=== PATIENT | female | born 1940 | race Caucasian/White ===

== ENCOUNTER 2019-12-27 16:08 | Observation (INO) | payer OTHER ==
--- NOTE | 2019-12-27 17:39 | RAD REPORT ---
EXAM DESCRIPTION: RAD - Chest Single View - 12/27/2019 5:32 pm CLINICAL HISTORY: COUGH Chest pain. COMPARISON: Chest Single View dated 07/15/2016; CHEST SINGLE VIEW dated 04/04/2012 FINDINGS: Portable technique limits examination quality. The lungs are grossly clear. The heart is normal in size. No displaced fractures. IMPRESSION: No acute intrathoracic process suspected.
[2019-12-27 18:06] LABS: Basophils % 0.4 % (0-1.3); Hematocrit 42.2 % (36.0-45.0); Lymphocytes % 25.8 % (15.3-44.8); MPV 9.1 fL (7.6-11.3); RBC Red Blood Cell Count 4.57 M/uL (3.86-4.86)
[2019-12-27 18:18] LABS: ALT/SGPT 35 U/L (12-78); Alkaline Phosphatase 123 U/L (45-117); BUN Blood Urea Nitrogen 18 mg/dL (7-18); Bicarbonate 23 mmol/L (21-32); Bilirubin Direct 0.2 mg/dL (0-0.2); Bilirubin Total 0.9 mg/dL (0.2-1.0); NT PRO-BNP 122 pg/mL (<450); Protein, Total 8.1 g/dL (6.4-8.2); Sodium Level 134 mmol/L (136-145); Troponin (Emerg Dept Use Only) < 0.02 ng/mL (0.0-0.045)
[2019-12-27 18:20] LABS: AST/SGOT 32 U/L (15-37); Magnesium 1.9 mg/dL (1.8-2.4); Potassium 4.8 mmol/L (3.5-5.1)
[2019-12-27] MEDS ORDERED: NA CHLORIDE 0.9% 1,000 ML ONE (18:20)
[2019-12-27] MEDS ORDERED: ACETAMINOPHEN 325 MG TABLET ONE (18:20)
[2019-12-27] MEDS ORDERED: CEFTRIAXONE/SWI 1gm 1 GM/10 ML SYR ONE (18:21)
[2019-12-27 18:34] LABS: Glucose Level 428 mg/dL (74-106)
[2019-12-27 18:47] LABS: Urine Blood 1+ (NEG); Urine Glucose 2+ (NEG); Urine Protein NEGATIVE (NEG); Urine pH 5.5 (5.0-7.0)
--- NOTE | 2019-12-27 19:18 | RAD REPORT ---
EXAM DESCRIPTION: CTAbdomen Pelvis W Contrast - 12/27/2019 6:51 pm CLINICAL HISTORY: Abdominal pain. Hydronephrosis;Flank pain;Abd pain COMPARISON: CT ABD PELVIS W CONTRAST dated 04/04/2012 TECHNIQUE: Biphasic CT imaging of the abdomen and pelvis was performed with 100 ml non-ionic IV cont rast. All CT scans are performed using dose optimization technique as appropriate and may include automated exposure control or mA/KV adjustment according to patient size. FINDINGS: The lung bases are clear. Mild nodular liver contour is present compatible with cirrhosis. No intra or extrahepatic biliary fernando e dilatation. Cholecystectomy. The spleen, adrenal glands, pancreas and kidneys are within normal hawkins its. Benign cyst is noted lateral cortex right kidney. No bowel obstruction, free air, free fluid or abscess. Prominent retained stool in the colon. The falguni endix is normal. No evidence of significant lymphadenopathy. No suspicious bony findings. IMPRESSION: No acute intra-abdominal or pelvic finding. Mild liver cirrhosis. Prominent retained stool in the colon.
[2019-12-27] MEDS ORDERED: INSULIN -REGULAR HUMAN 50 UNIT/0.5 ML ML ONE (19:30)
[2019-12-27] MEDS ORDERED: INSULIN GLARGINE 100 UNITS/ML SQ ONE (19:32)
--- NOTE | 2019-12-27 19:35 | ER ---
Nurse's Notes [facility] Name: Shaye Tristan Age: 79 yrs Sex: Female : 1940 Arrival Date: 12/27/2019 Time: 16:16 Bed 20 Private MD: Diagnosis: Sepsis due to other Gram-negative organisms;Dysuria;Fever, unspecified;Unspecified cirrhosis of liver;Type 2 diabetes mellitus-poorly controlled Presentation: 12/26 17:02 Chief complaint: Patient states: Seen at ED in [place], dx w/ UTI, released ph yesterday, contacted today by hospital and told to come to ED for "infection in blood", COVID swab negative, pt febrile in triage, states that she has not started antibiotics, denies pain, N/V/D. Coronavirus screen: Patient denies shortness of breath or difficulty breathing. Patient reports a measured and/or subjective temperature greater than 100.4F. Patient denies travel on a cruise ship or to a country the [facility] currently lists as an affected area. Patient denies contact with known and/or suspected case of COVID-19. Prior COVID test [place] ED, test negative. Ebola Screen: No symptoms or risks identified at this time. Initial Sepsis Screen: Does the patient meet any 2 criteria? No. Patient's initial sepsis screen is negative. Does the patient have a suspected source of infection? Yes: Dysuria/Frequency/Urgency/UTI. Risk Assessment: Do you want to hurt yourself or someone else? Patient reports no desire to harm self or others. Onset of symptoms was December 27, 2019. 17:02 Method Of Arrival: Ambulatory ph 17:02 Acuity: SARAH 3 ph Historical: - Allergies: 17:07 metformin; ph - PMHx: 17:07 Diabetes - NIDDM; ph - PSHx: 17:07 Cholecystectomy; ph - Immunization history:: Adult Immunizations unknown. - Social history:: Smoking status: Patient denies any tobacco usage or history of. - Family history:: not pertinent. Screenin:15 Abuse screen: Denies threats or abuse. Nutritional screening: No deficits noted. vc Tuberculosis screening: No symptoms or risk factors identified. Fall Risk None identified. Assessment: 17:15 General: Appears in no apparent distress. comfortable, Behavior is calm, cooperative, vc appropriate for age. Pain: Denies pain. Neuro: Level of Consciousness is awake, alert, obeys commands, Oriented to person, place, time, situation, Appropriate for age. Cardiovascular: Capillary refill < 3 seconds Patient's skin is warm and dry. Respiratory: Airway is patent Respiratory effort is even, unlabored, Respiratory pattern is regular, symmetrical. GI: No signs and/or symptoms were reported involving the gastrointestinal system. : Reports urinary frequency. Derm: Skin is intact, is healthy with good turgor. 18:15 Reassessment: Patient appears in no apparent distress at this time. Patient and/or vc family updated on plan of care and expected duration. Pain level reassessed. Patient is alert, oriented x 3, equal unlabored respirations, skin warm/dry/pink. 19:00 Reassessment: Patient appears in no apparent distress at this time. Patient and/or vc family updated on plan of care and expected duration. Pain level reassessed. Patient is alert, oriented x 3, equal unlabored respirations, skin warm/dry/pink. 20:00 Reassessment: Patient appears in no apparent distress at this time. Patient and/or vc family updated on plan of care and expected duration. Pain level reassessed. Patient is alert, oriented x 3, equal unlabored respirations, skin warm/dry/pink. Patient states feeling better. Patient states symptoms have improved. 21:00 Reassessment: Patient appears in no apparent distress at this time. Patient and/or vc family updated on plan of care and expected duration. Pain level reassessed. Patient is alert, oriented x 3, equal unlabored respirations, skin warm/dry/pink. Patient states feeling better. Patient states symptoms have improved. 21:46 Reassessment: Patient appears in no apparent distress at this time. Patient and/or vc family updated on plan of care and expected duration. Pain level reassessed. Patient is alert, oriented x 3, equal unlabored respirations, skin warm/dry/pink. Patient states feeling better. Patient states symptoms have improved. Vital Signs: 17:02 BP 121 / 88; Pulse 88; Resp 18; Temp 100.4(TE); Pulse Ox 98% on R/A; Weight 70.31 kg; ph Height 5 ft. 3 in. (160.02 cm); Pain 0/10; 18:00 BP 126 / 71; Pulse 72; Resp 18; Pulse Ox 98% on R/A; vc 19:00 BP 111 / 60; Pulse 72; Resp 18; Pulse Ox 99% on R/A; vc 20:00 BP 108 / 69; Pulse 80; Resp 20; Pulse Ox 98% on R/A; vc 21:00 BP 106 / 64; Pulse 78; Resp 14; Temp 98.9; Pulse Ox 99% ; vc 21:46 BP 98 / 60; Pulse 72; Resp 15; Temp 98.9; Pulse Ox 96% on R/A; Weight 70.31 kg; Pain vc 0/10; 21:46 Body Mass Index 27.46 (70.31 kg, 160.02 cm) vc ED Course: 16:16 Patient arrived in ED. bp1 17:07 Triage completed. ph 17:08 Arm band placed on Patient placed in an exam room, on a stretcher. ph 17:09 Bryan Haywood MD is Attending Physician. sudhir 17:15 Patient has correct armband on for positive identification. Call light in reach. vc nurse monitoring on. Pulse ox on. NIBP on. 17:17 Sully Gutierrez, RN is Primary Nurse. vc 17:32 XRAY Chest (1 view) In Process Unspecified. EDMS 18:51 CT Abd/Pelvis - IV Contrast Only: iv only, attn pyelo In Process Unspecified. EDMS 19:33 Brendon Christianson MD is Hospitalizing Provider. sudhir 20:45 Warm blanket given. Pillow given. Verbal reassurance given. jp3 20:45 Head of bed lowered. jp3 22:20 No provider procedures requiring assistance completed. Patient admitted, IV remains in vc place. Administered Medications: 18:20 Drug: NS 0.9% 1000 ml Route: IV; Rate: 1 bolus; Site: right antecubital; vc 21:01 Follow up: IV Status: Completed infusion; IV Intake: 1000ml vc 18:20 Drug: Rocephin 1 grams Route: IV; Rate: per protocol; Site: right antecubital; vc 21:01 Follow up: Response: No adverse reaction; IV Status: Completed infusion; IV Intake: 10mlvc 18:20 Drug: Tylenol 650 mg Route: PO; vc 21:01 Follow up: Response: No adverse reaction vc 19:28 Drug: LanTUS 30 units Route: Sub-Q; Site: right upper arm; vc 21:00 Follow up: Response: No adverse reaction vc 19:29 Drug: Insulin Regular Human 10 units {Co-Signature: ll1 (Shahrzad Akhtar RN).} Route: IVP; vc Site: right antecubital; 21:00 Follow up: Response: No adverse reaction vc 20:28 Drug: Meropenem 1 grams Route: IV; Rate: per protocol; Site: right antecubital; vc 21:00 Follow up: IV Status: Completed infusion; IV Intake: 1000ml vc Intake: 21:00 IV: 1000ml; Total: 1000ml. vc 21:01 IV: 10ml; Total: 1010ml. vc 21:01 IV: 1000ml; Total: 2010ml. vc Outcome: 19:34 Decision to Hospitalize by Provider. sudhir 22:20 Patient left the ED. vc 22:20 Admitted to Med/surg accompanied by tech, room 207, Report called to VASYL Guillen 22:20 Condition: good 22:20 Instructed on discharge instructions, follow up and referral plans. vc Signatures: Dispatcher [employer] Bryan Hawk MD MD cha Hall, Patricia, RN RN River Cedillo jp3 Sully Gutierrez RN RN Che Hebert RN ll1
--- NOTE | 2019-12-27 19:35 | EDPHYS ---
Physician Documentation [facility] Name: Shaye Tristan Age: 79 yrs Sex: Female : 1940 Arrival Date: 12/27/2019 Time: 16:16 Bed 20 Private MD: ED Physician Bryan Haywood HPI: 12/26 17:49 This 79 yrs old Female presents to ER via Ambulatory with complaints of sudhir Advised by another facility to seek medical treatment because lab results. 17:49 The patient presents with urinary symptoms, dysuria, frequency, urgency. Onset: The sudhir symptoms/episode began/occurred 3 day(s) ago. Modifying factors: The symptoms are alleviated by nothing, the symptoms are aggravated by nothing. Associated signs and symptoms: Pertinent positives: dysuria, fever, nausea, urinary frequency. Severity of symptoms: At their worst the symptoms were moderate, in the emergency department the symptoms are unchanged. fever, dysuria, ams, weakness, told gram - rods pos blood cultures from er last night. The patient reports fever, that was measured at 101 degrees Fahrenheit. Historical: - Allergies: 17:07 metformin; ph - PMHx: 17:07 Diabetes - NIDDM; ph - PSHx: 17:07 Cholecystectomy; ph - Immunization history:: Adult Immunizations unknown. - Social history:: Smoking status: Patient denies any tobacco usage or history of. - Family history:: not pertinent. ROS: 17:49 Eyes: Negative for injury, pain, redness, and discharge, ENT: Negative for injury, sudhir pain, and discharge, Neck: Negative for injury, pain, and swelling, Cardiovascular: Negative for chest pain, palpitations, and edema, Respiratory: Negative for shortness of breath, cough, wheezing, and pleuritic chest pain, : Negative for injury, bleeding, discharge, and swelling, MS/Extremity: Negative for injury and deformity, Skin: Negative for injury, rash, and discoloration, Neuro: Negative for headache, weakness, numbness, tingling, and seizure, Psych: Negative for depression, anxiety, suicide ideation, homicidal ideation, and hallucinations, Allergy/Immunology: Negative for hives, rash, and allergies, Endocrine: Negative for neck swelling, polydipsia, polyuria, polyphagia, and marked weight changes, Hematologic/Lymphatic: Negative for swollen nodes, abnormal bleeding, and unusual bruising. 17:49 Constitutional: Positive for body aches, chills, fever. 17:49 Back: Negative for pain at rest. 17:49 : Positive for urinary symptoms, urinary frequency, small amounts, burning with urination, foul smelling urine. Exam: 17:49 Head/Face: Normocephalic, atraumatic. Eyes: Pupils equal round and reactive to light, sudhir extra-ocular motions intact. Lids and lashes normal. Conjunctiva and sclera are non-icteric and not injected. Cornea within normal limits. Periorbital areas with no swelling, redness, or edema. ENT: Nares patent. No nasal discharge, no septal abnormalities noted. Tympanic membranes are normal and external auditory canals are clear. Oropharynx with no redness, swelling, or masses, exudates, or evidence of obstruction, uvula midline. Mucous membranes moist. Neck: Trachea midline, no thyromegaly or masses palpated, and no cervical lymphadenopathy. Supple, full range of motion without nuchal rigidity, or vertebral point tenderness. No Meningismus. Chest/axilla: Normal chest wall appearance and motion. Nontender with no deformity. No lesions are appreciated. Cardiovascular: Regular rate and rhythm with a normal S1 and S2. No gallops, murmurs, or rubs. Normal PMI, no JVD. No pulse deficits. Respiratory: Lungs have equal breath sounds bilaterally, clear to auscultation and percussion. No rales, rhonchi or wheezes noted. No increased work of breathing, no retractions or nasal flaring. Abdomen/GI: Soft, non-tender, with normal bowel sounds. No distension or tympany. No guarding or rebound. No evidence of tenderness throughout. Skin: Warm, dry with normal turgor. Normal color with no rashes, no lesions, and no evidence of cellulitis. MS/ Extremity: Pulses equal, no cyanosis. Neurovascular intact. Full, normal range of motion. Neuro: Awake and alert, GCS 15, oriented to person, place, time, and situation. Cranial nerves II-XII grossly intact. Motor strength 5/5 in all extremities. Sensory grossly intact. Cerebellar exam normal. Normal gait. Psych: Awake, alert, with orientation to person, place and time. Behavior, mood, and affect are within normal limits. 17:49 Constitutional: The patient appears febrile. Vital Signs: 17:02 BP 121 / 88; Pulse 88; Resp 18; Temp 100.4(TE); Pulse Ox 98% on R/A; Weight 70.31 kg; ph Height 5 ft. 3 in. (160.02 cm); Pain 0/10; 18:00 BP 126 / 71; Pulse 72; Resp 18; Pulse Ox 98% on R/A; vc 19:00 BP 111 / 60; Pulse 72; Resp 18; Pulse Ox 99% on R/A; vc 20:00 BP 108 / 69; Pulse 80; Resp 20; Pulse Ox 98% on R/A; vc 21:00 BP 106 / 64; Pulse 78; Resp 14; Temp 98.9; Pulse Ox 99% ; vc 21:46 BP 98 / 60; Pulse 72; Resp 15; Temp 98.9; Pulse Ox 96% on R/A; Weight 70.31 kg; Pain vc 0/10; 21:46 Body Mass Index 27.46 (70.31 kg, 160.02 cm) vc MDM: 17:09 Patient medically screened. sudhir 18:01 Differential diagnosis: viral Infection, bacterial infection, URI, pneumonia urinary sudhir tract infection. Differential Diagnosis sepsis. Data reviewed: vital signs, nurses notes, lab test result(s), EKG, radiologic studies, plain films. Data interpreted: property assessment monitor: rate is 88 beats/min, rhythm is regular. Test interpretation: by ED physician or midlevel provider: ECG, plain radiologic studies. Counseling: I had a detailed discussion with the patient and/or guardian regarding: the historical points, exam findings, and any diagnostic results supporting the discharge/admit diagnosis, lab results, radiology results, the need for further work-up and treatment in the hospital. 12/26 17:14 Order name: Basic Metabolic Panel; Complete Time: 19: [facility] 12/26 17:14 Order name: CBC with Diff; Complete Time: 18:[address] [facility] 12/26 17:14 Order name: LFT's; Complete Time: 19:08 sudhir 12/26 17:14 Order name: Magnesium; Complete Time: 19: [facility] 12/26 17:14 Order name: NT PRO-BNP; Complete Time: 19:[address] [facility] 12/26 17:14 Order name: Troponin (emerg Dept Use Only); Complete Time: 19:[address] [facility] 12/26 17:14 Order name: Lactate; Complete Time: 18:[address] [facility] 12/26 17:14 Order name: Blood Culture Adult (2) [facility] 12/26 17:14 Order name: Urine Culture [facility] 12/26 18:06 Order name: Urine Dipstick--Ancillary (enter results); Complete Time: 19:08 nm 12/26 19:46 Order name: Urine Microscopic Only mw2 12/26 20:46 Order name: Comprehensive Metabolic Panel [facility] 12/26 20:46 Order name: Comprehensive Metabolic Panel [facility] 12/26 20:46 Order name: Protime (+INR) [facility] 12/26 17:14 Order name: XRAY Chest (1 view); Complete Time: 18:[address] [facility] 12/26 17:14 Order name: EKG; Complete Time: 17:[address] [facility] 12/26 18:15 Order name: CT Abd/Pelvis - IV Contrast Only: iv only, attn pyelo; Complete Time: 19:[address] [facility] 12/26 20:46 Order name: Protime (+INR) [facility] 12/26 20:46 Order name: PTT, Activated Partial Thromb [facility] 12/26 20:46 Order name: PTT, Activated Partial Thromb [facility] 12/26 20:47 Order name: CONS Pharmacy Consult [facility] 12/26 20:47 Order name: Regular [facility] 12/26 20:47 Order name: CBC with Automated Diff [facility] 12/26 20:47 Order name: CBC with Automated Diff [facility] 12/26 17:14 Order name: Cardiac monitoring; Complete Time: 18:[address] [facility] 12/26 17:14 Order name: EKG - Nurse/Tech; Complete Time: 18:[address] [facility] 12/26 17:14 Order name: IV Saline Lock; Complete Time: 17:[address] [facility] 12/26 17:14 Order name: Labs collected and sent; Complete Time: 17:[address] [facility] 12/26 17:14 Order name: O2 Per Protocol; Complete Time: 17:[address] [facility] 12/26 17:14 Order name: O2 Sat Monitoring; Complete Time: 17:[address] [facility] 12/26 17:14 Order name: Urine Dipstick-Ancillary (obtain specimen); Complete Time: 18:[address] [facility] Administered Medications: 18:20 Drug: NS 0.9% 1000 ml Route: IV; Rate: 1 bolus; Site: right antecubital; vc 21:01 Follow up: IV Status: Completed infusion; IV Intake: 1000ml vc 18:20 Drug: Rocephin 1 grams Route: IV; Rate: per protocol; Site: right antecubital; vc 21:01 Follow up: Response: No adverse reaction; IV Status: Completed infusion; IV Intake: 10mlvc 18:20 Drug: Tylenol 650 mg Route: PO; vc 21:01 Follow up: Response: No adverse reaction vc 19:28 Drug: LanTUS 30 units Route: Sub-Q; Site: right upper arm; vc 21:00 Follow up: Response: No adverse reaction vc 19:29 Drug: Insulin Regular Human 10 units {Co-Signature: ll1 (Sharhzad Akhtar RN).} Route: IVP; vc Site: right antecubital; 21:00 Follow up: Response: No adverse reaction vc 20: Drug: Meropenem 1 grams Route: IV; Rate: per protocol; Site: right antecubital; vc 21:00 Follow up: IV Status: Completed infusion; IV Intake: 1000ml vc Disposition: 12/27/19 19:34 Hospitalization ordered by Brendon Christianson for Inpatient Admission. Preliminary diagnosis are Sepsis due to other Gram-negative organisms, Dysuria, Fever, unspecified, Unspecified cirrhosis of liver, Type 2 diabetes mellitus - poorly controlled. - Bed requested for Telemetry/MedSurg (Inpatient). - Status is Inpatient Admission. vc - Condition is Fair. - Problem is new. - Symptoms have improved. Signatures: Dispatcher [employer] EDMS Melinda Childs RN RN mw Anderson, Corey, MD MD cha Hall, Patricia, RN RN Sully Gutierrez RN RN Shahrzad Akhtar RN ll1 Corrections: (The following items were deleted from the chart) 19:38 19:34 Hospitalization Ordered by Brendon Christianson MD for Inpatient Admission. Preliminary [facility] diagnosis is Sepsis due to other Gram-negative organisms; Dysuria; Fever, unspecified. Bed requested for Telemetry/MedSurg (Inpatient). Status is Inpatient Admission. Condition is Fair. Problem is new. Symptoms have improved. [facility] 20:08 19:38 12/27/2019 19:34 Hospitalization Ordered by Brendon Christianson MD for Inpatient [facility] Admission. Preliminary diagnosis is Sepsis due to other Gram-negative organisms; Dysuria; Fever, unspecified; Unspecified cirrhosis of liver. Bed requested for Telemetry/MedSurg (Inpatient). Status is Inpatient Admission. Condition is Fair. Problem is new. Symptoms have improved. [facility] 21:16 20:08 12/27/2019 19:34 Hospitalization Ordered by Brendon Christianson MD for Inpatient mw Admission. Preliminary diagnosis is Sepsis due to other Gram-negative organisms; Dysuria; Fever, unspecified; Unspecified cirrhosis of liver; Type 2 diabetes mellitus - poorly controlled. Bed requested for Telemetry/MedSurg (Inpatient). Status is Inpatient Admission. Condition is Fair. Problem is new. Symptoms have improved. [facility] 22:20 21:16 12/27/2019 19:34 Hospitalization Ordered by Brendon Christianson MD for Inpatient vc Admission. Preliminary diagnosis is Sepsis due to other Gram-negative organisms; Dysuria; Fever, unspecified; Unspecified cirrhosis of liver; Type 2 diabetes mellitus - poorly controlled. Bed requested for Telemetry/MedSurg (Inpatient). Status is Inpatient Admission. Condition is Fair. Problem is new. Symptoms have improved. mw
[2019-12-27 20:11] LABS: Urine Bacteria 20-50 /HPF (<20); Urine Culture Reflex Order NOT NEEDED; Urine RBC <5 /HPF (NONE SEEN)
[2019-12-27] MEDS ORDERED: MORPHINE 2 MG/ML SYR IV PRN (20:44)
[2019-12-27] MEDS ORDERED: ONDANSETRON 4 MG/2 ML VIAL IV PRN (20:44)
[2019-12-27] MEDS: Levofloxacin500mg IV 500 MG/100 ML BAG IV SCH ×2 (21:00→23:40)
[2019-12-27] MEDS: NA CHLORIDE 0.9% 1,000 ML IV SCH ×2 (21:00→23:40)
[2019-12-27 22:32] VITALS: O2SAT 96
[2019-12-27 23:06] VITALS: BMI 28.6
[2019-12-28] MEDS: NA CHLORIDE 0.9% 1,000 ML IV SCH ×2 (04:24→10:05)
[2019-12-28 04:43] LABS: Absolute Lymphocytes (CBC) 3.1 K/uL (0.7-4.9); Basophils % 0.4 % (0-1.3); Lymphocytes % 29.5 % (15.3-44.8); MPV 9.2 fL (7.6-11.3); RBC Red Blood Cell Count 3.96 M/uL (3.86-4.86)
[2019-12-28 04:46] LABS: Protime INR 1.29
[2019-12-28 04:54] LABS: Albumin 2.4 g/dL (3.4-5.0); Bilirubin Total 0.6 mg/dL (0.2-1.0); Potassium 3.8 mmol/L (3.5-5.1); Protein, Total 6.4 g/dL (6.4-8.2)
[2019-12-28] MEDS ORDERED: CEFTRIAXONE/SWI 1gm 1 GM/10 ML SYR IV SCH (05:00)
[2019-12-28] MEDS ORDERED: CEFTRIAXONE 1 GM/NS 50 ML 1 GM/50 ML BAG IV SCH (06:00)
--- NOTE | 2019-12-28 08:17 | P.HP ---
Certification for Inpatient Patient admitted to: Inpatient With expected LOS: >2 Midnights Patient will require the following post-hospital care: None Practitioner: I am a practitioner with admitting privileges, knowledge of patient current condition, hospital course, and medical plan of care. Services: Services provided to patient in accordance with Admission requirements found in Title 42 Section 412.3 of the Code of Federal Regulations Patient History Date of Service: 12/27/19 Reason for admission: Sepsis/UTI History of Present Illness: Patient is a 79-year-old female came to the hospital febrile. Patient been feeling really we and short of breath. Patient was found have a urinary tract infection. Patient was really lethargic and not feeling well. Patient was admitted to the emergency room for further evaluation. Patient was started on IV fluids and IV antibiotics. Patient will be admitted for further evaluation. Allergies morphine Allergy (Intermediate, Verified 04/04/12 21:27) ITCHING/NAUSEA/HEADACHE metformin Allergy (Verified 12/27/19 23:04) Nausea/Vomiting Home Medications: Unobtainable 12/27/19 - Past Medical/Surgical History Has patient received pneumonia vaccine in the past: No Diabetic: Yes -: DM Past Surgical History: Patient denies surgical history - Family History Father Family History: Reviewed- Non-Contributory - Social History Smoking Status: Never smoker Alcohol use: No CD- Drugs: No Caffeine use: Yes Place of Residence: Home Review of Systems 10-point ROS is otherwise unremarkable Physical Examination - Vital Signs Temperature: 97.9 F Blood Pressure: 106/56 Pulse: 65 Respirations: 18 Pulse Ox (%): 94 - Physical Exam General: Alert, In no apparent distress, Oriented x3 HEENT: Atraumatic, PERRLA, Mucous membr. moist/pink, EOMI, Sclerae nonicteric Neck: Supple, 2+ carotid pulse no bruit, No LAD, Without JVD or thyroid abnormality Respiratory: Clear to auscultation bilaterally, Normal air movement Cardiovascular: Regular rate/rhythm, Normal S1 S2, No murmurs Gastrointestinal: Normal bowel sounds, Soft and benign, Non-distended, No tenderness Musculoskeletal: No clubbing, No swelling, No tenderness Integumentary: No rashes Neurological: Normal gait, Normal speech, Normal strength at 5/5 x4 extr, Normal tone, Sensation intact, Cranial nerves 3-12 intact, Normal affect Lymphatics: No axilla or inguinal lymphadenopathy - Studies Laboratory Data (last 24 hrs) 12/27/19 17:20: WBC 11.8 H, Hgb 13.9, Hct 42.2, Plt Count 144 L 12/27/19 17:20: Sodium 134 L, Potassium 4.8, BUN 18, Creatinine 1.03, Glucose 428 H*, Magnesium 1.9, Total Bilirubin 0.9, AST 32, ALT 35, Alkaline Phosphatase 123 H Assessment & Plan - Problems (Diagnosis) (1) UTI (urinary tract infection) Current Visit: Yes Status: Acute (2) Fever Current Visit: Yes Status: Acute (3) DM2 (diabetes mellitus, type 2) Current Visit: Yes Status: Acute - Plan Plan: 1. IV fluids 2. IV antibiotics 3. Out of bed and ambulate 4. Diet as tolerated 5. Strict blood sugar control 6. Anticipate discharge if patient does well over the next 24-48 hr 7. GI and DVT prophylaxis Discharge Plan: Home Plan to discharge in: 24 Hours - Advance Directives Does patient have a Living Will: No Does patient have a Durable POA for Healthcare: No - Code Status/Comfort Care Code Status Assessed: Yes Code Status: Full Code Critical Care: No Time Spent Managing PTS Care (In Minutes): 45
--- NOTE | 2019-12-28 08:22 | P.PN ---
Subjective Date of Service: 12/28/19 Patient is doing well with no new complaints. Patient denies any complaints and is feeling like she is wanting to go home. We will see how patient does over the next 24-48 hr. Review of Systems 10-point ROS is otherwise unremarkable Physical Examination - Vital Signs Temperature: 97.9 F Blood Pressure: 106/56 Pulse: 65 Respirations: 18 Pulse Ox (%): 94 - Physical Exam General: Alert, In no apparent distress Respiratory: Clear to auscultation bilaterally, Normal air movement Cardiovascular: Regular rate/rhythm, Normal S1 S2, No murmurs Gastrointestinal: Normal bowel sounds, Soft and benign, Non-distended, No tenderness Musculoskeletal: No clubbing, No swelling, No tenderness Integumentary: No rashes - Studies Laboratory Data (last 24 hrs) 12/27/19 17:20: WBC 11.8 H, Hgb 13.9, Hct 42.2, Plt Count 144 L 12/27/19 17:20: Sodium 134 L, Potassium 4.8, BUN 18, Creatinine 1.03, Glucose 428 H*, Magnesium 1.9, Total Bilirubin 0.9, AST 32, ALT 35, Alkaline Phosphatase 123 H Medications List Reviewed: Yes Assessment & Plan - Problems (Diagnosis) (1) UTI (urinary tract infection) Current Visit: Yes Status: Acute (2) Fever Current Visit: Yes Status: Acute (3) DM2 (diabetes mellitus, type 2) Current Visit: Yes Status: Acute - Plan Plan: Continue with plan of care as mentioned below 1. Continue with IV fluids 2. Continue IV antibiotics 3. Out of bed and ambulate 4. Diet as tolerated 5. Strict blood sugar control 6. Anticipate discharge today if patient does well 7. GI and DVT prophylaxis Discharge Plan: Home Plan to discharge in: 24 Hours - Advance Directives Does patient have a Living Will: No Does patient have a Durable POA for Healthcare: No - Code Status/Comfort Care Code Status: Full Code Critical Care: No Time Spent Managing PTS Care (In Minutes): 25
[2019-12-28 11:03] LABS: Absolute Lymphocytes (CBC) 2.9 K/uL (0.7-4.9); Basophils % 0.4 % (0-1.3); Lymphocytes % 32.2 % (15.3-44.8); MPV 8.9 fL (7.6-11.3); RBC Red Blood Cell Count 3.96 M/uL (3.86-4.86)
[2019-12-28 11:18] LABS: Magnesium 1.7 mg/dL (1.8-2.4); Phosphorus 2.4 mg/dL (2.5-4.9); Potassium 3.7 mmol/L (3.5-5.1)
[2019-12-28 13:06] VITALS: BP 109/64; TEMP 97.5
--- NOTE | 2020-01-02 00:51 | P.DS ---
Discharge Date: 12/28/19 Disposition: ROUTINE DISCHARGE Discharge Condition: GOOD Reason for Admission: Sepsis/UTI - Problems (1) UTI (urinary tract infection) Status: Acute (2) Fever Status: Acute (3) DM2 (diabetes mellitus, type 2) Status: Acute Brief History of Present Illness: Patient is a 79-year-old female came to the hospital febrile. Patient been feeling really we and short of breath. Patient was found have a urinary tract infection. Patient was really lethargic and not feeling well. Patient was admitted to the emergency room for further evaluation. Patient was started on IV fluids and IV antibiotics. Patient will be admitted for further evaluation. Hospital Course: Patient has done really well during her hospital stay. She is feeling much better. She is wanting to go home. At this time, patient is to be discharged with outpatient follow up. Patient is to return to the Emergency room if her symptoms worsen. Patient will follow with PCP. Return to the emergency room if symptoms worsen. Vital Signs/Physical Exam: Temp Pulse Resp BP Pulse Ox 97.5 F 62 20 109/64 96 12/28/19 12:00 12/28/19 12:00 12/28/19 12:00 12/28/19 12:00 12/28/19 12:00 General: Alert, In no apparent distress, Oriented x3 Laboratory Data at Discharge: WBC 9.1 K/uL (4.3-10.9) 12/28/19 10:52 Hgb 12.6 g/dL (12.0-15.0) 12/28/19 10:52 Hct 36.0 % (36.0-45.0) 12/28/19 10:52 Plt Count 121 K/uL (152-406) L 12/28/19 10:52 PT 15.1 SECONDS (9.5-12.5) H 12/28/19 03:57 INR 1.29 12/28/19 03:57 APTT 27.3 SECONDS (24.3-36.9) 12/28/19 03:57 Sodium 137 mmol/L (136-145) 12/28/19 10:52 Potassium 3.7 mmol/L (3.5-5.1) 12/28/19 10:52 BUN 14 mg/dL (7-18) 12/28/19 10:52 Creatinine 0.77 mg/dL (0.55-1.3) 12/28/19 10:52 Glucose 318 mg/dL (74-106) H 12/28/19 10:52 Phosphorus 2.4 mg/dL (2.5-4.9) L 12/28/19 10:52 Magnesium 1.7 mg/dL (1.8-2.4) L 12/28/19 10:52 Total Bilirubin 0.6 mg/dL (0.2-1.0) 12/28/19 03:57 AST 19 U/L (15-37) 12/28/19 03:57 ALT 28 U/L (12-78) 12/28/19 03:57 Alkaline Phosphatase 94 U/L (45-117) 12/28/19 03:57 Home Medications: Levofloxacin [Levaquin] 500 mg PO DAILY #7 tablet 12/28/19 New Medications: Levofloxacin [Levaquin] 500 mg PO DAILY #7 tablet Patient Discharge Instructions: OK TO DC IV AND DC HOME. FOLLOW-UP WITH PRIMARY CARE PROVIDER IN 1-2 WEEKS. RETURN TO THE ER IF symptoms worsen. CALL or TEXT DR. CLAY AT [phone] IF ANY QUESTIONS REGARDING HOSPITAL STAY. PLEASE CALL THE FLOOR AT [phone] IF ANY MEDICATION OR NURSING QUESTIONS. Diet: Regular Activity: Fall precautions Time spent managing pt's care (in minutes): 20
== END 2019-12-28 15:50 | disposition home or self-care (01) ==
LOC: ER 16:08 → INTOOBSV 20:44 → ERHOLD 20:44 → 2ND 22:04
PROVIDERS: ADMIT Hospitalist; ATTEND Hospitalist
DX: N39.0 Urinary tract infection, site not specified (principal); R50.9 Fever, unspecified; R06.02 Shortness of breath; Z20.828 Contact with and (suspected) exposure to other viral communicable diseases; E11.9 Type 2 diabetes mellitus without complications; K74.60 Unspecified cirrhosis of liver
CPT/HCPCS: 96365; 93005; 87040 ×2; 87088; 85025 ×3; 87086; 80048 ×2; 36415; 83735 ×2; 84100; 85610; 82947; 80076; 83605 ×2; 85730; 83036; 84484; 80053; 84145; 83880; 74177; 71045; 96375; 96372; 99285; 96366; U0002; Q9967; J1815; J0696 ×2; J7030 ×3; G0378 ×3; 81003; 81015

== ENCOUNTER 2020-06-08 16:46 | Emergency (ER) | payer OTHER ==
--- NOTE | 2020-06-08 20:56 | RAD REPORT ---
EXAM DESCRIPTION: RAD - Chest Single View - 06/08/2020 8:48 pm CLINICAL HISTORY: COUGH Chest pain. COMPARISON: Chest Single View dated 12/27/2019; Chest Single View dated 07/15/2016; CHEST SINGLE VIEW d ated 04/04/2012 FINDINGS: Portable technique limits examination quality. The lungs are grossly clear. The heart is normal in size. No displaced fractures. IMPRESSION: No acute intrathoracic process suspected.
[2020-06-08] MEDS ORDERED: NA CHLORIDE 0.9% 1,000 ML ONE (21:42)
[2020-06-08 22:08] LABS: Absolute Lymphocytes (CBC) 4.5 K/uL (0.7-4.9); Basophils % 0.4 % (0-1.3); Hematocrit 40.8 % (36.0-45.0); Lymphocytes % 45.5 % (15.3-44.8); MPV 8.9 fL (7.6-11.3); RBC Red Blood Cell Count 4.51 M/uL (3.86-4.86)
[2020-06-08 22:21] LABS: Protime INR 1.05
[2020-06-08 22:36] LABS: Albumin 3.1 g/dL (3.4-5.0); Bilirubin Direct 0.1 mg/dL (0-0.2); Bilirubin Total 0.4 mg/dL (0.2-1.0); Potassium 3.9 mmol/L (3.5-5.1); Protein, Total 7.7 g/dL (6.4-8.2)
[2020-06-08 23:32] LABS: Urine Blood 1+ (NEG); Urine Glucose 2+ (NEG); Urine Protein NEGATIVE (NEG); Urine Specific Gravity 1.025 (1.005-1.030)
--- NOTE | 2020-06-08 23:52 | ER ---
Nurse's Notes [facility] Name: Shaye Tristan Age: 80 yrs Sex: Female : 1940 Arrival Date: 06/08/2020 Time: 16:49 Bed 18 Private MD: Diagnosis: Diarrhea, unspecified;Diverticulosis Presentation: 06/08 17:17 Chief complaint: Patient states: "I have no energy, sometimes fever, and black aa5 diarrhea". Pt reports symptoms began June 02. Pt reports slight cough, denies vomiting. Coronavirus screen: cough unrelated to allergies, diarrhea, Client presents with at least one sign or symptom that may indicate coronavirus-19. Standard/surgical mask placed on the client. Provider contacted for isolation considerations. Ebola Screen: Patient negative for fever greater than or equal to 101.5 degrees Fahrenheit, and additional compatible Ebola Virus Disease symptoms. Initial Sepsis Screen: Does the patient meet any 2 criteria? No. Patient's initial sepsis screen is negative. Does the patient have a suspected source of infection? No. Patient's initial sepsis screen is negative. Risk Assessment: Do you want to hurt yourself or someone else? Patient reports no desire to harm self or others. Onset of symptoms was May 2020. 17:17 Acuity: SARAH 3 aa5 17:17 Method Of Arrival: Ambulatory aa5 Historical: - Allergies: 17:19 metformin (Upset stomach); aa5 - PMHx: 17:19 Diabetes - NIDDM; aa5 - PSHx: 17:19 Cholecystectomy; aa5 - Immunization history:: Adult Immunizations unknown. - Social history:: Smoking status: Patient denies any tobacco usage or history of. Screenin:55 Abuse screen: Denies threats or abuse. Nutritional screening: No deficits noted. vg1 Tuberculosis screening: No symptoms or risk factors identified. Fall Risk No fall in past 12 months (0 pts). No secondary diagnosis (0 pts). IV access (20 points). Ambulatory Aid- None/Bed Rest/Nurse Assist (0 pts). Gait- Normal/Bed Rest/Wheelchair (0 pts) Mental Status- Oriented to own ability (0 pts). Total Osullivan Fall Scale indicates No Risk (0-24 pts). Assessment: 19:55 General: Appears in no apparent distress. comfortable, Behavior is calm, cooperative. vg1 Pain: Denies pain. Neuro: Level of Consciousness is awake, alert, obeys commands, Oriented to person, place, time, situation. Cardiovascular: Patient's skin is warm and dry. Respiratory: Airway is patent Respiratory effort is even, unlabored, Respiratory pattern is regular, symmetrical. GI: Reports she thinks she has stomach cancer because shes been having black diarrhea since 06/06/20. States no current ABD pain at this time. ABD pain comes and goes. Patient currently denies diarrhea, nausea, vomiting. : No signs and/or symptoms were reported regarding the genitourinary system. EENT: No signs and/or symptoms were reported regarding the EENT system. Derm: Skin is pink, warm \\T\\ dry. Musculoskeletal: Range of motion: intact in all extremities. 19:55 GI: Bowel sounds present X 4 quads. vg1 21:00 Reassessment: Patient appears in no apparent distress at this time. No changes from vg1 previously documented assessment. Patient denies pain at this time. 22:00 Reassessment: Patient appears in no apparent distress at this time. No changes from vg1 previously documented assessment. Patient denies pain at this time. 23:03 Reassessment: Patient appears in no apparent distress at this time. No changes from vg1 previously documented assessment. Patient denies pain at this time. Patient states feeling better. 23:46 Reassessment: Received VO from DR Lopze to order Covid 19 test. vg1 06/09 00:09 Reassessment: Awaiting Covid swabs from lab, patient awaiting d/c instructions. vg1 Vital Signs: 06/08 17:17 BP 128 / 77; Pulse 70; Resp 16 S; Temp 97.7(O); Pulse Ox 100% on R/A; Weight 68.04 kg aa5 (R); Height 5 ft. 3 in. (160.02 cm) (R); 20:00 BP 123 / 69; Pulse 68; Resp 18; Pulse Ox 100% on R/A; vg1 21:00 BP 132 / 72; Pulse 65; Resp 16; Pulse Ox 100% on R/A; vg1 22:00 BP 132 / 80; Pulse 68; Resp 18; Pulse Ox 98% on R/A; vg1 17:17 Body Mass Index 26.57 (68.04 kg, 160.02 cm) aa5 ED Course: 16:49 Patient arrived in ED. ag5 17:14 Arm band placed on. 5 17:19 Triage completed. [facility] 19:45 Vance Lopez MD is Attending Physician. [facility] 19:55 Patient has correct armband on for positive identification. Placed in gown. Bed in low vg1 position. Call light in reach. Side rails up X2. Door closed. Warm blanket given. 19:56 Savita Pires, RN is Primary Nurse. vg1 20:48 Chest Single View XRAY In Process Unspecified. EDMS 21:54 Inserted saline lock: 20 gauge in left antecubital area, using aseptic technique. Blood dh4 collected. 23:08 CT Abd/Pelvis - IV Contrast Only In Process Unspecified. EDMS 23:15 Urine Dipstick--Ancillary (enter results) Sent. dh4 23:51 Tino Olmstead MD is Referral Physician. [facility] 06/09 00:20 No provider procedures requiring assistance completed. IV discontinued, intact, vg1 bleeding controlled, No redness/swelling at site. Pressure dressing applied. Administered Medications: 06/08 21:59 Drug: NS 0.9% 1000 ml Route: IV; Rate: 1000 ml; Site: left antecubital; vg1 06/09 01:32 Follow up: IV Status: Completed infusion vg1 Outcome: 06/08 23:52 Discharge ordered by . [facility] 06/09 00:20 Discharged to home via ambulance. vg1 Condition: stable Discharge instructions given to patient, Instructed on discharge instructions, follow up and referral plans. medication usage, Demonstrated understanding of instructions, follow-up care, medications, Prescriptions given X 3. 00:26 Patient left the ED. sg Addendum: 06/13/2020 09:14 Addendum: COVID-19 Result: Negative result given to RN to notify pt. Left voice mail. d m5 13:22 Addendum: COVID-19 Result: Negative result given to RN to notify pt. Other: pt called b d back, was given negative result by nurse SIXTO Roberts. Signatures: Dispatcher [employer] EDMN Charlene Francisco Deana, RN RN dm5 Raleigh Alvarado RN RN sg Calderon, Audri, RN RN aa5 Jesus Cunha ag5 Lul Phelps 4 Savita Pires RN RN vg1 Vance Lopez MD MD mh7 Corrections: (The following items were deleted from the chart) 06/08 17:20 17:17 Temp 97.7F Oral; aa5 aa5
--- NOTE | 2020-06-08 23:52 | EDPHYS ---
Physician Documentation [facility] Name: Shaye Tristan Age: 80 yrs Sex: Female : 1940 Arrival Date: 06/08/2020 Time: 16:49 Bed 18 Private MD: ED Physician Vance Lopez HPI: 06/08 21:20 This 80 yrs old Female presents to ER via Ambulatory with complaints of mh7 Fever, Diarrhea, Body Aches. 21:20 The patient presents to the emergency department with diarrhea, that is intermittent. mh7 Onset: The symptoms/episode began/occurred 6 day(s) ago. Possible causes: unknown. The symptoms are aggravated by nothing. The symptoms are alleviated by nothing. Associated signs and symptoms: Pertinent positives: fever. 21:21 Associated signs and symptoms: Pertinent negatives: abdominal pain, anorexia, belching, mh7 constipation, dysuria, flatulence, GI bleeding, hematuria, nausea, vaginal discharge, vomiting. Severity of symptoms: At their worst the symptoms were moderate 3 day(s) ago, in the emergency department the symptoms have improved moderately. Patient started to notice some black stool after taking Pepto Bismol but has not had any bloody stool.. Historical: - Allergies: 17:19 metformin (Upset stomach); aa5 - PMHx: 17:19 Diabetes - NIDDM; aa5 - PSHx: 17:19 Cholecystectomy; aa5 - Immunization history:: Adult Immunizations unknown. - Social history:: Smoking status: Patient denies any tobacco usage or history of. ROS: 21:21 Eyes: Negative for injury, pain, redness, and discharge, ENT: Negative for injury, mh7 pain, and discharge, Neck: Negative for injury, pain, and swelling, Cardiovascular: Negative for chest pain, palpitations, and edema, Back: Negative for injury and pain, : Negative for injury, bleeding, discharge, and swelling, MS/Extremity: Negative for injury and deformity, Skin: Negative for injury, rash, and discoloration, Neuro: Negative for headache, weakness, numbness, tingling, and seizure, Psych: Negative for depression, anxiety, suicide ideation, homicidal ideation, and hallucinations, Allergy/Immunology: Negative for hives, rash, and allergies, Endocrine: Negative for neck swelling, polydipsia, polyuria, polyphagia, and marked weight changes, Hematologic/Lymphatic: Negative for swollen nodes, abnormal bleeding, and unusual bruising. Exam: 21:21 Constitutional: This is a well developed, well nourished patient who is awake, alert, mh7 and in no acute distress. Head/Face: Normocephalic, atraumatic. Eyes: Pupils equal round and reactive to light, extra-ocular motions intact. Lids and lashes normal. Conjunctiva and sclera are non-icteric and not injected. Cornea within normal limits. Periorbital areas with no swelling, redness, or edema. Neck: Trachea midline, no thyromegaly or masses palpated, and no cervical lymphadenopathy. Supple, full range of motion without nuchal rigidity, or vertebral point tenderness. No Meningismus. Chest/axilla: Normal chest wall appearance and motion. Nontender with no deformity. No lesions are appreciated. Cardiovascular: Regular rate and rhythm with a normal S1 and S2. No gallops, murmurs, or rubs. Normal PMI, no JVD. No pulse deficits. Respiratory: Lungs have equal breath sounds bilaterally, clear to auscultation and percussion. No rales, rhonchi or wheezes noted. No increased work of breathing, no retractions or nasal flaring. 21:21 Back: No spinal tenderness. No costovertebral tenderness. Full range of motion. Skin: Warm, dry with normal turgor. Normal color with no rashes, no lesions, and no evidence of cellulitis. MS/ Extremity: Pulses equal, no cyanosis. Neurovascular intact. Full, normal range of motion. Neuro: Awake and alert, GCS 15, oriented to person, place, time, and situation. Cranial nerves II-XII grossly intact. Motor strength 5/5 in all extremities. Sensory grossly intact. Cerebellar exam normal. Normal gait. Psych: Awake, alert, with orientation to person, place and time. Behavior, mood, and affect are within normal limits. 21:21 Abdomen/GI: Inspection: abdomen appears normal, Bowel sounds: normal, in all quadrants, Palpation: abdomen is soft and non-tender, in all quadrants, Rectal exam: rectal tone normal, Stool: green, hemorrhoid(s), are not appreciated, mass, is not appreciated, swelling, is not appreciated, tenderness, is not appreciated, fecal impaction, is not appreciated, Indicators: McBurney's point is not tender, Gamble's sign is negative, Rovsing's sign is negative, Obturator sign is negative, Psoas sign is negative, Liver: no appreciated palpable abnormalities, Hernia: not appreciated. 23:21 Abdomen/GI: Rectal exam: Stool: guaiac negative. [facility] Vital Signs: 17:17 BP 128 / 77; Pulse 70; Resp 16 S; Temp 97.7(O); Pulse Ox 100% on R/A; Weight 68.04 kg aa5 (R); Height 5 ft. 3 in. (160.02 cm) (R); 20:00 BP 123 / 69; Pulse 68; Resp 18; Pulse Ox 100% on R/A; vg1 21:00 BP 132 / 72; Pulse 65; Resp 16; Pulse Ox 100% on R/A; vg1 22:00 BP 132 / 80; Pulse 68; Resp 18; Pulse Ox 98% on R/A; vg1 17:17 Body Mass Index 26.57 (68.04 kg, 160.02 cm) aa5 MDM: 23:49 Differential diagnosis: Nonspecific abd pain, gastritis, pancreatitis, diverticulitis, mh7 viral gastroenteritis, gastroenteritis. Data reviewed: vital signs, nurses notes, lab test result(s), CBC, electrolytes, urinalysis, radiologic studies, CT scan. Data interpreted: Pulse oximetry: on room air is 98 %. Interpretation: normal. Counseling: I had a detailed discussion with the patient and/or guardian regarding: the historical points, exam findings, and any diagnostic results supporting the discharge/admit diagnosis, lab results, radiology results, the need for outpatient follow up, to return to the emergency department if symptoms worsen or persist or if there are any questions or concerns that arise at home. Response to treatment: the patient's symptoms have resolved after treatment, the patient's blood pressure is in an acceptable range, mental status has returned to baseline, the patient no longer shows bradycardia, the patient is not short of breath, the patient is not tachycardic, the patient's pain is gone, the patient's temperature has normalized. 23:[address] [facility] 06/08 20:26 Order name: Basic Metabolic Panel; Complete Time: 23:21 [facility] 06/08 20:26 Order name: CBC with Diff; Complete Time: 22:26 [facility] 06/08 20:26 Order name: Hepatic Function; Complete Time: 23:21 7 06/08 20:26 Order name: Lipase; Complete Time: 23:21 7 06/08 20:26 Order name: Protime (+inr); Complete Time: 22:26 [facility] 06/08 20:26 Order name: Ptt, Activated; Complete Time: 22:26 [facility] 06/08 20:26 Order name: IV Saline Lock; Complete Time: 21:59 7 06/08 20:26 Order name: Labs collected and sent; Complete Time: 21:59 [facility] 06/08 20:28 Order name: CT Abd/Pelvis - IV Contrast Only [facility] 06/08 20:28 Order name: Chest Single View XRAY; Complete Time: 22:26 [facility] 06/08 23:14 Order name: Urine Dipstick--Ancillary (enter results); Complete Time: 23:36 tt3 06/08 23:46 Order name: COVID-19 vg1 Administered Medications: 21:59 Drug: NS 0.9% 1000 ml Route: IV; Rate: 1000 ml; Site: left antecubital; vg1 06/09 01:32 Follow up: IV Status: Completed infusion vg1 Disposition: 06/08/20 23:52 Discharged to Home. Impression: Diarrhea, unspecified, Diverticulosis. - Condition is Stable. - Discharge Instructions: Diverticulosis, Diarrhea, Adult, [id number]. - Prescriptions for Bentyl 20 mg Oral Tablet - take 1 tablet by ORAL route every 6 hours As needed; 20 tablet. Flagyl 500 mg Oral Tablet - take 1 tablet by ORAL route every 8 hours for 7 days; 21 tablet. Cipro 500 mg Oral Tablet - take 1 tablet by ORAL route every 12 hours for 5 days; 10 tablet. - Medication Reconciliation Form, Thank You Letter, Antibiotic Education, Prescription Opioid Use form. - Follow up: Private Physician; When: 1 - 2 days; Reason: Worsening of condition, Recheck today's complaints, Continuance of care, Re-evaluation by your physician. Follow up: Tino Olmstead MD; When: 1 - 2 days; Reason: Worsening of condition, Recheck today's complaints. - Problem is new. - Symptoms have improved. Signatures: Dispatcher [employer] EDRaleigh Humphreys RN RN sg Kassi Larkin, RN RN aa5 Savita Pires RN RN vg1 Vance Lopez MD MD mh7 Corrections: (The following items were deleted from the chart) 00:26 06/08 23:52 06/08/2020 23:52 Discharged to Home. Impression: Diarrhea, unspecified; sg Diverticulosis. Condition is Stable. Forms are Medication Reconciliation Form, Thank You Letter, Antibiotic Education, Prescription Opioid Use. Follow up: Private Physician; When: 1 - 2 days; Reason: Worsening of condition, Recheck today's complaints, Continuance of care, Re-evaluation by your physician. Follow up: Tino Olmstead; When: 1 - 2 days; Reason: Worsening of condition, Recheck today's complaints. Problem is new. Symptoms have improved. mh7
[2020-06-09 00:44] VITALS: TEMP 97.7
[2020-06-09 00:47] VITALS: BP 132/80; O2SAT 98
--- NOTE | 2020-06-09 17:57 | RAD REPORT ---
EXAM DESCRIPTION: CT Abdomen and Pelvis With Intravenous Contrast CLINICAL HISTORY: The patient is 80 years old and is Female; diarrhea;Abd pain TECHNIQUE: Axial computed tomography images of the abdomen and pelvis with intravenous contrast. S agittal and coronal reformatted images were created and reviewed. This CT exam was performed using one or more of the following dose reduction techniques: automated exposure control, adjustment of t he mA and/or kV according to patient size, and/or use of iterative reconstruction technique. COMPARISON: No relevant prior studies available. FINDINGS: LUNG BASES: Unremarkable. No mass. No consolidation. ABDOMEN: LIVER: The liver is enlarged with a nodular contour. A discrete mass is not seen. GALLBLADDER AND BILE DUCTS: The gallbladder is not seen and is likely surgically absent. PANCREAS: No ductal dilation. No mass. SPLEEN: Unremarkable. ADRENALS: Unremarkable. No mass. KIDNEYS AND URETERS: Unremarkable. The kidneys enhance symmetrically. No obstructing renal or ure teral calculus is seen. No hydronephrosis or hydroureter. No perinephric fluid or stranding. STOMACH AND BOWEL: The stomach is decompressed. The small bowel is normal in caliber. A moderate amount of stool is present throughout the colon. No evidence of bowel obstruction. No significant bow el wall thickening. Colonic diverticulosis is noted, without associated inflammatory changes to sugge st diverticulitis. PELVIS: APPENDIX: The appendix is normal in caliber without surrounding inflammation. BLADDER: Unremarkable. No mass. REPRODUCTIVE: Unremarkable as visualized. ABDOMEN and PELVIS: INTRAPERITONEAL SPACE: Unremarkable. No free air. No significant fluid collection. BONES/JOINTS: Mild multilevel degenerative change of the spine is present. SOFT TISSUES: The soft tissues are normal. VASCULATURE: Atherosclerosis of the vasculature is present. The vessels are normal in caliber and patent. No abdominal aortic aneurysm. LYMPH NODES: Unremarkable. No enlarged lymph nodes. IMPRESSION: 1. Colonic diverticulosis without evidence of diverticulitis. 2. Cirrhotic liver. Electronically signed by: Urmila Carranza MD 06/08/2020 11:18 PM SAMPLE EXAMINER Due to temporary technical issues with the PACS/Fluency reporting system, reports are being signed by the in house radiologists without review as a courtesy to insure prompt reporting. The interpreting radiologist is fully responsible for the content of the report
== END 2020-06-09 00:26 | disposition home or self-care (01) ==
LOC: ER 16:46
DX: K57.30 Diverticulosis of large intestine without perforation or abscess without bleeding (principal); Z20.828 Contact with and (suspected) exposure to other viral communicable diseases; E11.9 Type 2 diabetes mellitus without complications; Z88.8 Allergy status to other drugs, medicaments and biological substances
CPT/HCPCS: 96361; 85025; 80048; 36415; 85610; 80076; 85730; 81003; 83690; 74177; 71045; 96360; 99284; U0002; Q9967; J7030

== ENCOUNTER 2021-04-24 03:27 | Emergency (ER) | payer OTHER ==
--- OUTSIDE RECORDS SUMMARY | 2021-04-24 03:29 | XMS REPORT | Continuity of Care Document ---
:1940 Author Organization [facility] t Address Formerly [facility] Mateo [address] [place] [address] Care Team Providers Name Role Phone Matt Mercado DO Attending Clinician Matt MERCADO Attending Clinician Unavailable Payers Payer Name Policy Type Policy Number Effective Date Expiration Date S ource Problems Condition Condition Condition Status Onset Resolution Last Treating Co mments Source Name Details Category Date Date Treatment Clinician Date No known No known Disease Unive rs active active ity of problems problems [facility] Allergies, Adverse Reactions, Alerts Allergy Allergy Status Severity Reaction(s) Onset Inactive Treating Comm ents Source Name Type Date Date Clinician Onabotul Propensi Active Swelling Univ ers inumtoxi ty to 01-16 ity of na adverse 00:00: [place] reaction 00 [facility] [place] ONABOTUL DRUG Active Swelling Univer s INUMTOXI INGREDI 01-16 ity of NA 00:00: [place] 00 [facility] Social History Social Habit Start Date Stop Date Quantity Comments Source Exposure to Not sure [facility] SARS-CoV-2 (event) Medica l [place] Sex Assigned [birth year] [facility] 00:00:00 00:00:00 [facility] Smoking Status Start Date Stop Date Source Unknown if ever smoked [facility] Medications Ordered Filled Start Stop Current Ordering Indication Dosage Frequency Signature Comments Components Source Medication Medication Date Date Medication? Clinician (SIG) Name Name iopamidol 2020- No [id number] 100mL 100 mL, Univers (ISOVUE 01-16 Intravenou ity o f 370-500 mL) 19:00: 17:54 s, ONCE, 1 [place] injection 00 :00 dose, Mon Medic al 100 mL 01/16/21 at Branch 1400, Routine NaCl 0.9% 2021-0 2021- No 500mL at 999 Univ ers (NS) bolus 01-16 mL/hr, 500 it y of infusion 18:00: 19:00 mL, IV [place] 500 mL 00 :00 Piggyback, Medical ONCE, 1 Branch dose, 01/16/21 at 1300, STAT ondansetron Yes [id number] 4mg Take 1 Univers (ZOFRAN 01-16 tablet by ity of ODT) 4 mg 00:00: mouth [place] disintegrat 00 every 8 Medic al ing tablet (eight) Branch hours as needed for Nausea and Vomiting (N/V). Vital Signs Vital Name Observation Time Observation Value Comments Source Systolic blood 2021-01-16 19:00:00 120 [facility] Diastolic blood 2021-01-16 19:00:00 68 mm[Hg] [facility] Heart rate 2021-01-16 19:00:00 69 /min [facility] Respiratory rate 2021-01-16 19:00:00 18 /min General acute hospital Oxygen saturation in 2021-01-16 19:00:00 98 /min [facility] Arterial blood by [facility] Pulse oximetry [place] Body temperature 2021-01-16 16:42:00 36.56 [facility] acute hospital Body height 2021-01-16 16:42:00 160 cm [facility] Body weight 2021-01-16 16:42:00 72.576 kg [facility] BMI 2021-01-16 16:42:00 28.34 kg/m2 [facility] Procedures Procedure Date / Time Performed Performing Clinician [facility] e ASSIGNMENT OF BENEFITS 2021-01-16 19:13:44 Doctor Unassigned, No [facility] Name [facility] URINALYSIS 2021-01-16 19:05:00 Lynda Mercado [facility] CT ABDOMEN PELVIS W 2021-01-16 17:57:09 Lynda Mercado [facility] CONTRAST [facility] LIPASE 2021-01-16 16:55:00 Lynda Mercado [facility] TROPONIN I 2021-01-16 16:55:00 Lynda Mercado [facility] HEPATIC FUNCTION PANEL 2021-01-16 16:55:00 [id number] Branch (ALB,T.PRO,BILI T,BU/BC,ALT,AST,ALK PHOS) BASIC METABOLIC PANEL 2021-01-16 16:55:00 Lynda Mercado [facility] (NA, K, CL, CO2, Medical Branch GLUCOSE, BUN, CREATININE, CA) CBC WITH DIFF 2021-01-16 16:55:00 Lynda Mercado [facility] NOTICE OF PRIVACY 2021-01-16 16:06:11 Doctor Unassigned, No [facility] PRACTICES Name [facility] CONSENT/REFUSAL FOR 2021-01-16 16:02:57 Doctor Unassigned, No [facility] DIAGNOSIS AND Name [facility] TREATMENT Encounters Start End Encounter Admission Attending Care Care Encounter Source Date/Time Date/Time Type Type Clinicians Facility Department ID 2021-01-16 2021-01-16 Emergency Jess [facility] [id number] Univers 12:05:00 14:45:00 Lynda Calderon [id number] [facility] [id number] [facility] [id number] [facility] 084 Branch 2021-01-16 2021-01-16 Emergency X JESS [facility] ERT [id number] Univers 11:02:00 11:02:00 LYNDA graham [facility] Results Test Description Test Time Test Comments Results Result Comments Source URINALYSIS 2021-01-16 19:39:58 Test Item Value Reference Range Interpretation Comme nts APPEARANCE (test code = Clear Clear 9183886224) COLOR (test code = 2965088804) Yellow Yellow PH (test code = 6046480827) 4.8-8.0 SP GRAVITY (test code = 1.003-1.030 H 0116150092) GLU U QUAL (test code = 500 mg/dL Normal A 7085718789) BLOOD (test code = 0333685562) 1+ Negative A KETONES (test code = 3918834532) Negative Negative PROTEIN (test code = 2887-8) Negative Negative UROBILIN (test code = Normal Normal 6405604068) BILIRUBIN (test code = Negative Negative 8579282484) NITRITE (test code = 4858480114) Negative Negative LEUK ANNALISE (test code = Negative Negative 4410020256) RBC/HPF (test code = 7703868324) See_Comment [Automated message] The system which ge nerated this result transmit rodriguez reference range: 0 - 3 HP F. The reference range was not used to interpret th is result as normal/abnormal . WBC/HPF (test code = 4465581236) <1 See_Comment [Automated message] The system which ge nerated this result transmit rodriguez reference range: 0 - 5 HP F. The reference range was not used to interpret th is result as normal/abnormal . BACTERIA (test code = Negative Negative 0896878880) SQ EPITH (test code = HPF 7557364867) Lab Interpretation (test code = Abnormal 68676-7) [facility] [id number] 18:37:59 1. ?No acute abnormality identified in the abdomen or pelvis. 2. 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 3. ?Suspected dilated sidebranch of the pancreatic duct withinthepancreatic head. Recommend correlation with any prior imaging if availableto establish stability. Further evaluation with nonemergent MRI MRCP forthis possible sidebranch IPMN. Also incidental note of pancreas divisum. 4. ?Questionable nonuniform thickening of the endometrium. May becorrelated for symptoms of vaginal bleeding. Nonemergent pelvic ultrasoundmay be considered for further evaluation.EXAM: CT ABDOMEN PELVIS W CONTRAST HISTORY: 80 year -old woman with abdominal pain, acute, nonlocalized TECHNIQUE: Contrast - IV contrast was given, no oral contrast was given Portal venous phase - abdomen and pelvisReconstructions - coronal and sagittal planes COMPARISON: None FINDINGS:Statements: None. Thoracic: Scattered areas of subpleural interstitial opacities,nonspecific. Hepatobiliary: Cirrhotic hepatic pathology with nodular contour. No focal hepatic lesiondetected on this single phase CT examination. Gallbladder is absent. No biliary dilation. Pancreas: Moderate atrophic changes throughout the pancreas. Findings ofpancreas divisum. Well-circumscribed described serpiginous hypoattenuatingstructure in the posterior aspect of the pancreatic head (2:47) mayrepresent dilated side branch(es)of the pancreatic duct. Spleen: Spleen measures up to 12 cm. Adrenals: No abnormality identified ineither adrenal gland. Genitourinary: 2 small well-circumscribed hypoattenuating lesions at therightkidney are too small to characterize but likely represent smallcysts. Symmetric enhancement. No hydronephrosis. The bladder isunremarkable. Questionable nonuniform thickening of the endometrium. Uterusand adnexa otherwise unremarkable. Gastrointestinal: No evidence of bowel obstruction or perientericinflammation. The appendix is normal. Vascular/Lymphatics: Mildly enlarged alma hepatis lymph nodes are likelyreactive in the setting of chronic liver disease. Abdominal aorta is normalin caliber. Moderate mixed calcified and noncalcified aortoiliacatherosclerotic disease. Esophageal varices present. MS K/Body Wall: No concerning bony lesion identified. Heterogeneousosteopenia. Degenerative changes in the lumbar spine. Peritoneum/Other: No extraluminal air. No extraluminal fluid. [facility], Radiant ResultsInft User - 01/16/2021 1:39 PM CDT EXAM: CT ABDOMEN PELVIS W CONTRASTHISTORY: 80 year -old woman with abdominal pain, acute, nonlocalized TECHNIQUE: Contrast - IV contrast was given, no oral contrast was given Portal venous phase - abdomen and pelvisReconstructions - coronal and sagittal planesCOMPARISON: NoneFINDINGS:Statements: None.Thoracic: Scattered areas of subpleural interstitial opacities,nonspecific.Hepatobiliary: Cirrhotic hepatic pathology with nodular contour. No focal hepatic lesiondetected on this single phase CT examination.Gallbladder is absent. No biliary dilation.Pancreas: Moderate atrophic changes throughout the pancreas. Findings ofpancreas divisum. Well-circumscribed described serpiginous hypoattenuatingstructure inthe posterior aspect of the pancreatic head (2:47) mayrepresent dilated side branch(es) of the pancreatic duct.Spleen: Spleen measures up to 12 cm. Adrenals: No abnormality identified in either adrenalgland. Genitourinary: 2 small well- circumscribed hypoattenuating lesions at theright kidney are too small to characterize but likely represent smallcysts. Symmetric enhancement. No hydronephrosis. The bladder isunremarkable. Questionable nonuniform thickening of the endometrium. Uterusand adnexa otherwise unremarkable.Gastrointestinal: No evidence of bowel obstruction or perientericinflammation. The appendix is normal.Vascular/Lymphatics: Mildly enlarged alma hepatis lymph nodes are likelyreactive in the setting of chronic liver disease. Abdominal aorta is normalin caliber. Moderate mixed calcified and noncalcified aortoiliacatherosclerotic disease. Esophageal varices present.MSK/Body Wall: No concerning bony lesion identified. Heterogeneousosteopenia. Degenerative changes in the lumbar spine.Peritoneum/Other: No extraluminal air. No extraluminal fluid.IMPRESSION1. No acute abnormality identified in the abdomen or pelvis.2. Cirrhosis with evidence of portal hypertension with esophageal varices.3. Suspected dilated sidebranch of the pancreatic duct within thepancreatic head. Recommend correlation with any prior imaging if availableto establish stability. Further evaluation with nonemergentMRI MRCP forthis possible sidebranch IPMN. Also incidental note of pancreas divisum.4. Questionablenonuniform thickening of the endometrium. May becorrelated for symptoms of vaginal bleeding. Nonemerg ent pelvic ultrasoundmay be considered for further evaluation.[facility] [id number] 17:33:48 Test Item Value Reference Interpretation Comments Range TROPONIN I (test 0.001 ng/mL See_Comment [Automated code = 1577396504) message] The system which generated this result transmitted reference range : <=0.034. The reference range was not used to interpret this result as normal/abnormal . DANIELA (test code = Reference (Normal) DANIELA) Range (defined by the 99th percentile reference limit): <= 0.034 ng/mL Note: Cardiac troponin begins to rise 3-4 hours after the onset of ischemia. Repeat in 4-6 hours if the sample was drawn within 3-4 hours of the onset of the symptom and found normal. Diagnosis of myocardial injury is made with acute changes in cTn concentrations with at least one serial sample above the 99th percentile upper reference limit (URL), taken together with the patient's clinical presentation. Biotin has been reported to cause a negative bias, interpret results relative to patient's use of biotin. Lab Interpretation Normal (test code = 99992-6) [facility] (ALB,T.PRO,BILI T,BU/BC,ALT,AST,ALK PHOS)2021-01-16 17:23:23 Test Item Value Reference Range Interpretation Comments TOTAL BILI (test code = 1174272128) 0.8 mg/dL 0.1-1.1 BILI UNCON (test code = 5826725073) 0.5 mg/dL 0.1-1.1 BILI CONJ (test code = 3528297208) 0.0 mg/dL 0.0-0.3 T PROTEIN (test code = 8704244917) 8.4 g/dL 6.3-8.2 H ALBUMIN (test code = 4862365805) 4.0 g/dL 3.5-5.0 ALK PHOS (test code = 7319229957) 242 U/L 34-122 H ALTv (test code = 1742-6) 58 U/L 5-35 H AST(SGOT) (test code = 6335417131) 63 U/L 13-40 H Lab Interpretation (test code = Abnormal 19869-0) [facility] METABOLIC PANEL (NA, K, CL, CO2, GLUCOSE, BUN, CREATININE, CA)2021-01-16 17:23:08 Test Item Value Reference Range Interpretation Comments NA (test code = 135 mmol/L 135-145 1355782853) K (test code = 3.9 mmol/L 3.5-5.0 3431346228) CL (test code = 106 mmol/L 98-108 1209940102) CO2 TOTAL (test code = 21 mmol/L 23-31 L 3430444170) AGAP (test code = 2-16 0530512492) BUN (test code = 17 mg/dL 7-23 9835246885) GLUCOSE (test code = 327 mg/dL 70-110 H 4361837426) CREATININE (test code = 0.65 mg/dL 0.50-1.04 8025852415) CALCIUM (test code = 9.9 mg/dL 8.6-10.6 4004760973) eGFR (test code = mL/min/1.73m2 5000252986) DANIELA (test code = DANIELA) Association of Glomerular Filtration Rate (GFR) and Staging of Kidney Disease* + --+ --+ ------+| GFR (mL/min/1.73 m2) ?| With Kidney Damage ?| ?Without Kidney Damage+ --------+ --------+ +| ?>90 ?| ?Stage one ?| ? Normal ?+ ---+ ---+ -------+| ?60-89 ?| ?Stage two ?| ? Decreased GFR ? + --+ --+ ------+| ?30-59 ?| ?Stage three ?| ? Stage three ? + --+ --+ ------+| ?15-29 ?| ?Stage four ? | ? Stage four ?+ ---+ ---+ -------+| ?<15 (or dialysis) ? ?| ?Stage five ? | ? Stage five ?+ ---+ ---+ -------+ *Each stage assumes the associated GFR level has been in effect for at least three months. ?Stages 1 to 5, with or without kidney disease, indicate chronic kidney disease. Notes: Determination of stages one and two (with eGFR >59mL/min/1.73 m2) requires estimation of kidney damage for at least three months as defined by structural or functional abnormalities of the kidney, manifested by either:Pathological abnormalities or Markers of kidney damage (including abnormalities in the composition of the blood or urine or abnormalities in imaging tests). Lab Interpretation Abnormal (test code = 20371-7) [facility] 17:23:07 Test Item Value Reference Range Interpretation Comments LIPASE (test code = 0709794975) 75 U/L 0-220 Lab Interpretation (test code = Normal 36148-3) [facility] WITH [id number] 17:06:02 Test Item Value Reference Range Interpretation Comments WBC (test code = See_Comment [Automated 9369-2) message] The sy stem which generated this result transmitted reference range : 4.30 - 11.10 10*3/?L. The reference range was not used to interpret this result as normal/abnormal . RBC (test code = See_Comment [Automated 554-8) message] The sy stem which generated this result transmitted reference range : 3.93 - 5.25 10*6/?L. The reference range was not used to interpret this result as normal/abnormal . HGB (test code = 14.8 g/dL 11.6-15.0 718-7) HCT (test code = 43.0 % 35.7-45.2 4544-3) MCV (test code = 90.7 fL 80.6-95.5 787-2) MCH (test code = 31.2 pg 25.9-32.8 785-6) MCHC (test code = 34.4 g/dL 31.6-35.1 786-4) RDW-SD (test code = 40.4 fL 39.0-49.9 02343-2) RDW-CV (test code = 12.2 % 12.0-15.5 788-0) PLT (test code = See_Comment L [Automated 777-3) message] The sy stem which generated this result transmitted reference range : 166 - 358 10*3/ ?L. The reference r amaya was not used to interpret this result as normal/abnormal . MPV (test code = 10.7 fL 9.5-12.9 83116-3) NRBC/100 WBC (test See_Comment [Automat ed code = 5896804138) message] The system which generated this result transmitted reference range : 0.0 - 10.0 /100 WBCs. The refer ence range was not u sed to interpret th is result as normal/abnormal . NRBC x10^3 (test code <0.01 See_Comment [Auto mated = 4023943242) message] The s ystem which generated this result transmitted reference range : 10*3/?L. The reference range was not used to interpret this result as normal/abnormal . GRAN MAT (NEUT) % 55.2 % (test code = 770-8) IMM GRAN % (test code 0.30 % = 1846533816) LYMPH % (test code = 35.3 % 736-9) MONO % (test code = 7.0 % 5905-5) EOS % (test code = 1.7 % 713-8) BASO % (test code = 0.5 % 706-2) GRAN MAT x10^3(ANC) 5.60 10*3/uL 1.88-7.09 (test code = 1733286600) IMM GRAN x10^3 (test 0.03 10*3/uL 0.00-0.06 code = 1209705088) LYMPH x10^3 (test code 3.58 10*3/uL 1.32-3.29 H = 731-0) MONO x10^3 (test code 0.71 10*3/uL 0.33-0.92 = 742-7) EOS x10^3 (test code = 0.17 10*3/uL 0.03-0.39 711-2) BASO x10^3 (test code 0.05 10*3/uL 0.01-0.07 = 704-7) Lab Interpretation Abnormal (test code = 80700-6) [facility]"
[2021-04-24 05:29] LABS: Absolute Lymphocytes (CBC) 3.4 K/uL (0.7-4.9); Basophils % 0.4 % (0-1.3); Hematocrit 45.1 % (36.0-45.0); Lymphocytes % 36.4 % (15.3-44.8); MPV 8.5 fL (7.6-11.3); RBC Red Blood Cell Count 4.87 M/uL (3.86-4.86)
[2021-04-24 05:31] LABS: Protime INR 1.16
[2021-04-24 05:40] LABS: Albumin 2.7 g/dL (3.4-5.0); Bilirubin Direct 0.2 mg/dL (0-0.2); Bilirubin Total 0.6 mg/dL (0.2-1.0); Potassium 3.7 mmol/L (3.5-5.1); Protein, Total 7.9 g/dL (6.4-8.2)
--- NOTE | 2021-04-24 06:01 | EDPHYS ---
Physician Documentation [facility] Name: Shaye Tristan Age: 81 yrs Sex: Female : 1940 Arrival Date: 04/24/2021 Time: 03:30 Bed 7 Private MD: ED Physician Brendon Hutson HPI: 04/24 04:26 This 81 yrs old Female presents to ER via Unassigned with complaints of ma2 increase sleepness and dizziness . 04:26 The patient presents with decreased mental status. Onset: The symptoms/episode ma2 began/occurred gradually, 1 week(s) ago. Associated signs and symptoms: Pertinent negatives: ataxia, combativeness, diaphoresis, dizziness, headache. The patient has not experienced similar symptoms in the past. Historical: - Allergies: 05:50 metformin (Upset stomach); mr2 - Home Meds: 05:50 Metformin Oral [Active]; mr2 - PMHx: 05:50 Diabetes - NIDDM; mr2 - Immunization history:: Adult Immunizations up to date. - Social history:: Patient/guardian denies using alcohol, street drugs, The patient lives with family, Smoking status: Patient denies any tobacco usage or history of. ROS: 04:26 Constitutional: Negative for fever, chills, and weight loss. ma2 04:26 All other systems are negative. Exam: 04:26 Constitutional: This is a well developed, well nourished patient who is awake, alert, ma2 and in no acute distress. Head/Face: Normocephalic, atraumatic. Eyes: Pupils equal round and reactive to light, extra-ocular motions intact. Lids and lashes normal. Conjunctiva and sclera are non-icteric and not injected. Cornea within normal limits. Periorbital areas with no swelling, redness, or edema. ENT: Nares patent. No nasal discharge, no septal abnormalities noted. Tympanic membranes are normal and external auditory canals are clear. Oropharynx with no redness, swelling, or masses, exudates, or evidence of obstruction, uvula midline. Mucous membranes moist. Neck: Trachea midline, no thyromegaly or masses palpated, and no cervical lymphadenopathy. Supple, full range of motion without nuchal rigidity, or vertebral point tenderness. No Meningismus. Chest/axilla: Normal chest wall appearance and motion. Nontender with no deformity. No lesions are appreciated. Cardiovascular: Regular rate and rhythm with a normal S1 and S2. No gallops, murmurs, or rubs. Normal PMI, no JVD. No pulse deficits. Respiratory: Lungs have equal breath sounds bilaterally, clear to auscultation and percussion. No rales, rhonchi or wheezes noted. No increased work of breathing, no retractions or nasal flaring. Abdomen/GI: Soft, non-tender, with normal bowel sounds. No distension or tympany. No guarding or rebound. No evidence of tenderness throughout. Back: No spinal tenderness. No costovertebral tenderness. Full range of motion. Skin: Warm, dry with normal turgor. Normal color with no rashes, no lesions, and no evidence of cellulitis. MS/ Extremity: Pulses equal, no cyanosis. Neurovascular intact. Full, normal range of motion. Neuro: Awake and alert, GCS 15, oriented to person, place, time, and situation. Cranial nerves II-XII grossly intact. Motor strength 5/5 in all extremities. Sensory grossly intact. Cerebellar exam normal. Normal gait. Vital Signs: 03:15 BP 125 / 78; Pulse 80; Resp 17; Temp 98.5; Pulse Ox 100% on R/A; Weight 68.04 kg; mr2 Height 5 ft. 3 in. (160.02 cm); Pain 4/10; 06:03 BP 122 / 81; Pulse 77; Resp 18; Temp 98.3; Pulse Ox 100% on R/A; mr2 03:15 Body Mass Index 26.57 (68.04 kg, 160.02 cm) 2 MDM: 03:30 Patient medically screened. [facility] 04:26 Differential Diagnosis: hypoglycemia, meningitis, pneumonia, UTI, volume depletion. [facility] 05:59 Data reviewed: vital signs, nurses notes. Counseling: I had a detailed discussion with [facility] the patient and/or guardian regarding: the historical points, exam findings, and any diagnostic results supporting the discharge/admit diagnosis, the presence of at least one elevated blood pressure reading (>120/80) during this emergency department visit, the need for outpatient follow up. Response to treatment: the patient's symptoms have markedly improved after treatment. 04/24 04:04 Order name: Basic Metabolic Panel; Complete Time: 05:44 [facility] 04/24 04:04 Order name: CBC with Diff; Complete Time: 05:38 [facility] 04/24 04:04 Order name: Hepatic Function; Complete Time: 05:44 [facility] 04/24 04:04 Order name: Lipase; Complete Time: 05:44 [facility] 04/24 04:04 Order name: AMMONIA; Complete Time: 05:44 [facility] 04/24 04:04 Order name: PT-INR; Complete Time: 05:38 [facility] 04/24 04:04 Order name: IV Saline Lock; Complete Time: 05:16 [facility] 04/24 04:04 Order name: Labs collected and sent; Complete Time: 05:17 [facility] 04/24 04:04 Order name: Urine Dipstick-Ancillary (obtain specimen) [facility] 04/24 04:04 Order name: CT Head Brain wo Cont ma2 Administered Medications: 06:15 Drug: NS 0.9% 1000 ml Route: IV; Rate: 1 bolus; Site: left antecubital; mr2 Disposition Summary: 04/24/21 06:00 Discharge Ordered Location: Home ma2 Condition: Stable ma2 Diagnosis - Dizziness and giddiness ma2 Followup: ma2 - With: Private Physician - When: Tomorrow - Reason: Recheck today's complaints, Continuance of care Discharge Instructions: - Discharge Summary Sheet ma2 - Dizziness ma2 Forms: - Medication Reconciliation Form ma2 - Thank You Letter ma2 - Antibiotic Education ma2 - Prescription Opioid Use ma2 Signatures: Dispatcher [employer] EDMS Brendon Hutson MD MD ma2 Joseph Judd RN RN mr2
--- NOTE | 2021-04-24 06:01 | ER ---
Nurse's Notes [facility] Name: Shaye Tristan Age: 81 yrs Sex: Female : 1940 Arrival Date: 04/24/2021 Time: 03:30 Bed 7 Private MD: Diagnosis: Dizziness and giddiness Presentation: 04/24 03:15 Chief complaint: Patient states: she believes that she has been having sob w/o any mr2 cause. denies cough, nvd, fever, cp. Coronavirus screen: Vaccine status: Patient reports receiving the 2nd dose of the covid vaccine. Ebola Screen: Patient negative for fever greater than or equal to 101.5 degrees Fahrenheit, and additional compatible Ebola Virus Disease symptoms Patient denies exposure to infectious person. Patient denies travel to an Ebola-affected area in the 21 days before illness onset. Initial Sepsis Screen: Does the patient meet any 2 criteria? No. Patient's initial sepsis screen is negative. Does the patient have a suspected source of infection? No. Patient's initial sepsis screen is negative. Risk Assessment: Do you want to hurt yourself or someone else? Patient reports no desire to harm self or others. Onset of symptoms was April 18, 2021. 03:15 Method Of Arrival: EMS: [facility] mr2 03:15 Acuity: SARAH 3 mr2 Triage Assessment: 03:15 General: Appears in no apparent distress. Behavior is calm, cooperative. Pain: Denies mr2 pain. Historical: - Allergies: 05:50 metformin (Upset stomach); mr2 - Home Meds: 05:50 Metformin Oral [Active]; mr2 - PMHx: 05:50 Diabetes - NIDDM; mr2 - Immunization history:: Adult Immunizations up to date. - Social history:: Patient/guardian denies using alcohol, street drugs, The patient lives with family, Smoking status: Patient denies any tobacco usage or history of. Screenin:30 Abuse screen: Denies threats or abuse. Denies injuries from another. Nutritional mr2 screening: No deficits noted. Tuberculosis screening: No symptoms or risk factors identified. Fall Risk None identified. Assessment: 05:51 Respiratory: No deficits noted. Reports shortness of breath at rest since 04/18/2021. mr2 Vital Signs: 03:15 BP 125 / 78; Pulse 80; Resp 17; Temp 98.5; Pulse Ox 100% on R/A; Weight 68.04 kg; mr2 Height 5 ft. 3 in. (160.02 cm); Pain 4/10; 06:03 BP 122 / 81; Pulse 77; Resp 18; Temp 98.3; Pulse Ox 100% on R/A; mr2 03:15 Body Mass Index 26.57 (68.04 kg, 160.02 cm) mr2 ED Course: 03:15 Inserted saline lock: 18 gauge in left antecubital area, using aseptic technique. mr2 03:15 Arm band placed on. mr2 03:30 Patient arrived in ED. mw2 03:30 Brendon Hutson MD is Attending Physician. ma2 03:30 No provider procedures requiring assistance completed. mr2 03:30 Patient has correct armband on for positive identification. Bed in low position. Side mr2 rails up X2. 03:47 Joseph Judd, RN is Primary Nurse. mr2 04:30 CT Head Brain wo Cont In Process Unspecified. EDMS 05:16 AMMONIA Sent. mr2 05:16 PT-INR Sent. mr2 05:16 COVID-19 SARS RT PCR (Document "Date of Onset" if Symptomatic) Sent. mr2 05:17 Basic Metabolic Panel Sent. mr2 05:17 CBC with Diff Sent. mr2 05:17 Hepatic Function Sent. mr2 05:17 Lipase Sent. mr2 05:50 Triage completed. mr2 05:53 IV discontinued. mr2 Administered Medications: 06:15 Drug: NS 0.9% 1000 ml Route: IV; Rate: 1 bolus; Site: left antecubital; mr2 Outcome: 06:00 Discharge ordered by . ma2 06:10 Discharged to home ambulatory. mr2 06:10 Condition: stable 06:10 Discharge instructions given to patient, Instructed on discharge instructions, follow up and referral plans. 07:27 Patient left the ED. mr2 Signatures: Dispatcher [employer] EDMS Brendon Hutson MD MD de2 Mar Wetzel 2 Joseph Judd, RN RN mr2
[2021-04-24] MEDS ORDERED: NA CHLORIDE 0.9% 1,000 ML ONE (06:08)
[2021-04-24 07:45] VITALS: BP 122/81; TEMP 98.3; O2SAT 100
--- NOTE | 2021-04-24 11:38 | RAD REPORT ---
EXAM DESCRIPTION: CT - Head Brain Wo Cont - 04/24/2021 6:31 am CLINICAL HISTORY: The patient is 81 years old and is Female; CONFUSED TECHNIQUE: Axial computed tomography images of the head/brain without intravenous contrast. Sagitt al and coronal reformatted images were created and reviewed. This CT exam was performed using one o r more of the following dose reduction techniques: automated exposure control, adjustment of the mA and/or kV according to patient size, and/or use of iterative reconstruction technique. COMPARISON: No relevant prior studies available. FINDINGS: Brain: Mild age related periventricular white matter microangiopathic changes. No hemorrhage. Ventricles: Unremarkable. No ventriculomegaly. Bones/joints: Unremarkable. No acute skull fracture. Soft tissues: Unremarkable. Sinuses: Unremarkable as visualized. No acute sinusitis. Mastoid air cells: No significant mastoid fluid. IMPRESSION: No acute intracranial findings. No hemorrhage. Electronically signed by: Sophia Thakur MD 04/24/2021 5:08 AM TRANSACTIONAL [place] Due to temporary technical issues with the PACS/Fluency reporting system, reports are being signed by the in house radiologists without review as a courtesy to insure prompt reporting. The interpreting radiologist is fully responsible for the content of the report.
== END 2021-04-24 07:27 | disposition home or self-care (01) ==
LOC: ER 03:27
DX: R42 Dizziness and giddiness (principal); E11.9 Type 2 diabetes mellitus without complications
CPT/HCPCS: 85025; 80048; 36415; 82140; 85610; 80076; 83690; 70450; 99284; J7030

== ENCOUNTER 2021-10-31 20:04 | Emergency (ER) | payer OTHER ==
--- OUTSIDE RECORDS SUMMARY | 2021-10-31 20:07 | XMS REPORT | Continuity of Care Document ---
:1940 Author Organization [facility] t Address [address] [place], [place] [address]yosvany [address]ines [address] [place] [address] Care Team Providers Name Role Phone Matt Mercado DO Attending Clinician Matt MERCADO Attending Clinician Unavailable Payers Payer Name Policy Type Policy Number Effective Date Expiration Date S ource Problems Condition Condition Condition Status Onset Resolution Last Treating Co mments Source Name Details Category Date Date Treatment Clinician Date No known No known Disease Unive rs active active ity of problems problems [facility] Allergies, Adverse Reactions, Alerts Allergy Allergy Status Severity Reaction(s) Onset Inactive Treating Comm ents Source Name Type Date Date Clinician Onabotul Propensi Active Swelling Univ ers inumtoxi ty to 01-16 ity of na adverse 00:00: [place] reaction 00 [facility] Bessie ONABOTUL DRUG Active Swelling Univer s INUMTOXI INGREDI 01-16 ity of NA 00:00: [place] 00 [facility] Social History Social Habit Start Date Stop Date Quantity Comments Source Exposure to Not sure [facility] SARS-CoV-2 (event) Medica l Bessie Sex Assigned At [birth year] [facility] 00:00:00 00:00:00 [facility] Smoking Status Start Date Stop Date Source Unknown if ever smoked [facility] Medications Ordered Filled Start Stop Current Ordering Indication Dosage Frequency Signature Comments Components Source Medication Medication Date Date Medication? Clinician (SIG) Name Name iopamidol 2020- No [id number] 100mL 100 mL, Univers (ISOVUE 01-16 Intravenou [...] dose, 01/16/21 at 1300, STAT ondansetron Yes [id number] 4mg Take 1 Univers (ZOFRAN 01-16 tablet by ity of ODT) 4 mg 00:00: mouth [place] disintegrat 00 every 8 Medic al ing tablet (eight) Branch hours as needed for Nausea and Vomiting (N/V). Vital Signs Vital Name Observation Time Observation Value Comments Source Systolic blood 2021-01-16 19:00:00 120 [facility] Diastolic blood 2021-01-16 19:00:00 68 mm[Hg] [facility] Heart rate 2021-01-16 19:00:00 69 /min [facility] Respiratory rate 2021-01-16 19:00:00 18 /min [facility] Oxygen saturation in 2021-01-16 19:00:00 98 /min [facility] Arterial blood by [facility] Pulse oximetry Bessie Body temperature 2021-01-16 16:42:00 36.56 [facility] Body height 2021-01-16 16:42:00 160 cm [facility] Body weight 2021-01-16 16:42:00 72.576 kg [facility] BMI 2021-01-16 16:42:00 28.34 kg/m2 [facility] Procedures Procedure Date / Time Performed Performing Clinician [facility] e ASSIGNMENT OF BENEFITS 2021-01-16 19:13:44 Doctor Unassigned, No [facility] Name [facility] URINALYSIS 2021-01-16 19:05:00 Lynda Mercado [facility] CT ABDOMEN PELVIS W 2021-01-16 17:57:09 Lynda Mercado [facility] CONTRAST [facility] LIPASE 2021-01-16 16:55:00 Lynda Mercado [facility] TROPONIN I 2021-01-16 16:55:00 Lynda Mercado [facility] HEPATIC FUNCTION PANEL 2021-01-16 16:55:00 [id number] (ALB,T.PRO,BILI T,BU/BC,ALT,AST,ALK PHOS) BASIC METABOLIC PANEL 2021-01-16 16:55:00 Lynda Mercado [facility] (NA, K, CL, CO2, Medical Branch GLUCOSE, BUN, CREATININE, CA) CBC WITH DIFF 2021-01-16 16:55:00 Lynda Mercado [facility] NOTICE OF PRIVACY 2021-01-16 16:06:11 Doctor Unassigned, No [facility] PRACTICES Name [facility] CONSENT/REFUSAL FOR 2021-01-16 16:02:57 Doctor Unassigned, No [facility] DIAGNOSIS AND Name [facility] TREATMENT Encounters Start End Encounter Admission Attending Care Care Encounter Source Date/Time Date/Time Type Type Clinicians Facility Department ID 2021-01-16 2021-01-16 Emergency Jess [facility] [id number] Univers 12:05:00 14:45:00 Lynda Calderon [id number] [facility] [id number] [facility] [id number] [facility] 084 Branch 2021-01-16 2021-01-16 Emergency X JESS [facility] ERT [id number] Univers 11:02:00 11:02:00 LYNDA graham [facility] Results Test Description Test Time Test Comments Results Result Comments Source URINALYSIS 2021-01-16 19:39:58 Test Item Value Reference Range Interpretation Comme nts APPEARANCE (test code = Clear Clear 6447290348) COLOR (test code = 9146020020) Yellow Yellow PH (test code = 0881022749) 4.8-8.0 SP GRAVITY (test code = 1.003-1.030 H 3518898111) GLU U QUAL (test code = 500 mg/dL Normal A 7150608459) BLOOD (test code = 8312219669) 1+ Negative A KETONES (test code = 7884575201) Negative Negative PROTEIN (test code = 2887-8) Negative Negative UROBILIN (test code = Normal Normal 9629641612) BILIRUBIN (test code = Negative Negative 8641049953) NITRITE (test code = 4659045247) Negative Negative LEUK ANNALISE (test code = Negative Negative 8137653636) RBC/HPF (test code = 1303616773) See_Comment [Automated message] The system which ge nerated this result transmit rodriguez reference range: 0 - 3 HP F. The reference range was not used to interpret th is result as normal/abnormal . WBC/HPF (test code = 4593309011) <1 See_Comment [Automated message] The system which ge nerated this result transmit rodriguez reference range: 0 - 5 HP F. The reference range was not used to interpret th is result as normal/abnormal . BACTERIA (test code = Negative Negative 9680010461) SQ EPITH (test code = HPF 5864454734) Lab Interpretation (test code = Abnormal 98144-6) [facility] [id number] 18:37:59 1. ?No acute abnormality identified in [...] Peritoneum/Other: No extraluminal air. No extraluminal fluid. [facility], Radiant ResultsInft User - 01/16/2021 [...] ent pelvic ultrasoundmay be considered for further evaluation.[facility] [id number] 17:33:48 Test Item Value Reference Interpretation Comments Range TROPONIN I (test 0.001 ng/mL See_Comment [Automated code = 5988994336) message] The system which generated this result [...] biotin. Lab Interpretation Normal (test code = 12436-0) [id number] (ALB,T.PRO,BILI T,BU/BC,ALT,AST,ALK PHOS)2021-01-16 17:23:23 Test Item Value Reference Range Interpretation Comments TOTAL BILI (test code = 2422189894) 0.8 mg/dL 0.1-1.1 BILI UNCON (test code = 2252450855) 0.5 mg/dL 0.1-1.1 BILI CONJ (test code = 9201170952) 0.0 mg/dL 0.0-0.3 T PROTEIN (test code = 2195515229) 8.4 g/dL 6.3-8.2 H ALBUMIN (test code = 5917244637) 4.0 g/dL 3.5-5.0 ALK PHOS (test code = 4047533948) 242 U/L 34-122 H ALTv (test code = 1742-6) 58 U/L 5-35 H AST(SGOT) (test code = 7075281478) 63 U/L 13-40 H Lab Interpretation (test code = Abnormal 62571-5) [facility] METABOLIC PANEL (NA, K, CL, CO2, GLUCOSE, BUN, CREATININE, CA)2021-01-16 17:23:08 Test Item Value Reference Range Interpretation Comments NA (test code = 135 mmol/L 135-145 9445799836) K (test code = 3.9 mmol/L 3.5-5.0 7306076324) CL (test code = 106 mmol/L 98-108 2160441419) CO2 TOTAL (test code = 21 mmol/L 23-31 L 7427201374) AGAP (test code = 2-16 9502443071) BUN (test code = 17 mg/dL 7-23 6576625666) GLUCOSE (test code = 327 mg/dL 70-110 H 8293395385) CREATININE (test code = 0.65 mg/dL 0.50-1.04 7823967769) CALCIUM (test code = 9.9 mg/dL 8.6-10.6 9548509248) eGFR (test code = mL/min/1.73m2 0111243050) DANIELA (test code = DANIELA) Association of [...] tests). Lab Interpretation Abnormal (test code = 94956-2) [facility] 17:23:07 Test Item Value Reference Range Interpretation Comments LIPASE (test code = 0690134422) 75 U/L 0-220 Lab Interpretation (test code = Normal 90650-8) [facility] WITH [id number] 17:06:02 Test Item Value Reference Range Interpretation Comments WBC (test code = See_Comment [Automated 9556-2) message] The sy stem which generated this result transmitted reference range : 4.30 - 11.10 10*3/?L. The reference range was not used to interpret this result as normal/abnormal . RBC (test code = See_Comment [Automated 748-1) message] The sy stem which generated this [...] RDW-SD (test code = 40.4 fL 39.0-49.9 98386-4) RDW-CV (test code = 12.2 % 12.0-15.5 788-0) PLT (test code = See_Comment L [Automated 777-3) message] The sy stem which generated this result transmitted reference range : 166 - 358 10*3/ ?L. The reference r amaya was not used to interpret this result as normal/abnormal . MPV (test code = 10.7 fL 9.5-12.9 77676-4) NRBC/100 WBC (test See_Comment [Automat ed code = 6589806453) message] The system which generated this result transmitted reference range : 0.0 - 10.0 /100 WBCs. The refer ence range was not u sed to interpret th is result as normal/abnormal . NRBC x10^3 (test code <0.01 See_Comment [Auto mated = 0380563715) message] The s ystem which generated this result transmitted reference range : 10*3/?L. The reference range was not used to interpret this result as normal/abnormal . GRAN MAT (NEUT) % 55.2 % (test code = 770-8) IMM GRAN % (test code 0.30 % = 1889514304) LYMPH % (test code = 35.3 % 736-9) MONO % (test code = 7.0 % 5905-5) EOS % (test code = 1.7 % 713-8) BASO % (test code = 0.5 % 706-2) GRAN MAT x10^3(ANC) 5.60 10*3/uL 1.88-7.09 (test code = 7744748817) IMM GRAN x10^3 (test 0.03 10*3/uL 0.00-0.06 code = 0233936496) LYMPH x10^3 (test code 3.58 10*3/uL 1.32-3.29 H = 731-0) MONO x10^3 (test code 0.71 10*3/uL 0.33-0.92 = 742-7) EOS x10^3 (test code = 0.17 10*3/uL 0.03-0.39 711-2) BASO x10^3 (test code 0.05 10*3/uL 0.01-0.07 = 704-7) Lab Interpretation Abnormal (test code = 28732-3) [facility]"
--- NOTE | 2021-10-31 20:53 | ER ---
Nurse's Notes [facility] Name: Shaye Tristan Age: 81 yrs Sex: Female : 1940 Arrival Date: 10/31/2021 Time: 20:06 Bed Waiting Private MD: Diagnosis: ED Course: 10/31 20:06 Patient arrived in ED. bp1 Administered Medications: No medications were administered Outcome: 20:53 Patient left the ED. as6 Signatures: Che Hebert bp1 Tom Bishop, RN RN as6
== END 2021-10-31 20:53 | disposition left against medical advice (07) ==
LOC: ER 20:04
DX: Z02.9 Encounter for administrative examinations, unspecified (principal)

== ENCOUNTER 2021-11-14 18:41 | Emergency (ER) | payer OTHER ==
--- OUTSIDE RECORDS SUMMARY | 2021-11-14 18:44 | XMS REPORT | Continuity of Care Document ---
:1940 Author Organization [facility] Address [address] [place] [address] [address] [place] [address] Care Team Providers Name Role Phone Matt Mercado DO Attending Clinician Matt MERCADO Attending Clinician Unavailable Payers Payer Name Policy Type Policy Number Effective Date Expiration Date S ource Problems Condition Condition Condition Status Onset Resolution Last Treating Co mments Source Name Details Category Date Date Treatment Clinician Date No known No known Disease Unive rs active active ity of problems problems [place] [facility] Allergies, Adverse Reactions, Alerts Allergy Allergy Status Severity Reaction(s) Onset Inactive Treating Comm ents Source Name Type Date Date Clinician Onabotul Propensi Active Swelling Univ ers inumtoxi ty to 01-16 ity of na adverse 00:00: [place] reaction 00 [facility] Branch ONABOTUL DRUG Active Swelling Univer s INUMTOXI INGREDI 01-16 ity of NA 00:00: [place] 00 [facility] Social History Social Habit Start Date Stop Date Quantity Comments Source Exposure to Not sure [facility] SARS-CoV-2 (event) Medica l [place] Sex Assigned At [birth year] [facility] 00:00:00 00:00:00 [facility] Smoking Status Start Date Stop Date Source Unknown if ever smoked [facility] Medications Ordered Filled Start Stop Current Ordering Indication Dosage Frequency Signature Comments Components Source Medication Medication Date Date Medication? Clinician (SIG) Name Name iopamidol 2020- No [id number] 100mL 100 mL, Univers (ISOVUE 01-16 Intravenou ity o f 370-500 mL) 19:00: 17:54 s, ONCE, 1 [place] injection 00 :00 dose, Mon Medic al 100 mL 01/16/21 at Branch 1400, Routine NaCl 0.9% 2020- No 500mL at 999 Univ ers (NS) bolus 01-16 mL/hr, 500 it y of infusion 18:00: 19:00 mL, IV [place] 500 mL 00 :00 Piggyback, Medical ONCE, 1 Branch dose, 01/16/21 at 1300, STAT ondansetron Yes [id number] 4mg Take 1 Univers (ZOFRAN 01-16 tablet by ity of ODT) 4 mg 00:00: mouth [place] disintegrat 00 every 8 Medic al ing tablet (eight) Branch hours as needed for Nausea and Vomiting (N/V). Vital Signs Vital Name Observation Time Observation Value Comments Source Systolic blood 2021-01-16 19:00:00 120 mm[Hg] [facility] Diastolic blood 2021-01-16 19:00:00 68 mm[Hg] [facility] Heart rate 2021-01-16 19:00:00 69 /min [facility] Respiratory rate 2021-01-16 19:00:00 18 /min [facility] Oxygen saturation in 2021-01-16 19:00:00 98 /min [facility] Arterial blood by [facility] Pulse oximetry [place] Body temperature 2021-01-16 16:42:00 36.56 [facility] Body height 2021-01-16 16:42:00 160 cm [facility] Body weight 2021-01-16 16:42:00 72.576 kg [facility] BMI 2021-01-16 16:42:00 28.34 kg/m2 [facility] Procedures Procedure Date / Time Performed Performing Clinician [facility] e ASSIGNMENT OF BENEFITS 2021-01-16 19:13:44 Doctor Unassigned, No [facility] Name [facility] URINALYSIS 2021-01-16 19:05:00 Lynda Mercado [facility] CT ABDOMEN PELVIS W 2021-01-16 17:57:09 Lynda Mercado [facility] CONTRAST [facility] LIPASE 2021-01-16 16:55:00 Lynda Mercado [facility] TROPONIN I 2021-01-16 16:55:00 Lynda Mercado [facility] HEPATIC FUNCTION PANEL 2021-01-16 16:55:00 Lynda Mercado Un [facility] ([id number]) Medical Branch (ALB,T.PRO,BILI T,BU/BC,ALT,AST,ALK PHOS) BASIC METABOLIC PANEL 2021-01-16 16:55:00 Lynda Mercado [facility] (NA, K, CL, CO2, Medical Branch GLUCOSE, BUN, CREATININE, CA) CBC WITH DIFF 2021-01-16 16:55:00 Lynda Mercado [facility] NOTICE OF PRIVACY 2021-01-16 16:06:11 Doctor Unassigned, No [facility] PRACTICES Name [facility] CONSENT/REFUSAL FOR 2021-01-16 16:02:57 Doctor Unassigned, No [facility] DIAGNOSIS AND Name [facility] TREATMENT Encounters Start End Encounter Admission Attending Care Care Encounter Source Date/Time Date/Time Type Type Clinicians Facility Department ID 2021-01-16 2021-01-16 Emergency JANETT Mercado [id number] Univers 12:05:00 14:45:00 Lynda Gutierrez [place] [id number] [id number] [facility] 084 Branch 2021-01-16 2021-01-16 Emergency X JANETT MERCADO ERT [id number] Univers 11:02:00 11:02:00 LYNDA pinzon [facility] Results Test Description Test Time Test Comments Results Result Comments Source URINALYSIS 2021-01-16 19:39:58 Test Item Value Reference Range Interpretation Comme nts APPEARANCE (test code = Clear Clear 8132849823) COLOR (test code = 1619564544) Yellow Yellow PH (test code = 4294979492) 4.8-8.0 SP GRAVITY (test code = 1.003-1.030 H 1166329640) GLU U QUAL (test code = 500 mg/dL Normal A 3734045317) BLOOD (test code = 5114047157) 1+ Negative A KETONES (test code = 2885161522) Negative Negative PROTEIN (test code = 2887-8) Negative Negative UROBILIN (test code = Normal Normal 0159439464) BILIRUBIN (test code = Negative Negative 4485913583) NITRITE (test code = 7911482661) Negative Negative LEUK ANNALISE (test code = Negative Negative 1032204028) RBC/HPF (test code = 6887108035) See_Comment [Automated message] The system which Peela nerated this result transmit rodriguez reference range: 0 - 3 HP F. The reference range was not used to interpret th is result as normal/abnormal . WBC/HPF (test code = 3409483639) <1 See_Comment [Automated message] The system which Peela nerated this result transmit rodriguez reference range: 0 - 5 HP F. The reference range was not used to interpret th is result as normal/abnormal . BACTERIA (test code = Negative Negative 5973050576) SQ EPITH (test code = HPF 5080539177) Lab Interpretation (test code = Abnormal 08839-6) [facility] P[facility] W [id number] 18:37:59 1. ?No acute abnormality identified in [...] Peritoneum/Other: No extraluminal air. No extraluminal fluid. [facility], Radiant ResultsInft User - 01/16/2021 1:39 PM [...] ent pelvic ultrasoundmay be considered for further evaluation.[facility] [id number] 17:33:48 Test Item Value Reference Interpretation Comments Range TROPONIN I (test 0.001 ng/mL See_Comment [Automated code = 8408293847) message] The system which generated this result [...] biotin. Lab Interpretation Normal (test code = 39760-3) [facility] ([address]) (ALB,T.PRO,BILI T,BU/BC,ALT,AST,ALK PHOS)2021-01-16 17:23:23 Test Item Value Reference Range Interpretation Comments TOTAL BILI (test code = 3369444749) 0.8 mg/dL 0.1-1.1 BILI UNCON (test code = 9474395620) 0.5 mg/dL 0.1-1.1 BILI CONJ (test code = 7414503957) 0.0 mg/dL 0.0-0.3 T PROTEIN (test code = 8734458356) 8.4 g/dL 6.3-8.2 H ALBUMIN (test code = 4505836671) 4.0 g/dL 3.5-5.0 ALK PHOS (test code = 9935929677) 242 U/L 34-122 H ALTv (test code = 1742-6) 58 U/L 5-35 H AST(SGOT) (test code = 6387090113) 63 U/L 13-40 H Lab Interpretation (test code = Abnormal 31702-3) [facility] METABOLIC PANEL (NA, K, CL, CO2, GLUCOSE, BUN, CREATININE, CA)2021-01-16 17:23:08 Test Item Value Reference Range Interpretation Comments NA (test code = 135 mmol/L 135-145 8921945170) K (test code = 3.9 mmol/L 3.5-5.0 8951654507) CL (test code = 106 mmol/L 98-108 1488627773) CO2 TOTAL (test code = 21 mmol/L 23-31 L 1526590919) AGAP (test code = 2-16 0812462203) BUN (test code = 17 mg/dL 7-23 7254908988) GLUCOSE (test code = 327 mg/dL 70-110 H 2741771199) CREATININE (test code = 0.65 mg/dL 0.50-1.04 9183738421) CALCIUM (test code = 9.9 mg/dL 8.6-10.6 0247354896) eGFR (test code = mL/min/1.73m2 5640242518) DANIELA (test code = DANIELA) Association of [...] tests). Lab Interpretation Abnormal (test code = 94656-2) [facility]21-[facility] 17:23:07 Test Item Value Reference Range Interpretation Comments LIPASE (test code = 7985147548) 75 U/L 0-220 Lab Interpretation (test code = Normal 38805-7) [facility] WITH [id number] 17:06:02 Test Item Value Reference Range Interpretation Comments WBC (test code = See_Comment [Automated 2759-2) message] The sy stem which generated this result transmitted reference range : 4.30 - 11.10 10*3/?L. The reference range was not used to interpret this result as normal/abnormal . RBC (test code = See_Comment [Automated 457-7) message] The sy stem which generated this [...] RDW-SD (test code = 40.4 fL 39.0-49.9 68416-4) RDW-CV (test code = 12.2 % 12.0-15.5 788-0) PLT (test code = See_Comment L [Automated 777-3) message] The sy stem which generated this result transmitted reference range : 166 - 358 10*3/ ?L. The reference r amaya was not used to interpret this result as normal/abnormal . MPV (test code = 10.7 fL 9.5-12.9 65300-1) NRBC/100 WBC (test See_Comment [Automat ed code = 6311743521) message] The system which generated this result transmitted reference range : 0.0 - 10.0 /100 WBCs. The refer ence range was not u sed to interpret th is result as normal/abnormal . NRBC x10^3 (test code <0.01 See_Comment [Auto mated = 9096785746) message] The s ystem which generated this result transmitted reference range : 10*3/?L. The reference range was not used to interpret this result as normal/abnormal . GRAN MAT (NEUT) % 55.2 % (test code = 770-8) IMM GRAN % (test code 0.30 % = 2969726720) LYMPH % (test code = 35.3 % 736-9) MONO % (test code = 7.0 % 5905-5) EOS % (test code = 1.7 % 713-8) BASO % (test code = 0.5 % 706-2) GRAN MAT x10^3(ANC) 5.60 10*3/uL 1.88-7.09 (test code = 5697600550) IMM GRAN x10^3 (test 0.03 10*3/uL 0.00-0.06 code = 0036208576) LYMPH x10^3 (test code 3.58 10*3/uL 1.32-3.29 H = 731-0) MONO x10^3 (test code 0.71 10*3/uL 0.33-0.92 = 742-7) EOS x10^3 (test code = 0.17 10*3/uL 0.03-0.39 711-2) BASO x10^3 (test code 0.05 10*3/uL 0.01-0.07 = 704-7) Lab Interpretation Abnormal (test code = 04983-1) [facility]"
--- NOTE | 2021-11-14 19:50 | RAD REPORT ---
EXAM DESCRIPTION: RAD - Chest Single View - 11/14/2021 7:35 pm CLINICAL HISTORY: left sided chest pain Chest pain. COMPARISON: Chest Single View dated 06/08/2020; Chest Single View dated 12/27/2019; Chest Single View dated 07/15/2016; CHEST SINGLE VIEW dated 04/04/2012 FINDINGS: Portable technique limits examination quality. The lungs are grossly clear. The heart is normal in size. No displaced fractures. IMPRESSION: No acute intrathoracic process suspected.
[2021-11-14 20:17] LABS: Hematocrit 43.7 % (36.0-45.0); Lymphocytes % 45.7 % (15.3-44.8); MPV 8.2 fL (7.6-11.3); RBC Red Blood Cell Count 4.82 M/uL (3.86-4.86)
[2021-11-14 20:32] LABS: Albumin 2.8 g/dL (3.4-5.0); Bilirubin Direct 0.2 mg/dL (0-0.2); Bilirubin Total 0.6 mg/dL (0.2-1.0); Magnesium 2.2 mg/dL (1.8-2.4); Potassium 3.4 mmol/L (3.5-5.1); Protein, Total 7.6 g/dL (6.4-8.2); Troponin High Sensitivity 4.5 pg/mL (<58.9)
--- NOTE | 2021-11-14 21:58 | RAD REPORT ---
EXAM DESCRIPTION: CT - Chest For Pe Angio - 11/14/2021 9:47 pm CLINICAL HISTORY: Chest pain. left sided chest pain, rib pain COMPARISON: No comparisons TECHNIQUE: CT angiogram of the pulmonary arteries was performed with MIP. All CT scans are performed using dose optimization technique as appropriate and may include automated exposure control or mA/KV adjustment according to patient size. FINDINGS: No evidence of pulmonary thromboembolism. Thoracic aorta is suboptimally contrast opacified for assessment. The lungs are clear. No significant pericardial or pleural fluid. No displaced fractures evident. IMPRESSION: No evidence of pulmonary thromboembolism. No acute lung findings.
--- NOTE | 2021-11-14 21:59 | RAD REPORT ---
EXAM DESCRIPTION: CTAbdomen Pelvis W Contrast - 11/14/2021 9:47 pm CLINICAL HISTORY: Abdominal pain. Abdominal pain, acute, nonlocalized COMPARISON: Abdomen Pelvis W Contrast dated 06/08/2020; Abdomen Pelvis W Contrast dated 0; CT ABD PELVIS W CONTRAST dated 04/04/2012 TECHNIQUE: Biphasic CT imaging of the abdomen and pelvis was performed with 100 ml non-ionic IV cont rast. All CT scans are performed using dose optimization technique as appropriate and may include automated exposure control or mA/KV adjustment according to patient size. FINDINGS: The lung bases are clear. Moderate liver cirrhosis is present. No liver mass or biliary dilatation. The spleen is mildly promin ent in size. The pancreas, adrenal glands and kidneys are within normal limits. No bowel obstruction, free air, free fluid or abscess. The appendix is normal. No evidence of signi ficant lymphadenopathy. Mild lumbar degenerative changes. IMPRESSION: No acute intra-abdominal or pelvic finding. Liver cirrhosis.
--- NOTE | 2021-11-14 22:54 | EDPHYS ---
Physician Documentation [facility] Name: Shaye Tristan Age: 81 yrs Sex: Female : 1940 Arrival Date: 11/14/2021 Time: 18:44 Bed 17 Private MD: ED Physician Karan Domínguez HPI: 11/14 19:11 This 81 yrs old Female presents to ER via Ambulatory with complaints of Rib pain. jmm 19:11 Onset: The symptoms/episode began/occurred gradually, 6 month(s) ago. This is an 81 jmm year old female with a history of dm that presents to the ED with complaints of left sided rib pain and left sided abdominal pain beginning approx 6 weeks ago. Pain has intensified. Denies shortness of breath, fever, vomiting. Patient states having multiple episodes of diarrhea. . Historical: - Allergies: 18:54 metformin (Upset stomach); jb4 - PMHx: 18:54 Diabetes - NIDDM; jb4 - PSHx: 18:54 Cholecystectomy; jb4 - Immunization history:: Adult Immunizations up to date. - Social history:: Smoking status: Patient denies any tobacco usage or history of. ROS: 19:11 Constitutional: Negative for fever, chills, and weight loss, Cardiovascular: Negative jmm for chest pain, palpitations, and edema, Respiratory: Negative for shortness of breath, cough, wheezing, and pleuritic chest pain. 19:11 Abdomen/GI: Positive for abdominal pain. 19:11 All other systems are negative. Exam: 19:11 Constitutional: This is a well developed, well nourished patient who is awake, alert, jmm and in no acute distress. Head/Face: atraumatic. Eyes: EOMI, no conjunctival erythema appreciated ENT: Moist Mucus Membranes Neck: Trachea midline, Supple Chest/axilla: Normal chest wall appearance and motion. Cardiovascular: Regular rate and rhythm. No edema appreciated Respiratory: Normal respirations, no respiratory distress appreciated Abdomen/GI: Non distended, soft Back: Normal ROM Skin: General appearance color normal MS/ Extremity: Moves all extremities, no obvious deformities appreciated, no edema noted to the lower extremities Neuro: Awake and alert Psych: Behavior is normal, Mood is normal, Patient is cooperative and pleasant Vital Signs: 18:53 BP 120 / 83; Pulse 68; Resp 16; Temp 97.4(TE); Pulse Ox 100% on R/A; Weight 63.5 kg jb4 (R); Height 5 ft. 2 in. (157.48 cm) (R); Pain 10/10; 20:31 BP 126 / 74; Pulse 65; Resp 17; Pulse Ox 100% on R/A; lg3 22:32 BP 129 / 79; Pulse 64; Resp 16; Pulse Ox 100% on R/A; lg3 18:53 Body Mass Index 25.61 (63.50 kg, 157.48 cm) jb4 MDM: 19:11 Patient medically screened. [facility] 22:52 Data reviewed: vital signs, nurses notes. Counseling: I had a detailed discussion with pierre the patient and/or guardian regarding: the historical points, exam findings, and any diagnostic results supporting the discharge/admit diagnosis, lab results, radiology results, the need for outpatient follow up, to return to the emergency department if symptoms worsen or persist or if there are any questions or concerns that arise at home. ED course: Patient is alert and non toxic in appearance in the ED. Imaging studies are negative. Patient is advised to follow up with GI and otherwise given strict return precautions. patient understood and agrees with the plan of care. . 11/14 19:17 Order name: Basic Metabolic Panel; Complete Time: 21: [facility] 11/14 19:17 Order name: CBC with Diff; Complete Time: 20: [facility] 11/14 19:17 Order name: LFT's; Complete Time: : [facility] 11/14 19:17 Order name: Magnesium; Complete Time: : [facility] 11/14 19:17 Order name: NT PRO-BNP; Complete Time: 21: [facility] 11/14 19:17 Order name: Troponin HS; Complete Time: 21:28 [facility] 11/14 19:17 Order name: XRAY Chest (1 view); Complete Time: 20:00 [facility] 11/14 19:17 Order name: EKG; Complete Time: 19:18 [facility] 11/14 19:17 Order name: Cardiac monitoring; Complete Time: 20: [facility] 11/14 19:17 Order name: EKG - Nurse/Tech; Complete Time: 20: [facility] 11/14 19:17 Order name: IV Saline Lock; Complete Time: 20: [facility] 11/14 19:18 Order name: CT Chest For PE Angio; Complete Time: 22:03 [facility] 11/14 19:18 Order name: CT Abd/Pelvis - IV Contrast Only; Complete Time: 22:03 [facility] 11/14 22:10 Order name: [place] Screen Profile; Complete Time: 22:43 [facility] 11/14 19:17 Order name: Labs collected and sent; Complete Time: 20:07 [facility] 11/14 19:17 Order name: O2 Per Protocol; Complete Time: 20:11 [facility] 11/14 19:17 Order name: O2 Sat Monitoring; Complete Time: 20:11 [facility] Administered Medications: No medications were administered Disposition Summary: 11/14/21 22:53 Discharge Ordered Location: Home [facility] Condition: Stable [facility] Diagnosis - Other abdominal pain [facility] Followup: [facility] - With: Private Physician - When: 2 - 3 days - Reason: Recheck today's complaints, Continuance of care, Re-evaluation by your physician Discharge Instructions: - Discharge Summary Sheet [facility] - Abdominal Pain, Adult [facility] Forms: - Medication Reconciliation Form [facility] - Thank You Letter [facility] - Antibiotic Education [facility] - Prescription Opioid Use [facility] Addendum: 11/16/2021 00:09 Co-signature as Attending Physician, Karan Domínguez MD. r n Signatures: Dispatcher [employer] Ray Nieves PA PA jmm Nieto, [place], MD MD rn Bryson, James, RN RN jb4
--- NOTE | 2021-11-14 22:54 | ER ---
Nurse[facility] Notes [facility] Name: Shaye Tristan Age: 81 yrs Sex: Female : 1940 Arrival Date: 11/14/2021 Time: 18:44 Bed 17 Private MD: Diagnosis: Other abdominal pain Presentation: 11/14 18:53 Chief complaint: Patient states: I have left sided rib pain that has been there for the jb4 past week. It keeps getting worse with each day. I did not hurt myself in any way so I don't know why it hurts. I have some SOB from time to time for the past few months. Coronavirus screen: At this time, the client does not indicate any symptoms associated with coronavirus-19. Ebola Screen: No symptoms or risks identified at this time. Initial Sepsis Screen: Does the patient meet any 2 criteria? No. Patient's initial sepsis screen is negative. Does the patient have a suspected source of infection? No. Patient's initial sepsis screen is negative. Risk Assessment: Do you want to hurt yourself or someone else? Patient reports no desire to harm self or others. Onset of symptoms was November 14, 2021. Transition of care: patient was not received from another setting of care. 18:53 Method Of Arrival: Ambulatory jb4 18:53 Acuity: SARAH 3 jb4 Historical: - Allergies: 18:54 metformin (Upset stomach); jb4 - PMHx: 18:54 Diabetes - NIDDM; jb4 - PSHx: 18:54 Cholecystectomy; jb4 - Immunization history:: Adult Immunizations up to date. - Social history:: Smoking status: Patient denies any tobacco usage or history of. Screenin:28 Abuse screen: Denies threats or abuse. Denies injuries from another. Nutritional lg3 screening: No deficits noted. Tuberculosis screening: No symptoms or risk factors identified. Fall Risk None identified. Assessment: 20:28 General: Appears in no apparent distress. comfortable, Behavior is calm, cooperative. lg3 Pain: Complains of pain in left sided rib Is intermittent, episodic. Neuro: No deficits noted. Botello Agitation-Sedation Scale (RASS): 0 - Alert and Calm Level of Consciousness is awake, alert, obeys commands, Oriented to person, place, time, situation. Cardiovascular: No deficits noted. Denies chest pain, Capillary refill < 3 seconds Clubbing of nail beds is absent JVD is absent Patient's skin is warm and dry. Respiratory: No deficits noted. Airway is patent Trachea midline Respiratory effort is even, unlabored, Respiratory pattern is regular, symmetrical. GI: Abdomen is round non-distended, Reports diarrhea. : No deficits noted. No signs and/or symptoms were reported regarding the genitourinary system. EENT: No deficits noted. No signs and/or symptoms were reported regarding the EENT system. Derm: No deficits noted. No signs and/or symptoms reported regarding the dermatologic system. Skin is intact, is healthy with good turgor, Skin is dry, Skin temperature is warm. Musculoskeletal: No deficits noted. No signs and/or symptoms reported regarding the musculoskeletal system. Circulation, motion, and sensation intact. Range of motion: intact in all extremities. 22:31 Reassessment: Patient appears in no apparent distress at this time. No changes from lg3 previously documented assessment. Patient and/or family updated on plan of care and expected duration. Pain level reassessed. Patient is alert, oriented x 3, equal unlabored respirations, skin warm/dry/pink. Vital Signs: 18:53 BP 120 / 83; Pulse 68; Resp 16; Temp 97.4(TE); Pulse Ox 100% on R/A; Weight 63.5 kg jb4 (R); Height 5 ft. 2 in. (157.48 cm) (R); Pain 10/10; 20:31 BP 126 / 74; Pulse 65; Resp 17; Pulse Ox 100% on R/A; lg3 22:32 BP 129 / 79; Pulse 64; Resp 16; Pulse Ox 100% on R/A; lg3 18:53 Body Mass Index 25.61 (63.50 kg, 157.48 cm) jb4 ED Course: 18:44 Patient arrived in ED. mr 18:47 Ray Ren PA is PHCP. jmm 18:47 Karan Domínguez MD is Attending Physician. jmm 18:54 Triage completed. jb4 18:54 Arm band placed on right wrist. jb4 19:36 XRAY Chest (1 view) In Process Unspecified. EDMS 19:55 Soniya Lind, VASYL is Primary Nurse. lg3 20:07 Inserted saline lock: 20 gauge in right antecubital area, using aseptic technique. zm Blood collected. 20:07 Basic Metabolic Panel Sent. zm 20:07 CBC with Diff Sent. zm 20:07 LFT's Sent. zm 20:07 Magnesium Sent. zm 20:07 NT PRO-BNP Sent. zm 20:07 Troponin HS Sent. zm 20:17 Basic Metabolic Panel Sent. lg3 20:17 CBC with Diff Sent. lg3 20:17 LFT's Sent. lg3 20:17 Magnesium Sent. lg3 20:17 NT PRO-BNP Sent. lg3 20:18 Troponin HS Sent. lg3 20:28 Patient has correct armband on for positive identification. Placed in gown. Bed in low lg3 position. Call light in reach. Side rails up X2. Client placed on continuous cardiac and pulse oximetry monitoring. NIBP monitoring applied. monitoring analyst on. Door closed. Noise minimized. Warm blanket given. 21:49 CT Chest For PE Angio In Process Unspecified. EDMS 21:49 CT Abd/Pelvis - IV Contrast Only In Process Unspecified. EDMS 22:31 [facility] Screen Profile Sent. lg3 23:31 No provider procedures requiring assistance completed. IV discontinued, intact, lg3 bleeding controlled, No redness/swelling at site. Pressure dressing applied. Administered Medications: No medications were administered Medication: 20:28 VIS not applicable for this client. lg3 Outcome: 22:53 Discharge ordered by . pierre 23:31 Discharged to home ambulatory. lg3 23:31 Condition: stable 23:31 Discharge instructions given to patient, Instructed on discharge instructions, Demonstrated understanding of instructions. 23:40 Patient left the ED. jb4 Signatures: Dispatcher [employer] EDMS Ray Ren PA PA jmm Rivera, Mary mr Bryson, James, RN RN jb4 Soniya Lind, VASYL RN lg3 Jessica Everett
[2021-11-14 23:46] VITALS: TEMP 97.4; O2SAT 100
[2021-11-14 23:49] VITALS: BP 129/79
--- NOTE | 2021-11-15 07:53 | EKG ---
Test Date: 2021-11-14 Test Time: 20:11:43 Desizing Pad Operator: TIFFANY MEASUREMENT RESULTS: Intervals: Rate: 64 NV: 208 QRSD: 84 QT: 422 QTc: 435 Buckley: P: 6 NV: 208 QRS: 51 T: 68 INTERPRETIVE STATEMENTS: Normal sinus rhythm Anterior infarct, age undetermined Abnormal ECG Compared to ECG 12/27/2019 18:35:21 No significant changes Electronically Signed On 11-15-21 07:52:29 CDT by Jerardo Coyne
== END 2021-11-14 23:40 | disposition home or self-care (01) ==
LOC: ER 18:41
DX: R10.9 Unspecified abdominal pain (principal); R07.81 Pleurodynia; E11.9 Type 2 diabetes mellitus without complications; Z88.8 Allergy status to other drugs, medicaments and biological substances
CPT/HCPCS: 93005; 85025; 80048; 36415; 83735; 86308; 80076; 84484; 83880; 71275; 74177; 71045; Q9967

== ENCOUNTER 2023-07-08 09:08 | Inpatient (IN) | payer OTHER ==
--- OUTSIDE RECORDS SUMMARY | 2023-07-08 09:12 | XMS REPORT | Continuity of Care Document ---
Author Name Unknown Address [address] [place] [address] [address] th[address] Address [address] [facility] [address] [place] [address] Care Team Providers Care Type Caster Name Role Phone Lynda David DO Attending Clinician [phone] LYNDA DAVID Attending Clinician Unavailab le Payers Payer Name Policy Type Policy Number Effective Date Expirati on Date Source Problems Condition Name Condition Details Condition Category Status Onset Date Resolution Date Last Treatment Date Treating Clinician Comments Source No known active problems No known active problems Disease [facility] Allergies, Adverse Reactions, Alerts Allergy Name Allergy Type Status Severity Reaction(s) Onset Date Inactive Date Treating Clinician Comments Source Onabotul inumtoxi na Propensi ty to adverse reaction s Active Swelling 01-16 00:00: 00 [facility] ONABOTUL INUMTOXI NA DRUG INGREDI Active Swelling 01-16 00:00: 00 [facility] Social History Social Habit Start Date Stop Date Quantity Comments Source Exposure to SARS-CoV-2 (event) Not sure [facility] Sex Assigned At 1940 00:00:00 1940 00:00:00 [facility] Smoking Status Start Date Stop Date Source Unknown if ever smoked [facility] Medications Ordered Medication Name Filled Medication Name Start Date Stop Date Current Medication? Ordering Clinician Indication Dosage Frequency Signature (SIG) Comments Components Source iopamidol (ISOVUE 370-500 mL) injection 100 mL 01-16 19:00: 00 01-16 17:54 :00 No [id number] 100mL 100 mL, Intravenou s, ONCE, 1 dose, Sat01/16/21 at 1400, Routine [facility] NaCl 0.9% (NS) bolus infusion 500 mL 01-16 18:00: 00 01-16 19:00 :00 No 500mL at 999 mL/hr, 500 mL, IV Piggyback, ONCE, 1 dose, Sat01/16/21 at 1300, STAT [facility] ondansetron (ZOFRAN ODT) 4 mg disintegrat ing tablet 01-16 00:00: 00 Yes [id number] 4mg Take 1 tablet by mouth every 8 (eight) hours as needed for Nausea and Vomiting (N/V). [facility] Vital Signs Vital Name Observation Time Observation Value Comments S ource Systolic blood pressure 2021-01-16 19:00:00 120 mm[Hg] [facility] Diastolic blood pressure 2021-01-16 19:00:00 68 mm[Hg] [facility] Heart rate 2021-01-16 19:00:00 69 /min [facility] Respiratory rate 2021-01-16 19:00:00 18 /min [facility] Oxygen saturation in Arterial blood by Pulse oximetry 2021-01-16 19:00:00 98 /min [facility] Body temperature 2021-01-16 16:42:00 36.56 Claudine [facility] Body height 2021-01-16 16:42:00 160 cm [facility] Body weight 2021-01-16 16:42:00 72.576 kg [facility] BMI 2021-01-16 16:42:00 28.34 kg/m2 [facility] Procedures Procedure Date / Time Performed Performing Clinicia n Source ASSIGNMENT OF BENEFITS 2021-01-16 19:13:44 Docto r Unassigned, [place] [facility] URINALYSIS 2021-01-16 19:05:00 [facility] W CONTRAST 2021-01-16 17:57:09 Lynda David [facility] LIPASE 2021-01-16 16:55:00 [facility] TROPONIN I 2021-01-16 16:55:00 Lynda David Un [facility] HEPATIC FUNCTION PANEL (10163) (ALB,T.PRO,BILI T,BU/BC,ALT,AST,ALK PHOS) 2021-01-16 16:55:00 Lynda David [facility] BASIC METABOLIC PANEL (NA, K, CL, CO2, GLUCOSE, BUN, CREATININE, CA) 2021-01-16 16:55:00 Lynda David [facility] CBC WITH DIFF 2021-01-16 16:55:00 Lynda David U [facility] NOTICE OF PRIVACY PRACTICES 2021-01-16 16:06:11 Doctor Unassigned, [place] [facility] CONSENT/REFUSAL FOR DIAGNOSIS AND TREATMENT 2021-01-16 16:02:57 Doctor Unassigned, [place] [facility] Encounters Start Date/Time End Date/Time Encounter Type Admission Type Attending [facility] Facility Care Department Encounter ID Source 2021-01-16 12:05:00 2021-01-16 14:45:00 Emergency Lynda David [facility] [id number] [facility] 2021-01-16 11:02:00 2021-01-16 11:02:00 Emergency X LYNDA DAVID [facility] ERT [id number] [facility] Results Test Description Test Time Test Comments Results Result Co mments Source [facility] [id number] 18:37:591. ?No acute abnormality identified in the abdomen or pelvis. 2. 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 3. ?Suspected dilated sidebranch of the pancreatic duct within thepancreatic head. Recommend correlation with any prior imaging if availableto establish stability. Further evaluation with nonemergent MRI MRCP forthis possible sidebranch IPMN. Also incidental note of pancreas divisum. 4. ?Questionable nonuniform thickening of the endometrium. May becorrelated for symptoms of vaginal bleeding. Nonemergent pelvic ultrasoundmay be considered for further evaluation. EXAM: CT ABDOMEN PELVIS W CONTRAST HISTORY: 80 year -old woman with abdominal pain, acute, nonlocalized TECHNIQUE: Contrast - IV contrast was given, no oral contrast was given Portal venous phase- abdomen and pelvisReconstructions - coronal and sagittal planes COMPARISON: None FINDINGS:Statements: None. Thoracic: Scattered areas of subpleural interstitial opacities,nonspecific. Hepatobiliary: Cirrhotic hepatic pathology with nodular contour. No focal hepatic lesiondetected on this single phase CT examination. Gallbladder is absent. No biliary dilation. Pancreas: Moderate atrophic changesthroughout the pancreas. Findings ofpancreas divisum. Well-circumscribed described serpiginous hypoattenuatingstructure in the posterior aspect of the pancreatic head (2:47) mayrepresent dilated sidebranch(es) of the pancreatic duct. Spleen: Spleen measures up to 12 cm. Adrenals: No abnormality identified in either adrenal gland. Genitourinary: 2 small well-circumscribed hypoattenuating lesions at theright kidney are too [...] and noncalcified aortoiliacatherosclerotic disease. Esophageal varices present. MSK/Body Wall: No concerning bony lesion identified. Heterogeneousosteopenia. Degenerative changes in the lumbar spine. Peritoneum/Other: No extraluminal air. No extraluminal fluid. [facility], Radiant Results Inft User - 01/16/2021 1:39 PM CDT EXAM: [...] cm. Adrenals: No abnormality identified in either adrenal gland. Genitourinary: 2 small well- circumscribed hypoattenuating lesions [...] Suspected dilated sidebranch of the pancreatic duct withinthepancreatic head. Recommend correlation with any prior imaging if availableto establish stability. Further evaluation with nonemergent MRI MRCP forthis possible sidebranch IPMN. Also incidental note of pancreas divisum.4. Questionable nonuniform thickening of the endometrium. May becorrelated forsymptoms of vaginal bleeding. Nonemergent pelvic ultrasoundmay be considered for further evaluation.[facility] [id number] 17:33:48* Test Item Value Reference Range Interpretation Comments TROPONIN I (test code = 3519898611) 0.001 ng/mL See_Comment [Automated message] The system which generated this result transmitted reference range: <=0.034. The reference range was not used to interpret this result as normal/abnormal. DANIELA (test code = DANIELA) Reference (Normal) Range (defined by the 99th percentile reference [...] to patient's use of biotin. Lab Interpretation (test code = 77022-9) Normal [facility] (28861[facility] (ALB,T.PRO,BILI T,BU/BC,ALT,AST,ALK PHOS)2021-01-16 17:23:23* Test Item Value Reference Range Interpretation Comme nts TOTAL BILI (test code = 1059539992) 0.8 mg/dL 0.1-1.1 BILI UNCON (test code = 1223095177) 0.5 mg/dL 0.1-1.1 BILI CONJ (test code = 5249924039) 0.0 mg/dL 0.0-0.3 T PROTEIN (test code = 2997124451) 8.4 g/dL 6.3-8.2 H ALBUMIN (test code = 0660345573) 4.0 g/dL 3.5-5.0 ALK PHOS (test code = 7876453630) 242 U/L 34-122 H ALTv (test code = 1742-6) 58 U/L 5-35 H AST(SGOT) (test code = 9922413590) 63 U/L 13-40 H Lab Interpretation (test cod e = 20798-6) Abnormal [facility] (NA, K, CL, CO2, GLUCOSE, BUN, CREATININE, CA)2021-01-16 17:23:08* Test Item Value Reference Range Interpretation Comme nts NA (test code = 2468677087) 135 mmol/L 135-145 K (test code = 4040764554) 3.9 mmol/L 3.5-5.0 CL (test code = 7286847159) 106 mmol/L 98-108 CO2 TOTAL (test code = 1565527302) 21 mmol/L 23-31 L AGAP (test code = 7441849066) 2-16 BUN (test code = 2879819756) 17 mg/dL 7-23 GLUCOSE (test code = 2956933312) 327 mg/dL 70-110 H CREATININE (test code = 1415081291) 0.65 mg/dL 0.50-1.04 CALCIUM (test code = 9905925056) 9.9 mg/dL 8.6-10.6 eGFR (test code = 7316016125) mL/min/1.73m2 DANIELA (test code = DANIELA) Association of [...] or abnormalities in imaging tests). Lab Interpretation (test code = 98484-9) Abnormal [facility] 17:23:07* Test Item Value Reference Range Interpretation Comme nts LIPASE (test code = 3691556500) 75 U/L 0-220 Lab Interpretation (test cod e = 84399-3) Normal [facility] WITH [id number] 17:06:02* Test Item Value Reference Range Interpretation Comme nts WBC (test code = 6690-2) See_Comment [Automated messa ge] The system which generated this result transmitted reference range: 4.30 - 11.10 10*3/?L. The reference range was not used to interpret this result as normal/abnormal. RBC (test code = 789-8) See_Comment [Automated messa ge] The system which generated this result transmitted reference range: 3.93 - 5.25 10*6/?L. The reference range was not used to interpret this result as normal/abnormal. HGB (test code = 718-7) 14.8 g/dL 11.6-15.0 HCT (test code = 4544-3) 43.0 % 35.7-45.2 MCV (test code = 787-2) 90.7 fL 80.6-95.5 MCH (test code = 785-6) 31.2 pg 25.9-32.8 MCHC (test code = 786-4) 34.4 g/dL 31.6-35.1 RDW-SD (test code = 69879-5) 40.4 fL 39.0-49.9 RDW-CV (test code = 788-0) 12.2 % 12.0-15.5 PLT (test code = 777-3) See_Comment L [Automated messa ge] The system which generated this result transmitted reference range: 166 - 358 10*3/?L. The reference range was not used to interpret this result as normal/abnormal. MPV (test code = 10734-6) 10.7 fL 9.5-12.9 NRBC/100 WBC (test code = 6498682059) See_Comment [Automated me ssage] The system which generated this result transmitted reference range: 0.0 - 10.0 /100 WBCs. The reference range was not used to interpret this result as normal/abnormal. NRBC x10^3 (test code = 1827013510) <0.01 See_Comment [Automated messa ge] The system which generated this result transmitted reference range: 10*3/?L. The reference range was not used to interpret this result as normal/abnormal. GRAN MAT (NEUT) % (test code = 770-8) 55.2 % IMM GRAN % (test code = 6702503134) 0.30 % LYMPH % (test code = 736-9) 35.3 % MONO % (test code = 5905-5) 7.0 % EOS % (test code = 713-8) 1.7 % BASO % (test code = 706-2) 0.5 % GRAN MAT x10^3(ANC) (test code = 4377027036) 5.60 10*3/uL 1.88-7.09 IMM GRAN x10^3 (test code = 9246311697) 0.03 10*3/uL 0.00-0.06 LYMPH x10^3 (test code = 731-0) 3.58 10*3/uL 1.32-3.29 H MONO x10^3 (test code = 742-7) 0.71 10*3/uL 0.33-0.92 EOS x10^3 (test code = 711-2) 0.17 10*3/uL 0.03-0.39 BASO x10^3 (test code = 704-7) 0.05 10*3/uL 0.01-0.07 Lab Interpretation (test code = 83975-6) Abnormal [facility]"
[2023-07-08 10:12] LABS: Absolute Lymphocytes (CBC) 2.8 K/uL (0.7-4.9); Hematocrit 44.5 % (36.0-45.0); Lymphocytes % 27.5 % (15.3-44.8); MCV 98.6 fL (80-100); MPV 8.5 fL (7.6-11.3); Platelets 117 thou/uL (152-406); RBC Red Blood Cell Count 4.52 M/uL (3.86-4.86)
[2023-07-08 10:32] LABS: Albumin 2.4 g/dL (3.4-5.0); Bilirubin Direct 0.6 mg/dL (0-0.2); Bilirubin Total 1.6 mg/dL (0.2-1.0); Magnesium 1.7 mg/dL (1.6-2.4); Potassium 3.6 mEq/L (3.5-5.1); Protein, Total 7.2 g/dL (6.4-8.2)
--- NOTE | 2023-07-08 10:34 | RAD REPORT ---
EXAM DESCRIPTION: Jason Single View07/08/2023 10:19 am CLINICAL HISTORY: Shortness of breath COMPARISON: 2021 FINDINGS: [id number] bilateral pulmonary opacities. Heart is mildly enlarged. Probable small pleural effusions IMPRESSION: These findings most likely indicate CHF
[2023-07-08 10:35] LABS: Troponin High Sensitivity 4578.8 pg/mL (<58.9)
[2023-07-08] MEDS ORDERED: HEPARIN 5000 UNIT/ML 1 ML VIAL ONE ×2 (10:45→12:47)
[2023-07-08] MEDS ORDERED: NA CHLORIDE 0.9% 100 ML ONE (10:45)
[2023-07-08] MEDS ORDERED: HEPARIN/D5W 25,000 UNIT/500 ML BAG IV ONE (10:45)
[2023-07-08] MEDS ORDERED: ASPIRIN 81 MG CHEWABLE TABLET ONE (10:45)
[2023-07-08] MEDS ORDERED: AMIODARONE HCL 150 MG/3 ML INJ IV ONE (10:45)
[2023-07-08] MEDS ORDERED: AMIODARONE IN DEXTROSE,ISO-OSM 360 MG/200 ML BAG IV ONE ×2 (11:04→17:16)
[2023-07-08 11:18] LABS: Protime INR 1.43
[2023-07-08] MEDS ORDERED: ADENOSINE 6 MG/ 2ML VIAL IV ONE ×2 (11:19→11:30)
[2023-07-08] MEDS ORDERED: FUROSEMIDE 40 MG/4 ML VIAL ONE (11:38)
--- NOTE | 2023-07-08 11:51 | ER ---
Nurse's Notes [facility] Name: Shaye Tristan Age: 83 yrs Sex: Female : 1940 Arrival Date: 07/08/2023 Time: 09:08 Bed 18 Private MD: Diagnosis: Heart failure, unspecified;Subsequent non-ST elevation (NSTEMI) myocardial infarction;Acute respiratory failure Presentation: 07/08 09:44 Chief complaint: Patient states: she has been having difficulty breathing for approx 3 ap3 months. patient's SP02 on room air was 90% on arrival. patient states she does not wear home O2. Coronavirus screen: At this time, the client does not indicate any symptoms associated with coronavirus-19. Ebola Screen: No symptoms or risks identified at this time. Initial Sepsis Screen: Does the patient meet any 2 criteria? RR > 20 per min. HR > 90 bpm. Does the patient have a suspected source of infection? No. Patient's initial sepsis screen is negative. Risk Assessment: Do you want to hurt yourself or someone else? Patient reports no desire to harm self or others. Onset of symptoms is unknown. 09:44 Method Of Arrival: Wheelchair ap3 10:20 Acuity: SARAH 2 ap3 Triage Assessment: 09:46 General: Appears distressed, Behavior is calm, cooperative, appropriate for age. Pain: ap3 Denies pain. Neuro: Level of Consciousness is awake, alert, obeys commands, Oriented to person, place, time, situation, Appropriate for age. Cardiovascular: Patient's skin is warm and dry. Respiratory: Reports shortness of breath at rest Airway is patent Respiratory effort is even, labored, Respiratory pattern is regular, symmetrical, tachypnea Onset: The symptoms/episode began/occurred gradually, the patient has moderate shortness of breath. Historical: - Allergies: 09:46 metformin (Upset stomach); ap3 - PMHx: 09:46 Diabetes - NIDDM; ap3 - PSHx: 09:46 Cholecystectomy; ap3 - Immunization history:: Client reports receiving the 2nd dose of the Covid vaccine, Flu vaccine is up to date. - Social history:: Smoking status: Patient denies any tobacco usage or history of. Screenin:46 Abuse screen: Denies threats or abuse. Nutritional screening: No deficits noted. ap3 Tuberculosis screening: No symptoms or risk factors identified. 11:51 [facility] ED Fall Risk Assessment (Adult) History of falling in the last 3 months, ko1 including since admission No falls in past 3 months (0 pts) Confusion or Disorientation No (0 pts) Intoxicated or Sedated No (0 pts) Impaired Gait No (0 pts) Mobility Assist Device Used No (0 pt) Altered Elimination No (0 pt) Score/Fall Risk Level 0 - 2 = Low Risk Oriented to surroundings, Maintained a safe environment, Educated pt \T\ family on fall prevention, incl call for assistance when getting out of bed, Assessed \T\ reinforced patient's understanding of fall precautions, Provided non-skid footwear, Hourly rounding (assess needs \T\ fall precautionary measures) done, Used ambulatory aids as needed (educated on \T\ assisted with), Used gait belt as appropriate. Assessment: 11:37 Reassessment: patient prepped for adenosine 12mg. patient placed on continues EKG, ap3 crash cart in room, suction set up and provider at bedside. 12mg of adenosine IV administered at 1127. There was no change in patients condition. provider ordered another 12mg adenosine IV. patient remained on continuous EKG. second dose of adenosine administered at 1133, no change in patients condition. 14:27 Cardiovascular: Rhythm is sinus rhythm. ko1 14:27 Respiratory: Airway is patent Respiratory effort is labored, Respiratory pattern is ko1 tachypnea Breath sounds with crackles bilaterally. Breath sounds are diminished bilaterally. Vital Signs: 09:44 BP 103 / 79; Pulse 113; Resp 31; Temp 97.7(O); Pulse Ox 95% on 2 lpm NC; Weight 68.04 ap3 kg; Height 5 ft. 3 in. ; 10:39 BP 127 / 87; Pulse 139; ap3 11:27 BP 107 / 72; Pulse 131; ap3 11:33 BP 99 / 52; Pulse 131; ap3 11:47 BP 121 / 72; Pulse 92; ap3 11:51 BP 99 / 71; Pulse 88; Resp 22; Pulse Ox 97% on CPAP; FiO2 40 %; ko1 12:48 BP 104 / 60; Pulse 86; Resp 18; Pulse Ox 98% on CPAP; FiO2 40 %; ko1 13:09 BP 110 / 77; Pulse 82; Resp 18; Pulse Ox 100% ; ko1 14:26 BP 94 / 67; Pulse 80; Resp 16; Pulse Ox 100% on CPAP; FiO2 40 %; ko1 09:44 Body Mass Index 26.57 (68.04 kg, 160.02 cm) ap3 ED Course: 09:13 Patient arrived in ED. mg5 09:17 Annabelle Parry, RN is Primary Nurse. ko1 09:17 Julio Cisneros DO is Attending Physician. ms3 09:46 Triage completed. ap3 09:47 Arm band placed on right wrist. ap3 09:47 Patient has correct armband on for positive identification. Bed in low position. Call ap3 light in reach. Side rails up X2. Adult w/ patient. gambling monitor on. Pulse ox on. NIBP on. 10:00 Inserted saline lock: 22 gauge in right forearm, using aseptic technique. Blood ko1 collected. 10:05 Basic Metabolic Panel Sent. ko1 10:05 CBC with Diff Sent. ko1 10:05 LFT's Sent. ko1 10:05 Magnesium Sent. ko1 10:05 NT PRO-BNP Sent. ko1 10:05 Troponin HS Sent. ko1 10:21 XRAY Chest (1 view) In Process Unspecified. EDMS 10:38 EKG done, by ED staff, reviewed by Julio Cisneros DO. ap3 10:44 pistol was picked up by [facility] and can be picked up at police station. bd 10:57 Ptt, Activated Sent. ko1 10:57 PT-INR Sent. ko1 11:02 Inserted saline lock: 22 gauge in left forearm, using aseptic technique. Blood ap3 collected. 11:36 CPAP Sent. ko1 11:50 Loki Serrano is Hospitalizing Provider. ms3 12:48 Provided Education on: meds. ko1 12:48 No provider procedures requiring assistance completed. ko1 13:00 Miller cath inserted, using sterile technique, 18 Fr., by ED staff, balloon inflated, to ko1 gravity drainage. 17:22 Patient admitted, IV remains in place. ko1 Administered Medications: 10:52 Drug: amiodarone IVPB 150 mg 100 ml IVPB once over 10 mins; (mix in D5W) Volume: 100 ko1 ml; Route: IVPB; Infused Over: 10 mins; Site: right forearm; 10:52 Drug: Aspirin PO Chewable Tablet 324 mg PO once; 81 mg tablets x 4 Route: PO; ko1 11:08 Drug: Heparin ([place]-Bolus No thrombolytic) - HEParin IVP 60 units/kg IVP once; Max 5000 ko1 units {Co-Signature: [email or web address] (Helena Moreno RN).} Route: IVP; Site: right forearm; 11:10 Drug: amiodarone IVPB 900 mg, D5W IV 500 ml IVPB at 1 mg/min continuous; for 6 hrs, ap3 then change to 0.5 mg/min Route: IVPB; Rate: 1 mg/min; Site: left forearm; 11:11 Drug: Heparin ([place] Drip) 12 units/kg/[place] - ([place] [address] units, D5W IV 500 ml) IV at ko1 calculated rate Per protocol; Max initial rate 1000 units/hr {Co-Signature: [email or web address] (Helena Moreno RN).} Route: IV; Rate: calculated rate; Site: right forearm; 12:47 Follow up: IV Status: Order to discontinue infusion ko1 11:22 Drug: Adenocard IVP 12 mg IVP once; With continuous running 12 lead EKG Route: IVP; ko1 Site: left forearm; 11:30 Drug: Adenocard IVP 12 mg IVP once Route: IVP; Site: left forearm; ko1 11:43 Drug: Furosemide IVP 40 mg IVP once; give over 2 minutes Route: IVP; Site: left femoral;ko1 Medication: 12:48 VIS not applicable for this client. ko1 Outcome: 11:51 Decision to Hospitalize by Provider. ms3 17:22 Admitted to Events Administrative Assistant accompanied by nurse, via stretcher, with oxygen, with chart, ko1 17:22 Condition: stable 17:22 Instructed on the need for admit, 17:22 Patient left the ED. ko1 Signatures: Dispatcher [employer] EDMS Charlene Francisco Amanda, VASYL RN ap3 Julio Cisneros DO DO ms3 Annabelle Parry RN RN ko1 Gricel Arita mg5 Helena Moreno RN ap3 Corrections: (The following items were deleted from the chart) 10:20 09:44 Acuity: SARAH 3 ap3 ap3
--- NOTE | 2023-07-08 11:51 | EDPHYS ---
Physician Documentation [facility] Name: Shaye Tristan Age: 83 yrs Sex: Female : 1940 Arrival Date: 07/08/2023 Time: 09:08 Bed 18 Private MD: ED Physician Julio Cisneros HPI: 07/08 09:33 This 83 yrs old Female presents to ER via Unassigned with complaints of Breathing ms3 Difficulty. 09:33 83-year-old female with past medical history of diabetes mellitus type 2, ms3 hyperlipidemia presents to the emergency department for shortness of breath x 3 months. Patient states that shortness of breath is becoming worse. Patient denies pain. Patient states laying flat makes her symptoms worse. Patient denies alleviating factors. Patient endorses nausea, denies vomiting, decreased appetite, chills, fever.. Historical: - Allergies: 09:46 metformin (Upset stomach); ap3 - PMHx: 09:46 Diabetes - NIDDM; ap3 - PSHx: 09:46 Cholecystectomy; ap3 - Immunization history:: Client reports receiving the 2nd dose of the Covid vaccine, Flu vaccine is up to date. - Social history:: Smoking status: Patient denies any tobacco usage or history of. ROS: 09:33 Constitutional: Negative for fever, and chills. Neck: Negative for injury, pain, and ms3 swelling, Cardiovascular: Negative for chest pain, and palpitations. 09:33 Abdomen/GI: Negative for abdominal pain, nausea, vomiting, diarrhea, and constipation, MS/Extremity: Negative for injury and deformity, Skin: Negative for injury, rash, and discoloration, 09:33 Respiratory: Positive for shortness of breath, 09:33 All other systems are negative, Exam: 09:33 Constitutional: This is a well developed, well nourished patient who is awake, alert, ms3 and in no acute distress. Head/Face: Normocephalic, atraumatic. Chest/axilla: Normal chest wall appearance and motion. Nontender with no deformity. Cardiovascular: Regular rate and rhythm with a normal S1 and S2. No gallops, murmurs, or rubs. Normal PMI, no JVD. No pulse deficits. Abdomen/GI: Soft, non-tender, with normal bowel sounds. No distension or tympany. No guarding or rebound. No evidence of tenderness throughout. Skin: Warm, dry with normal turgor. Normal color with no rashes, no lesions, and no evidence of cellulitis. MS/ Extremity: Pulses equal, no cyanosis. Neurovascular intact. Full, normal range of motion. 09:33 Respiratory: mild respiratory distress is noted, Respirations: normal, Breath sounds: rales, that are moderate, are located in both bases, 11:05 ECG was reviewed by the Attending Physician. ms3 Vital Signs: 09:44 BP 103 / 79; Pulse 113; Resp 31; Temp 97.7(O); Pulse Ox 95% on 2 lpm NC; Weight 68.04 ap3 kg; Height 5 ft. 3 in. ; 10:39 BP 127 / 87; Pulse 139; ap3 11:27 BP 107 / 72; Pulse 131; ap3 11:33 BP 99 / 52; Pulse 131; ap3 11:47 BP 121 / 72; Pulse 92; ap3 11:51 BP 99 / 71; Pulse 88; Resp 22; Pulse Ox 97% on CPAP; FiO2 40 %; ko1 12:48 BP 104 / 60; Pulse 86; Resp 18; Pulse Ox 98% on CPAP; FiO2 40 %; ko1 13:09 BP 110 / 77; Pulse 82; Resp 18; Pulse Ox 100% ; ko1 14:26 BP 94 / 67; Pulse 80; Resp 16; Pulse Ox 100% on CPAP; FiO2 40 %; ko1 09:44 Body Mass Index 26.57 (68.04 kg, 160.02 cm) ap3 MDM: 09:23 Patient medically screened. ms3 09:33 Differential diagnosis: Anemia CHF exacerbation, Myocardial Infarction pneumonia. ms3 10:41 ED course: Discussed case with Dr Galo. Recommends 150 mg Amiodarone, Heparin bolus, ms3 make NPO. EKG showed to Dr Galo. Will plan for cath at 12 pm. 11:12 ED course: Discussed case with Dr Galo and he would like patient to receive 12 mg ms3 Adenosine with continuous running EKG to see underlying rhythm. 11:20 ED course: Dr Galo- give patient 40 mg Lasix. Agrees with Amiodarone ggt. Still would ms3 like adenosine with continuous ekg. 11:36 ED course: Discussed with Dr Galo HR remained 130's despite Adenosine 12 mg x2 given ms3 as boluses. He will come to ER to see patient.. 11:51 Data reviewed: vital signs, nurses notes, lab test result(s), EKG, radiologic studies, ms3 and as a result, I will admit patient. Consideration of Admission/Observation Patient was admitted/placed on observation. Management of patient was discussed with the following: Hospitalist: Dr Serrano. Music Arranger: Dr Galo. I considered the following discharge prescriptions or medication management in the emergency department Medications were administered in the Emergency Department. See MAR. Independent interpretation of the following test(s) in the Emergency Department X-Ray: My interpretation is CXR image reviewed shows bilateral pulmonary edema. Care significantly affected by the following chronic conditions: Diabetes, HLD. Counseling: I had a detailed discussion with the patient and/or guardian regarding the historical points, exam findings, and any diagnostic results supporting the discharge/admit diagnosis, lab results, radiology results, the need for further work-up and treatment in the hospital. ED course: Discussed case with Dr Serrano and he accepts patient. Patient with improvement in her heart rate and respiratory status. 07/08 09:27 Order name: Basic Metabolic Panel; Complete Time: 10:37 ms3 07/08 09:27 Order name: CBC with Diff; Complete Time: 10:37 ms3 07/08 09:27 Order name: LFT's; Complete Time: 10:37 ms3 07/08 09:27 Order name: Magnesium; Complete Time: 10:37 ms3 07/08 09:27 Order name: NT PRO-BNP; Complete Time: 10:37 ms3 07/08 09:27 Order name: Troponin HS; Complete Time: 10:37 ms3 07/08 10:44 Order name: PT-INR; Complete Time: 11:30 ms3 07/08 10:44 Order name: Ptt, Activated; Complete Time: 11:30 ms3 07/08 12:55 Order name: Troponin High Sensitivity EDMS 07/08 12:55 Order name: Troponin High Sensitivity EDMS 07/08 12:55 Order name: Troponin High Sensitivity EDMS 07/08 13:21 Order name: Lipid Profile; Complete Time: 16:54 EDMS 07/08 09:27 Order name: XRAY Chest (1 view); Complete Time: 10:37 ms3 07/08 11:04 Order name: CPAP ms3 07/08 13:06 Order name: Echo with Doppler EDMS 07/08 09:27 Order name: EKG; Complete Time: 09:28 ms3 07/08 12:55 Order name: CONS Physician Consult EDMS 07/08 09:27 Order name: Cardiac monitoring; Complete Time: 09:47 ms3 07/08 09:27 Order name: EKG - Nurse/Tech; Complete Time: 09:47 ms3 07/08 09:27 Order name: IV Saline Lock; Complete Time: 10:05 ms3 07/08 09:27 Order name: Labs collected and sent; Complete Time: 10:05 ms3 07/08 09:27 Order name: O2 Per Protocol; Complete Time: 09:47 ms3 07/08 09:27 Order name: O2 Sat Monitoring; Complete Time: :47 ms3 EC:05 Rate is 140 beats/min. Rhythm is regular. QRS interval is prolonged. Clinical ms3 impression: Wide complex tachycardia. Interpreted by me. Reviewed by me. Administered Medications: 10:52 Drug: amiodarone IVPB 150 mg 100 ml IVPB once over 10 mins; (mix in D5W) Volume: 100 ko1 ml; Route: IVPB; Infused Over: 10 mins; Site: right forearm; 10:52 Drug: Aspirin PO Chewable Tablet 324 mg PO once; 81 mg tablets x 4 Route: PO; ko1 11:08 Drug: Heparin ([place]-Bolus No thrombolytic) - HEParin IVP 60 units/kg IVP once; Max 5000 ko1 units {Co-Signature: ap3 (Helena Moreno RN).} Route: IVP; Site: right forearm; 11:10 Drug: amiodarone IVPB 900 mg, D5W IV 500 ml IVPB at 1 mg/min continuous; for 6 hrs, ap3 then change to 0.5 mg/min Route: IVPB; Rate: 1 mg/min; Site: left forearm; 11:11 Drug: Heparin ([place] Drip) 12 units/kg/[place] - ([place] [address] units, D5W IV 500 ml) IV at ko1 calculated rate Per protocol; Max initial rate 1000 units/hr {Co-Signature: ap3 (Helena Moreno RN).} Route: IV; Rate: calculated rate; Site: right forearm; 12:47 Follow up: IV Status: Order to discontinue infusion ko1 11:22 Drug: Adenocard IVP 12 mg IVP once; With continuous running 12 lead EKG Route: IVP; ko1 Site: left forearm; 11:30 Drug: Adenocard IVP 12 mg IVP once Route: IVP; Site: left forearm; ko1 11:43 Drug: Furosemide IVP 40 mg IVP once; give over 2 minutes Route: IVP; Site: left femoral;ko1 Disposition: 11:51 Critical Care:. ms3 Disposition Summary: 07/08/23 11:51 Hospitalization Ordered Notes: Hospitalization Status: Inpatient Admission ms3 Provider: Loki Serrano ms3 Condition: Stable ms3 Problem: new ms3 Symptoms: have improved ms3 Bed/Room Type: Standard ms3 Location: Telemetry/MedSurg (Inpatient)(07/08/23 17:06) bd Room Assignment: [facility](07/08/23 17:06) bd Diagnosis - Heart failure, unspecified ms3 - Subsequent non-ST elevation (NSTEMI) myocardial infarction ms3 - Acute respiratory failure ms3 Forms: - Medication Reconciliation Form ms3 - SBAR form ms3 - Leadership Thank You Letter ms3 Critical care time excluding procedures: 11:51 Critical care time: Bedside Care: 50 minutes, Consultation: 10 minutes. Total time: 60 ms3 minutes Signatures: Dispatcher [employer] EDMS Charlene Francisco Amanda, RN RN ap3 Julio Cisneros DO DO ms3 Melissa Francisco RN RN kb3 Annabelle Parry RN RN ko1 Helena Moreno RN ap3 Corrections: (The following items were deleted from the chart) 11:03 10:41 ED course: Discussed case with Dr Galo. Recommends 150 mg Amiodarone, Heparin ms3 bolus, make NPO. Will plan for cath at 12 pm. ms3 13:44 11:51 Intensive Care Unit ms3 kb3 13:44 11:51 ms3 kb3 17:06 13:44 [facility] ER HOLD kb3 bd 17:06 13:44 ERHOLD- kb3 bd
[2023-07-08] MEDS ORDERED: FENTANYL CITR 100 MCG/2 ML ONE (12:44)
[2023-07-08] MEDS ORDERED: ATROPINE SULF 1 MG/10 ML SYR IV ONE (12:44)
[2023-07-08] MEDS ORDERED: MIDAZOLAM HCL 2 MG/2 ML INJ ONE (12:44)
[2023-07-08] MEDS ORDERED: HEPA 1000U/500MLS 2,000 UNIT/1,000 ML BAG IV ONE (12:44)
[2023-07-08] MEDS ORDERED: LIDOCAINE 1% 20 ML MDV ONE (12:44)
[2023-07-08] MEDS ORDERED: VERAPAMIL HCL 10 MG/4 ML VIAL IV ONE (12:44)
[2023-07-08] MEDS ORDERED: ASPIRIN 325 MG TAB ONE (12:45)
[2023-07-08] MEDS ORDERED: HEPARIN 10,000 UNIT/10 ML VIAL IV ONE (12:45)
[2023-07-08] MEDS ORDERED: TICAGRELOR 90 MG TABLET PO ONE (12:45)
[2023-07-08] MEDS ORDERED: CLOPIDOGREL 75 MG TABLET ONE (12:45)
--- NOTE | 2023-07-08 13:06 | P.HP ---
Certification for Inpatient Patient admitted to: Inpatient With expected LOS: >2 Midnights Patient will require the following post-hospital care: None Practitioner: I am a practitioner with admitting privileges, knowledge of patient current condition, hospital course, and medical plan of care. Services: Services provided to patient in accordance with Admission requirements found in Title 42 Section 412.3 of the Code of Federal Regulations <Emilie Birmingham - Last Filed: 07/08/23 17:55> Patient History Date of Service: 07/08/23 Reason for admission: SOB, symptomatic arrythmia History of Present Illness: Shaye Tristan is an 83-year-old female with past medical history of diabetes, Hyperlipidemia, and cholecystectomy, who presents to the ED with complaints of shortness of breath that have worsened in the last week but has been in existence for 3 months total. When she arrived to the ED, EKG showed wide- complex QRS, troponin 4778.8, BNP 8776, HR 140. While in the ED, Dr. Galo was consulted recommended 150 mg amiodarone, heparin bolus, 12 mg adenosine x 2, Lasix 40 mg. EKG was normalized. On examination, She was AAOx3, conversant, no chest pain, tolerating the CPAP with satisfactory oxygenation, and a good historian. Her HR was 88 in NSR at that time. Of note, she is visiting from [place] with her grandson. EKG Rate is 140 beats/min. Rhythm is regular. QRS interval is prolonged. Wide complex tachycardia. Initial vital BP 103 / 79; Pulse 113; Resp 31; Temp 97.7(O); Pulse Ox 95% on 2 lpm NC. Laboratory evaluation troponin 4578.8, BNP 8776, T. bili 1.6, direct bili 0.6, indirect bili 1.0, AST 71, serum glucose 220 sodium 136, potassium 3.6, magnesium 1.7, PT/INR 15.6/1.43 Shaye will be admitted to hospitalist service for further evaluation and treatment of NSTEMI, Dr. Galo consulted and will take to the Analog Ic Design Architect today. - Past Medical/Surgical History Diabetic: Yes -: DM- NIDDM -: Cholecystectomy - Social History Alcohol use: No CD- Drugs: No Caffeine use: Yes <Emilie Birmingham - Last Filed: 07/08/23 17:55> Date of Service: 07/08/23 <brianna hinojosa - Last Filed: 07/08/23 18:55> Allergies morphine Allergy (Intermediate, Verified 04/04/12 21:27) ITCHING/NAUSEA/HEADACHE metformin Allergy (Verified 12/27/19 23:04) Nausea/Vomiting Home Medications: Levofloxacin [Levaquin] 500 mg PO DAILY #7 tablet 12/28/19 Review of Systems Respiratory: Shortness of Breath Gastrointestinal: Nausea <Emilie Birmingham - Last Filed: 07/08/23 17:55> Physical Examination - Vital Signs Pulse: 133 - Physical Exam General: Alert, In no apparent distress, Oriented x3 HEENT: Atraumatic, Normocephalic, PERRLA Neck: Supple, 2+ carotid pulse no bruit, JVD not distended Respiratory: Clear to auscultation bilaterally, Normal air movement Cardiovascular: No edema, Normal pulses, Regular rate/rhythm, Normal S1 S2 Capillary refill: <2 Seconds Gastrointestinal: Normal bowel sounds, Soft and benign Musculoskeletal: No clubbing, No swelling, No contractures Integumentary: No rashes, No breakdown, No significant lesion Neurological: Normal speech, Normal strength at 5/5 x4 extr, Normal tone - Studies Laboratory Data (last 24 hrs) 07/08/23 07/08/23 07/08/23 10:55 10:00 10:00 WBC 10.10 Hgb 15.2 H Hct 44.5 Plt Count 117 L PT 15.6 H INR 1.43 APTT 32.9 Sodium 136 Potassium 3.6 BUN 17 Creatinine 1.00 Glucose 212 H Magnesium 1.7 Total Bilirubin 1.6 H AST 71 H ALT 35 Alkaline Phosphatase 113 <Emilie Birmingham - Last Filed: 07/08/23 17:55> - Studies Laboratory Data (last 24 hrs) 07/08/23 07/08/23 07/08/23 10:55 10:00 10:00 WBC 10.10 Hgb 15.2 H Hct 44.5 Plt Count 117 L PT 15.6 H INR 1.43 APTT 32.9 Sodium Potassium BUN Creatinine Glucose Magnesium Total Bilirubin AST ALT Alkaline Phosphatase Triglycerides 147 Cholesterol 146 HDL Cholesterol 35 L Cholesterol/HDL Ratio 4.17 07/08/23 10:00 WBC Hgb Hct Plt Count PT INR APTT Sodium 136 Potassium 3.6 BUN 17 Creatinine 1.00 Glucose 212 H Magnesium 1.7 Total Bilirubin 1.6 H AST 71 H ALT 35 Alkaline Phosphatase 113 Triglycerides Cholesterol HDL Cholesterol Cholesterol/HDL Ratio <brianna hinojosa - Last Filed: 07/08/23 18:55> Assessment and Plan - Plan Assessment and plan NSTEMI SOB 2/[address] Galo consulted, will take to the Analog Ic Design Architect today EKG Rate is 140 beats/min. Rhythm is regular. QRS interval is prolonged. Wide complex tachycardia. troponin 4578.8, BNP 8776 Trend troponins Aspirin and statin daily Lipid panel, TSH/T4 pending Nitroglycerin SL Echo NPO Transaminitis Mildly elevated bilirubin Shaye is aware that she has a "liver problem" AST 71 T. bili 1.6, direct bili 0.6, indirect bili 1.0 Albumin 2.4 Follow up outpatient Diabetes mellitus- NIDDM with hyperglycemia allergic to metformin Accucheck with SI Serum glucose 212 A1C pending DVT ppx- heparin gtt full code Discharge Plan: Home Plan to discharge in: 48 Hours - Advance Directives Does patient have a Living Will: No Does patient have a Durable POA for Healthcare: No Time Spent Managing Pts Care (In Minutes): 50 <Emilie Birmingham - Last Filed: 07/08/23 17:55> - Plan Patient seen and examined with Ms. Birmingham. Acute pulmonary edema New onset CHF NSTEMI SVT with aberrant conduction Acute respiratory failure with hypoxia Plan: Cardiology consulted, Dr. Galo planning cardiac catheterization today. Heparin drip Status post amiodarone and adenosine boluses, patient converted to sinus rhythm. Respiratory status improved, patient transition from BiPAP to oxygen by nasal cannula Echocardiogram ordered. Aspirin. Lipitor, Lasix postcardiac cath. <brianna hinojosa - Last Filed: 07/08/23 18:55>
[2023-07-08] MEDS: INSULIN REGULAR (HUMAN) 100 UNIT/ML SQ SCH (16:30)
[2023-07-08] MEDS ORDERED: NA CHLORIDE 0.9% 500 ML ONE (16:51)
[2023-07-08] MEDS: AMIODARONE HCL 900 MG in Dextrose 5%-Water 482 ML IV SCH (17:00)
[2023-07-08] MEDS ORDERED: FUROSEMIDE 20 MG/ 2ML VIAL ONE (18:41)
[2023-07-08] MEDS: FUROSEMIDE 20 MG/ 2ML VIAL ONE (18:56)
[2023-07-08] MEDS: NA CHLORIDE 0.9% 0 ML ONE (19:08)
[2023-07-08] MEDS ORDERED: NOREPINEPHRINE BITARTRATE/D5W 4 MG/250 ML BAG IV ONE (19:15)
[2023-07-08] MEDS: ATORVASTATIN 40 MG TAB PO SCH (21:33)
[2023-07-08] MEDS: TICAGRELOR 90 MG TABLET PO SCH (21:33)
[2023-07-09] MEDS: FUROSEMIDE 40 MG/4 ML VIAL IV SCH (00:03)
[2023-07-09] MEDS: HEPARIN/D5W 25,000 UNIT/500 ML BAG IV SCH (01:52)
--- NOTE | 2023-07-09 06:49 | ECHO ---
HEIGHT: 5 ft 3 in WEIGHT: 150 lb 0 oz DATE OF STUDY: 07/08/[address]: Jon Torres 2-DIMENSIONAL: YES M.MODE: YES DOPPLER: YES COLOR FLOW: YES TDS: PORTABLE: YES DEFINITY: BUBBLE STUDY: DIAGNOSIS: CHEST PAIN CARDIAC HISTORY: CATHERIZATION: SURGERY: PROSTHETIC VALVE: PACEMAKER: MEASUREMENTS (cm) DIASTOLIC (NORMALS) SYSTOLIC (NORMALS) IVSd 1.0 (0.6-1.2) LA Diam 4.2 (1.9-4.0) LVEF 25-30% LVIDd 5.2 (3.5-5.7) LVIDs 4.4 (2.0-3.5) %FS 15% LVPWd 1.0 (0.6-1.2) Ao Diam 2.5 (2.0-3.7) 2 DIMENSIONAL ASSESSMENT: RIGHT ATRIUM: NORMAL LEFT ATRIUM: ENLARGED RIGHT VENTRICLE: NORMAL LEFT VENTRICLE: DEPRESSED EJECTION FRACTION TRICUSPID VALVE: MILD TRICUSPID REGURGITATION MITRAL VALVE: MODERATE TO SEVERE MITRAL REGURGITATION PULMONIC VALVE: MILD PULMONIC INSUFFICIENCY AORTIC VALVE: NORMAL PERICARDIAL EFFUSION: SMALL AORTIC ROOT: NORMAL LEFT VENTRICULAR WALL MOTION: ANTERIOR/ APICAL AKINESIS DOPPLER/COLOR FLOW: SEE BELOW COMMENTS: 1. SEVERELY DEPRESSED LEFT VENTRICULAR EJECTION FRACTION 25-30% 2. ANTERIOR/ APICAL AKNIESIS 3. LEFT ATRIAL ENLARGEMENT 4. MODERATE TO SEVERE MITRAL REGURGITAION 5. MILD TRICUSPID REGURGITATION TECHNOLOGIST: ELIZA ROY
[2023-07-09] MEDS: NA CHLORIDE 0.9% 250 ML IV ONE (07:51)
[2023-07-09] MEDS: ASPIRIN 81 MG CHEWABLE TABLET PO SCH (07:57)
[2023-07-09] MEDS: AMIODARONE HCL 900 MG in Dextrose 5%-Water 482 ML IV SCH (08:00)
--- NOTE | 2023-07-09 11:52 | P.PN ---
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 New onset-acute systolic CHF Acute hypoxic respiratory failure secondary to above SVT with aberrant conduction Echocardiogram with severely depressed left ventricular ejection fraction 25 to 30% Anterior/apical akinesis Left atrial enlargement Moderate to severe mitral regurgitation Mild tricuspid regurgitation Heart cath 07/08 with 2 stents placed, see cath report for more details Continue IV amiodarone, heparin Started on aspirin, Brilinta Continue gentle diuresis with reduced dose Lasix IV, did have some low blood pressures this morning around 86 systolic Possible need for staged cath at a later date will discuss further with cardiology Continue to wean off oxygen-is a [facility] [place] Transaminitis/mildly elevated bilirubin Likely secondary to acute CHF, monitor daily labs Diabetes mellitus type [id number] with hyperglycemia ACHS Accu-Chek, sliding scale insulin VTE: Heparin drip Code: Full Dispo: 2 to 3 days Time Spent Managing Pts Care (In Minutes): 35
[2023-07-09] MEDS: FUROSEMIDE 20 MG/ 2ML VIAL IV SCH (16:07)
[2023-07-10 01:46] LABS: Hematocrit 41.8 % (36.0-45.0); MCV 97.6 fL (80-100); MPV 8.4 fL (7.6-11.3); Platelets 88 thou/uL (152-406); RBC Red Blood Cell Count 4.29 M/uL (3.86-4.86)
[2023-07-10 02:05] LABS: Albumin 2.1 g/dL (3.4-5.0); Bilirubin Total 1.3 mg/dL (0.2-1.0); Magnesium 1.7 mg/dL (1.6-2.4); Potassium 3.1 mEq/L (3.5-5.1); Protein, Total 6.3 g/dL (6.4-8.2)
[2023-07-10] MEDS: AMIODARONE HCL 200 MG TAB PO SCH (08:26)
--- NOTE | 2023-07-10 08:31 | RAD REPORT ---
EXAM DESCRIPTION: RAD - Chest Single View - 07/10/2023 8:21 am CLINICAL HISTORY: Dyspnea, CHF COMPARISON: Chest Single View dated 07/08/2023; Chest Single View dated 11/14/2021; Chest Single View d ated 06/08/2020; Chest Single View dated 12/27/2019 FINDINGS: Lines: None. Lungs: Slightly improved prominence of the pulmonary interstitium. Pleural: Small moderate left pleural effusion. Possible small right effusion . Cardiac: Similar size and configuration. Mediastinum: Within normal limits. Bones: No acute fractures. Other: None IMPRESSION: Marginal improvement in pulmonary edema.
[2023-07-10] MEDS: POTASSIUM CL SA 10 MEQ TAB PO ONE ×2 (09:25→16:49)
[2023-07-10] MEDS: FUROSEMIDE 20 MG TABLET PO ONE (09:25)
[2023-07-10] MEDS: MAGNESIUM SULFATE 1 gm IVPB 1 GM/100 ML BAG IV ONE (09:26)
[2023-07-10] MEDS: ALBUMIN HUMAN 25% 200 ML IV ONE (10:16)
--- NOTE | 2023-07-10 14:28 | P.PN ---
Date of Service: 07/10/23 Subjective: Breathing has improved Denies chest pain No acute events overnight ROS: 10 point ROS as noted above, otherwise negative Physical exam GEN: Alert, oriented, NAD HEENT: Normal conjunctiva, sclera anicteric CV: Regular rate and rhythm, no edema Pulm: Nonlabored respirations on nasal cannula oxygen ABD: Soft, nontender, nondistended MSK: No joint tenderness Integumentary: No rashes Neuro: Normal speech, normal affect Vitals reviewed Problem List NSTEMI secondary to ACS/CAD New onset-acute systolic CHF Acute hypoxic respiratory failure secondary to above SVT with aberrant conduction Echocardiogram with severely depressed left ventricular ejection fraction 25 to 30% Anterior/apical akinesis Left atrial enlargement Moderate to severe mitral regurgitation Mild tricuspid regurgitation Heart cath 07/08 with 2 stents placed, see cath report for more details Transition to p.o. amiodarone, Eliquis Started on aspirin, Brilinta Continue gentle diuresis with reduced dose Lasix IV Given dose of albumin today Continue to wean off oxygen-is a [facility] patient from [place] Transaminitis/mildly elevated bilirubin Likely secondary to acute CHF, monitor daily labs Diabetes mellitus type 4nam-[id number] with hyperglycemia ACHS Accu-Chek, sliding scale insulin VTE: Heparin drip Code: Full Dispo: 2 to 3 days Time Spent Managing Pts Care (In Minutes): 35
[2023-07-10] MEDS: APIXABAN 5 MG TABLET PO SCH (20:22)
[2023-07-11 05:36] LABS: Hematocrit 39.5 % (36.0-45.0); MCV 97.5 fL (80-100); MPV 8.2 fL (7.6-11.3); Platelets 104 thou/uL (152-406); RBC Red Blood Cell Count 4.05 M/uL (3.86-4.86)
[2023-07-11 05:52] LABS: Albumin 2.3 g/dL (3.4-5.0); Bilirubin Total 2.1 mg/dL (0.2-1.0); Magnesium 1.7 mg/dL (1.6-2.4); Potassium 3.2 mEq/L (3.5-5.1); Protein, Total 6.4 g/dL (6.4-8.2)
[2023-07-11] MEDS: MAGNESIUM SULFATE 1 gm IVPB 1 GM/100 ML BAG IV ONE (06:03)
[2023-07-11] MEDS: POTASSIUM 25 MEQ EFFERV TAB PO ONE (07:49)
[2023-07-11] MEDS: FUROSEMIDE 20 MG TABLET PO ONE (07:57)
--- NOTE | 2023-07-11 09:57 | RAD REPORT ---
EXAM DESCRIPTION: RAD - Chest Single View - 07/11/2023 9:52 am CLINICAL HISTORY: eval effusions / edema COMPARISON: Chest Single View dated 07/10/2023; Chest Single View dated 07/08/2023; Chest Single View dated 11/14/2021; Chest Single View dated 06/08/2020 FINDINGS: Lines: None. Lungs: Pulmonary edema which may have progressed. Pleural: Bilateral pleural effusions have increased in size since yesterday. Both of which are probab ly moderate. Cardiac: Cardiomegaly . Mediastinum: Within normal limits. Bones: No acute fractures. Other: None IMPRESSION: Enlarging pleural effusions which are probably moderate in size and could reflect worsen ing edema.
--- NOTE | 2023-07-11 11:31 | P.PN ---
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 amiodarone, Eliquis Started on aspirin, Brilinta Continue gentle diuresis with reduced dose Lasix IV Continue to wean off oxygen-is a [facility] patient from [place] Still needing 02, still with dyspnea CXR with worsening edema, blood pressure still soft Further discussion with cardiology Transaminitis/mildly elevated bilirubin Likely secondary to acute CHF, monitor daily labs improving Diabetes mellitus type 9ofl-[id number]-[id number] with hyperglycemia ACHS Accu-Chek, sliding scale insulin VTE: Heparin drip Code: Full Dispo: 2 to 3 days Time Spent Managing Pts Care (In Minutes): 35
--- NOTE | 2023-07-11 13:35 | EKG ---
Test Date: 2023-07-09 Test Time: 01:40:00 Certified Phlebotomist: MEASUREMENT RESULTS: Intervals: Rate: 94 OR: 118 QRSD: 122 QT: 396 QTc: 495 [place]: P: OR: 118 QRS: 100 T: -51 INTERPRETIVE STATEMENTS: Normal sinus rhythm Anterolateral infarct, age undetermined Marked ST abnormality, possible inferior subendocardial injury Abnormal ECG Compared to ECG 07/08/2023 12:25:17 ST (T wave) deviation now present Right superior axis no longer present Myocardial infarct finding still present Electronically Signed On 07-11-23 13:24:54 LOAN DOCUMENTATION SPECIALIST by Fabio Galo
--- NOTE | 2023-07-11 13:38 | EKG ---
Test Date: 2023-07-08 Test Time: 12:25:17 Bar Supervisor: ALP MEASUREMENT RESULTS: Intervals: Rate: 84 MA: 176 QRSD: 88 QT: 378 QTc: 446 [place]: P: 40 MA: 176 QRS: 203 T: 3 INTERPRETIVE STATEMENTS: Normal sinus rhythm Right superior axis deviation Low voltage QRS Cannot rule out Anterior infarct, age undetermined Abnormal ECG Compared to ECG 07/08/2023 11:41:49 No significant changes Electronically Signed On 07-11-23 13:25:43 FEEDER TENDER by Fabio Galo
--- NOTE | 2023-07-11 13:38 | EKG ---
Test Date: 2023-07-08 Test Time: 11:41:49 Rental Manager: ALP MEASUREMENT RESULTS: Intervals: Rate: 94 [place]: 164 QRSD: 82 QT: 344 QTc: 430 [place]: P: 46 CA: 164 QRS: 190 T: 3 INTERPRETIVE STATEMENTS: Normal sinus rhythm Right superior axis deviation Low voltage QRS Cannot rule out Anterior infarct, age undetermined Lateral injury pattern ACUTE UT / STEMI Abnormal ECG Compared to ECG 07/08/2023 11:34:35 Right superior axis now present Low QRS voltage now present Myocardial infarct finding still present Electronically Signed On 07-11-23 13:25:50 BILLET CHECKER by Fabio Galo
--- NOTE | 2023-07-11 13:39 | EKG ---
Test Date: 2023-07-08 Test Time: 10:35:10 Historical Manuscripts Curator: ALP MEASUREMENT RESULTS: Intervals: Rate: 138 MS: 160 QRSD: 154 QT: 302 QTc: 457 [place]: P: MS: 160 QRS: 173 T: -23 INTERPRETIVE STATEMENTS: Suspect arm lead reversal, interpretation assumes no reversal Sinus tachycardia with occasional premature ventricular complexes Nonspecific intraventricular block Lateral infarct, age undetermined Inferior infarct, age undetermined Abnormal ECG Compared to ECG 07/08/2023 09:50:31 Ventricular premature complex(es) now present Wide-QRS tachycardia no longer present Myocardial infarct finding still present Electronically Signed On 07-11-23 13:26:05 POINTING MACHINE OPERATOR by Fabio Galo
--- NOTE | 2023-07-11 13:39 | EKG ---
Test Date: 2023-07-08 Test Time: 11:34:35 Zanjero: ALP MEASUREMENT RESULTS: Intervals: Rate: 131 [place]: QRSD: 162 QT: 376 QTc: 555 [place]: P: [place]: QRS: 172 T: -21 INTERPRETIVE STATEMENTS: Suspect arm lead reversal, interpretation assumes no reversal Undetermined rhythm Nonspecific intraventricular block Lateral infarct, age undetermined Inferior infarct, age undetermined Abnormal ECG Compared to ECG 07/08/2023 10:35:10 Sinus tachycardia no longer present Ventricular premature complex(es) no longer present Myocardial infarct finding still present Electronically Signed On 07-11-23 13:25:54 DIRECTOR OF COLLECTIONS by Fabio Galo
--- NOTE | 2023-07-11 13:39 | EKG ---
Test Date: 2023-07-08 Test Time: 09:50:31 Construction Manager: JOSSY MEASUREMENT RESULTS: Intervals: Rate: 140 [place]: QRSD: 152 QT: 362 QTc: 552 [place]: P: [place]: QRS: 154 T: 88 INTERPRETIVE STATEMENTS: Suspect arm lead reversal, interpretation assumes no reversal Wide QRS tachycardia Nonspecific intraventricular block Inferior infarct, age undetermined Abnormal ECG Compared to ECG 11/14/2021 20:11:43 Wide-QRS tachycardia now present Sinus rhythm no longer present Myocardial infarct finding still present Electronically Signed On 07-11-23 13:26:12 MANAGER INTENSIVE CARE by Fabio Galo
[2023-07-11] MEDS: ALBUMIN HUMAN 25% 100 ML IV ONE (14:29)
[2023-07-11] MEDS ORDERED: INSULIN REGULAR (HUMAN) 100 UNIT/ML ONE ×2 (16:47→23:04)
[2023-07-11] MEDS ORDERED: FUROSEMIDE 40 MG/4 ML VIAL ONE (16:48)
[2023-07-11] MEDS: FUROSEMIDE 40 MG/4 ML VIAL IV ONE (16:50)
[2023-07-11] MEDS ORDERED: LORazepam 2 MG/ML VIAL ONE (17:48)
[2023-07-11] MEDS: LORazepam 2 MG/ML VIAL IV ONE (18:00)
--- NOTE | 2023-07-11 18:12 | PN ---
Date of Progress Note: 07/11/2023 Subjective: Seen by bedside. She appears to be more short of breath and orthopneic today. Not able to tolerate Lasix because of borderline low blood pressure. No chest pain. Review of Systems: No chest pain, shortness of breath, or orthopnea. She claims she feels better, but she appears to be more short of breath than usual. No dysuria, polyuria, or urinary urgency. All other systems were reviewed, they were negative. Objective: Vital Signs: Reviewed. Head and Neck: Pupils are equal, reactive to light. Intact eye movements. No cervical lymphadenopa thy. Positive JVD. Lungs: Decreased breathing sounds with crackles in bases. No accessory muscle use or muscle retract ion. Heart: Irregular. No extra sounds. Abdomen: Soft, nontender. Bowel sounds positive. No organomegaly. No masses or hernia. No rigidi ty or rebound. Extremities: No clubbing or cyanosis. Intact pulses. Skin: No rash or nodule. Neurologic: Alert, awake, oriented x3. No acute focal deficits appreciated. Lymph Nodes: No cervical or axillary lymphadenopathy. Investigations: Labs were reviewed. Assessment And Recommendations: 1.Acute qcq-QH-vmiowfeqe myocardial infarction, culprit was the left circumflex, status post PCI. C ontinue with Brilinta and aspirin. 2.Atrial fibrillation, status post conversion to her sinus rhythm and continue amiodarone and Eliqui s. We will continue triple therapy for 1 month and then stop the aspirin. 3.Dyslipidemia. Continue statin. 4.Acute on chronic systolic heart failure exacerbation. Her EF is in the low 30s from an old LAD oc clusion, which was opened during this hospital stay. Continue dual antiplatelet therapy and continue Lasix 40 mg IV q.12 hours and if blood pressure drops, I recommend low-dose Levophed infusion to all ow for diuresis. The patient also could benefit from transfer to higher level of care center for man agement of her severe heart failure, especially if we run into more problems than diuresing her. SR/MODL Voice ID: [id number] Report ID: [id number]
[2023-07-11] MEDS ORDERED: ENSURE HIGH PROTEIN 237 ML CAN PO SCH (21:00)
[2023-07-11] MEDS ORDERED: TICAGRELOR 90 MG TABLET PO ONE (21:32)
[2023-07-11] MEDS ORDERED: AMIODARONE HCL 200 MG TAB ONE (21:32)
[2023-07-11] MEDS: ENSURE HIGH PROTEIN 237 ML CAN PO SCH (21:33)
[2023-07-12 04:50] LABS: Hematocrit 38.4 % (36.0-45.0); MCV 98.2 fL (80-100); Platelets 93 thou/uL (152-406); RBC Red Blood Cell Count 3.91 M/uL (3.86-4.86)
[2023-07-12 05:13] LABS: Albumin 2.5 g/dL (3.4-5.0); Bilirubin Total 1.9 mg/dL (0.2-1.0); Magnesium 1.9 mg/dL (1.6-2.4); Potassium 3.4 mEq/L (3.5-5.1); Protein, Total 6.2 g/dL (6.4-8.2)
[2023-07-12] MEDS ORDERED: TICAGRELOR 90 MG TABLET PO ONE (08:12)
[2023-07-12] MEDS ORDERED: AMIODARONE HCL 200 MG TAB ONE (08:13)
[2023-07-12] MEDS ORDERED: FUROSEMIDE 40 MG/4 ML VIAL ONE ×2 (08:13→15:14)
[2023-07-12] MEDS: POTASSIUM CL SA 10 MEQ TAB PO ONE ×2 (08:17→16:54)
[2023-07-12] MEDS: FUROSEMIDE 40 MG/4 ML VIAL IV SCH (08:18)
[2023-07-12 08:50] LABS: Blood Morphology Comment NOT SEEN (NOT SEEN); Platelet Estimate ADEQ; White Blood Cell Scan OK (OK)
--- NOTE | 2023-07-12 09:39 | P.PN ---
Date of Service: 07/12/23 Subjective: Moved to ICU for closer monitoring/low bp and needing further diuresis Denies chest pain No acute events overnight ROS: 10 point ROS as noted above, otherwise negative Physical exam GEN: Alert, oriented, NAD HEENT: Normal conjunctiva, sclera anicteric CV: Regular rate and rhythm, no edema Pulm: Nonlabored respirations on BiPap ABD: Soft, nontender, nondistended MSK: No joint tenderness Integumentary: No rashes Neuro: Normal speech, normal affect Vitals reviewed Problem List NSTEMI secondary to ACS/CAD New onset-acute systolic CHF Acute hypoxic respiratory failure secondary to above SVT with aberrant conduction Echocardiogram with severely depressed left ventricular ejection fraction 25 to 30% Anterior/apical akinesis Left atrial enlargement Moderate to severe mitral regurgitation Mild tricuspid regurgitation Heart cath 07/08 with 2 stents placed, see cath report for more details Transitioned to p.o. amiodarone, Eliquis Started on aspirin, Brilinta Discussed further with cardiology, will need more aggressive diuresis Lasix increased to 40 mg IV twice daily, monitor in the ICU in case of hypotension and need for vasopressor therapy If there is further difficulty with hypotension/diuresis patient may require transfer to tertiary center for advanced heart failure team Still needing BiPAP intermittently/nasal cannula oxygen CXR with worsening edema, blood pressure still soft Patient will continue Eliquis, Brilinta and aspirin for 1 month After 1 month discontinue aspirin Transaminitis/mildly elevated bilirubin Likely secondary to acute CHF, monitor daily labs improving Diabetes mellitus type 9pty-[id number] with hyperglycemia ACHS Accu-Chek, sliding scale insulin VTE: Oral Eliquis Code: Full Dispo: 2 to 3 days Time Spent Managing Pts Care (In Minutes): 35 <Александр Gonzales - Last Filed: 07/12/23 09:36> Patient seen and examined on rounds this morning. Plan of care discussed with MENTAL HEALTH WORKER Christian. Agree with plan as noted above with the following additions/corrections: Patient with some mild tachypnea and tachycardia on BiPAP. She does feel like she is breathing slightly better than yesterday Transferred to the ICU yesterday due to possibly needing vasopressors. She has had borderline blood pressure on low-dose Lasix and is requiring increased dosing. She is to continue getting Lasix as scheduled if her blood pressure drops we will start Levophed Repeat chest x-ray in the morning Continue current medications <Mukesh Domínguez - Last Filed: 07/12/23 17:14>
[2023-07-12] MEDS ORDERED: INSULIN REGULAR (HUMAN) 100 UNIT/ML ONE ×2 (11:28→16:05)
[2023-07-12] MEDS ORDERED: POTASSIUM CL SA 10 MEQ TAB PO ONE (16:53)
--- NOTE | 2023-07-12 19:47 | PN ---
Date of Progress Note: 07/12/2023 Subjective: Seen at bedside, doing very well clinically. No chest pain, shortness of breath, orthop meche, cough. She is breathing very comfortably on the BiPAP. Review of Systems: Positive for orthopnea and shortness of breath, but with improvement. No chest pain. No nausea, vom iting, diarrhea. All other systems reviewed are negative. Physical Examination: Vital signs: Reviewed. Head and Neck: Pupils are equal, reactive to light. Intact eye movements. No JVD. No cervical lym phadenopathy. Neck: Supple. Thyroid is not enlarged. Lungs: Clear to auscultation with decreased breathing sounds. No accessory muscle use or muscle ret raction. Heart: Regular. No extra sounds. Abdomen: Soft, nontender. Bowel sounds positive. No organomegaly. No masses or hernia. No rigidi ty or rebound. Extremities: No clubbing, cyanosis. Intact pulses. Skin: No rashes. Neurologic: Alert, awake. No gross focal deficits appreciated Investigations: Labs reviewed. Assessment/recommendation: 1.Acute kcm-RD-uxgpxdted myocardial infarction. Culprit was the circ, status post PCI. Continue Br ilinta and aspirin. 2.Atrial fibrillation. She is in sinus. Continue amiodarone and Eliquis. In 1 month, aspirin can be discontinued. 3.An acute on chronic systolic heart failure exacerbation. Continue Lasix for further diuresis and BiPAP on as-needed basis. SR/MODL Voice ID: [id number] Report ID: [id number]
[2023-07-13 05:06] LABS: Hematocrit 39.6 % (36.0-45.0); MPV 8.2 fL (7.6-11.3); Platelets 98 thou/uL (152-406); RBC Red Blood Cell Count 4.04 M/uL (3.86-4.86)
[2023-07-13 05:45] LABS: Albumin 2.4 g/dL (3.4-5.0); Bilirubin Total 2.4 mg/dL (0.2-1.0); Potassium 3.3 mEq/L (3.5-5.1); Protein, Total 6.3 g/dL (6.4-8.2)
[2023-07-13] MEDS: POTASSIUM CL SA 10 MEQ TAB PO ONE ×2 (06:04→13:02)
[2023-07-13] MEDS ORDERED: ASPIRIN 81 MG CHEWABLE TABLET ONE (07:46)
[2023-07-13] MEDS ORDERED: APIXABAN 5 MG TABLET ONE (07:46)
[2023-07-13] MEDS ORDERED: AMIODARONE HCL 200 MG TAB ONE (07:46)
[2023-07-13] MEDS ORDERED: TICAGRELOR 90 MG TABLET PO ONE (07:46)
[2023-07-13] MEDS ORDERED: FUROSEMIDE 40 MG/4 ML VIAL ONE ×2 (07:46→15:49)
[2023-07-13] MEDS: DOCUSATE NA 100 MG CAP PO SCH (08:06)
--- NOTE | 2023-07-13 08:13 | RAD REPORT ---
EXAM DESCRIPTION: RAD - Chest Single View - 07/13/2023 5:54 am CLINICAL HISTORY: eval pulmonary edema after diuresing Chest pain. COMPARISON: Chest Single View dated 07/11/2023; Chest Single View dated 07/10/2023; Chest Single View d ated 07/08/2023; Chest Single View dated 11/14/2021 FINDINGS: Portable technique limits examination quality. Bilateral pulmonary opacities appear mildly progressive since the 07/11/2023 study. The heart remains moderately enlarged. Bilateral pleural effusions are suspected. IMPRESSION: CHF pattern appears mildly progressive relative to 07/11/2023 prior study.
--- NOTE | 2023-07-13 11:00 | P.PN ---
Date of Service: 07/13/23 Subjective: Respiratory status improving Less dyspneic/tachypneic today Increased urine output yesterday/overnight with increased Lasix dose ROS: 10 point ROS as noted above, otherwise negative Physical exam GEN: Alert, oriented, NAD HEENT: Normal conjunctiva, sclera anicteric CV: Regular rate and rhythm, no edema Pulm: Nonlabored respirations on high flow nasal cannula ABD: Soft, nontender, nondistended MSK: No joint tenderness Integumentary: No rashes Neuro: Normal speech, normal affect Vitals reviewed Problem List NSTEMI secondary to ACS/CAD New onset-acute systolic CHF Acute hypoxic respiratory failure secondary to above SVT with aberrant conduction Echocardiogram with severely depressed left ventricular ejection fraction 25 to 30% Anterior/apical akinesis Left atrial enlargement Moderate to severe mitral regurgitation Mild tricuspid regurgitation Heart cath 07/08 with 2 stents placed, see cath report for more details Transitioned to p.o. amiodarone, Eliquis Started on aspirin, Brilinta Patient will continue Eliquis, Brilinta and aspirin for 1 month After 1 month discontinue aspirin Improving with increased dose of IV Lasix, blood pressure soft but not dropping after doses Now with increased urine output, less dyspneic/tachypneic today Tolerating high flow nasal cannula Transaminitis/mildly elevated bilirubin Likely secondary to acute CHF, monitor daily labs improving Diabetes mellitus type [id number] with hyperglycemia ACHS Accu-Chek, sliding scale insulin VTE: Oral Eliquis Code: Full Dispo: 2 to 3 days Time Spent Managing Pts Care (In Minutes): 35 <Александр Gonzales - Last Filed: 07/13/23 10:58> Patient seen and examined on rounds this morning with HORTICULTURAL SPECIALTY [employer] Christian. Agree with plan as noted above with the following additions/corrections: Tolerating increased dose of lasix, without need to start pressors BP borderline feels breathing is improving slowly weight down ~3-4 lbs UOP with 1L more in last 24hrs compared to prior 24hr continue current regimen continue to monitor closely in ICU renal fxn stable for now <Mukesh Domínguez - Last Filed: 07/13/23 15:49>
[2023-07-13] MEDS ORDERED: INSULIN REGULAR (HUMAN) 100 UNIT/ML ONE ×2 (11:25→16:13)
[2023-07-13] MEDS ORDERED: POTASSIUM CL SA 10 MEQ TAB PO ONE (13:00)
[2023-07-13] MEDS ORDERED: DOCUSATE NA 100 MG CAP PO ONE (20:56)
[2023-07-14 05:02] LABS: Hematocrit 41.9 % (36.0-45.0); MCV 98.2 fL (80-100); MPV 8.1 fL (7.6-11.3); Platelets 124 thou/uL (152-406); RBC Red Blood Cell Count 4.26 M/uL (3.86-4.86)
[2023-07-14 05:30] LABS: Albumin 2.6 g/dL (3.4-5.0); Magnesium 1.7 mg/dL (1.6-2.4); Potassium 3.5 mEq/L (3.5-5.1); Protein, Total 6.5 g/dL (6.4-8.2)
[2023-07-14] MEDS ORDERED: POTASSIUM CL SA 10 MEQ TAB PO ONE (07:38)
[2023-07-14] MEDS ORDERED: INSULIN REGULAR (HUMAN) 100 UNIT/ML ONE ×3 (07:39→21:19)
[2023-07-14] MEDS ORDERED: MAGNESIUM SULFATE 1 gm IVPB 1 GM/100 ML BAG IV ONE (07:40)
[2023-07-14] MEDS ORDERED: DOCUSATE NA 100 MG CAP PO ONE ×2 (08:11→20:01)
[2023-07-14] MEDS ORDERED: APIXABAN 5 MG TABLET ONE (08:11)
[2023-07-14] MEDS: MAGNESIUM SULFATE 1 gm IVPB 1 GM/100 ML BAG IV ONE (08:22)
[2023-07-14] MEDS: POTASSIUM CL SA 10 MEQ TAB PO ONE (08:23)
--- NOTE | 2023-07-14 08:41 | P.PN ---
Date of Service: 07/14/23 Subjective: Respiratory status improving Less dyspneic/tachypneic today Increased urine output yesterday/overnight with increased Lasix dose bruising to RO arms, some bleeding from gums noted ROS: 10 point ROS as noted above, otherwise negative Physical exam GEN: Alert, oriented, NAD HEENT: Normal conjunctiva, sclera anicteric CV: Regular rate and rhythm, no edema Pulm: Nonlabored respirations on high flow nasal cannula ABD: Soft, nontender, nondistended MSK: No joint tenderness Integumentary: No rashes Neuro: Normal speech, normal affect Vitals reviewed Problem List NSTEMI secondary to ACS/CAD New onset-acute systolic CHF Acute hypoxic respiratory failure secondary to above SVT with aberrant conduction Echocardiogram with severely depressed left ventricular ejection fraction 25 to 30% Anterior/apical akinesis Left atrial enlargement Moderate to severe mitral regurgitation Mild tricuspid regurgitation Heart cath 07/08 with 2 stents placed, see cath report for more details Transitioned to p.o. amiodarone, Eliquis Started on aspirin, Brilinta Patient will continue Eliquis, Brilinta and aspirin for 1 month After 1 month discontinue aspirin Improving with increased dose of IV Lasix, blood pressure soft but not dropping after doses Increased urine output, less dyspneic/tachypneic today Tolerating high flow nasal cannula Possible downgrade from ICU later today if BPs stable Continue diuresis, wean 02, PT Possible inp rehab or snf at [place] Transaminitis/mildly elevated bilirubin Likely secondary to acute CHF, monitor daily labs improving Diabetes mellitus type [id number]-[id number]-ezgnvswmh with hyperglycemia ACHS Accu-Chek, sliding scale insulin blood sugar in the 200s Will add 10u semglee daily VTE: Oral Eliquis Code: Full Dispo: 2 to 3 days Time Spent Managing Pts Care (In Minutes): 35 <Александр Gonzales - Last Filed: 07/14/23 08:36> Patient seen and examined on rounds this morning with PHYSICS TUTOR Christian. Agree with plan of care as noted above with following additions/corrections: b/l upper extremity ecchymosis on exam, some slight bleeding/blood seen along gums. discussed with Cardiology, will hold eliquis for 1-2 days. currently held for 2/4 evening dose and to resume 2/6 AM not requiring vasopressors so far. tolerating lasix 40mg IV BID. she feels she is improving UOP increasing recheck CXR in AM, if oxygen not able to wean more, may need q8h lasix, which may lead to need for vasopressors <Mukesh Domínguez - Last Filed: 07/14/23 14:50>
[2023-07-14] MEDS ORDERED: INSULIN GLARGINE 100 UNIT/ML SQ ONE (09:10)
[2023-07-14] MEDS: INSULIN GLARGINE 100 UNIT/ML SQ SCH (09:11)
--- NOTE | 2023-07-14 16:01 | RAD REPORT ---
EXAM DESCRIPTION: [facility] Single View07/14/2023 3:28 pm CLINICAL HISTORY: Shortness of breath COMPARISON: July 13, 2023 FINDINGS: Improvement in the right and no significant change in left pulmonary opacities probably pu lmonary edema. There may be bilateral pleural effusions Heart remains enlarged
[2023-07-15 06:13] LABS: Hematocrit 40.7 % (36.0-45.0); MCV 97.8 fL (80-100); MPV 8.2 fL (7.6-11.3); Platelets 108 thou/uL (152-406); RBC Red Blood Cell Count 4.16 M/uL (3.86-4.86)
[2023-07-15 06:35] LABS: Albumin 2.3 g/dL (3.4-5.0); Bilirubin Direct 0.9 mg/dL (0-0.2); Bilirubin Total 2.6 mg/dL (0.2-1.0); Magnesium 1.9 mg/dL (1.6-2.4); Potassium 2.8 mEq/L (3.5-5.1); Protein, Total 6.3 g/dL (6.4-8.2)
--- NOTE | 2023-07-15 08:50 | P.PN ---
Date of Service: 07/15/23 Subjective: Significant improvement in the past couple of days Weaned off of high flow-now tolerating nasal cannula 2 L Much better urine output on increased dose of Lasix-40 mg IV twice daily Blood pressure still soft but not dropping with doses of Lasix Downgraded yesterday-reconsult PT ROS: 10 point ROS as noted above, otherwise negative Physical exam GEN: Alert, oriented, NAD HEENT: Normal conjunctiva, sclera anicteric CV: Regular rate and rhythm, no edema Pulm: Nonlabored respirations on nasal cannula 2 L ABD: Soft, nontender, nondistended MSK: No joint tenderness Integumentary: Bruising noted to bilateral arms Neuro: Normal speech, normal affect Vitals reviewed Problem List NSTEMI secondary to ACS/CAD New onset-acute systolic CHF Acute hypoxic respiratory failure secondary to above New onset afib with RVR/aberrant conduction Echocardiogram with severely depressed left ventricular ejection fraction 25 to 30% Anterior/apical akinesis Left atrial enlargement Moderate to severe mitral regurgitation Mild tricuspid regurgitation Heart cath 07/08 with 2 stents placed to LAD and left circ Transitioned to p.o. amiodarone, Eliquis Started on aspirin, Brilinta Patient will continue Eliquis, Brilinta and aspirin for 1 month After 1 month discontinue aspirin Holding eliquis until 2/6 given bleeding from gums-bruising to arms Improving with increased dose of IV Lasix, blood pressure soft but not dropping after doses Increased urine output-CXR 2/4 significantly improved Consider decreasing lasix/transition to oral 2/6 Continue diuresis, wean 02, PT Possible [place]-plans to drive back to [place] once she is released from hospital/Inp rehab/SNF Transaminitis/mildly elevated bilirubin Likely secondary to acute CHF, monitor daily labs Tbili elevated, likely 2/2 heart failure, monitor daily Diabetes mellitus type 4ibc-gmbnqnk-qkjwvmpzy with hyperglycemia ACHS Accu-Chek, sliding scale insulin blood sugar in the 200s Added 10u semglee daily 2/4 for better control VTE: Oral Eliquis, asa, brillinta Code: Full Dispo: 2 to 3 days Time Spent Managing Pts Care (In Minutes): 35
[2023-07-15] MEDS ORDERED: INSULIN GLARGINE 100 UNIT/ML SQ ONE (08:52)
[2023-07-15] MEDS ORDERED: DOCUSATE NA 100 MG CAP PO ONE ×2 (08:52→20:49)
--- NOTE | 2023-07-15 17:35 | PN ---
Date of Progress Note: 07/15/2023 Subjective: Seen at bedside, improving slowly. Review of Systems: No chest pain, shortness of breath, orthopnea, cough. No nausea, vomiting, diarrhea. All other syst ems reviewed are negative. Physical Examination: Vital signs: Reviewed. Head and Neck: Pupils are equal, reactive to light. Intact eye movements. No JVD. No cervical lym phadenopathy. Neck: Supple. Thyroid is not enlarged. Lungs: Clear to auscultation bilaterally. No rhonchi, rales, or crackles. No accessory muscle use. Heart: Irregular. No extra sounds. Abdomen: Soft, nontender. Bowel sounds positive. No organomegaly. No masses or hernia. No rigidi ty or rebound. Extremities: No edema, clubbing, cyanosis. Intact pulses. Skin: No rashes. Neurologic: Alert, awake, oriented x3. No acute focal deficits appreciated. Investigations: Labs reviewed. Assessment/recommendation: 1.Acute yvz-DJ-fdyukvyqn myocardial infarction, status post PCI of the left circumflex and HELP DESK MANAGER of th e LAD was open. Continue aspirin and Brilinta. 2.Atrial fibrillation. Now she is in sinus. Continue amiodarone and may cut down the Eliquis dose to 2.5 mg twice a day and plan to stop the aspirin 1 month and resume full dose of the Eliquis. 3.Dyslipidemia. Continue Lipitor 40 mg at bedtime. SR/MODL Voice ID: [id number] Report ID: [id number]
[2023-07-15] MEDS ORDERED: INSULIN REGULAR (HUMAN) 100 UNIT/ML ONE (20:28)
[2023-07-16 05:17] LABS: Hematocrit 41.5 % (36.0-45.0); MCV 97.4 fL (80-100); MPV 8.1 fL (7.6-11.3); Platelets 104 thou/uL (152-406); RBC Red Blood Cell Count 4.26 M/uL (3.86-4.86)
[2023-07-16 05:35] LABS: Albumin 2.2 g/dL (3.4-5.0); Bilirubin Total 2.4 mg/dL (0.2-1.0); Potassium 2.7 mEq/L (3.5-5.1); Protein, Total 6.2 g/dL (6.4-8.2)
[2023-07-16] MEDS: POTASSIUM CL SA 10 MEQ TAB PO ONE (07:17)
[2023-07-16] MEDS: KCL 20 MEQ/100 mL IVPB 20 MEQ/100 ML BAG IV SCH (07:18)
[2023-07-16] MEDS ORDERED: APIXABAN 5 MG TABLET ONE (08:00)
[2023-07-16] MEDS ORDERED: DOCUSATE NA 100 MG CAP PO ONE ×2 (08:01→21:06)
--- NOTE | 2023-07-16 08:16 | P.PN ---
Date of Service: 07/16/23 Subjective Awake alert and oriented this morning Reports feeling better On high flow nasal cannula Will move to regular room today ROS 10 point ROS as noted above, otherwise negative Physical exam GEN: AAO x3, conversant, NAD HEENT: Normal conjunctiva, sclera anicteric CV: Regular rate and rhythm, no edema Pulm: Nonlabored respirations on HFNC 2 L ABD: Soft on palpation, NT/ND MSK: No joint tenderness Integumentary: Bruising noted to bilateral arms, no external bleeding Neuro: Normal speech, normal affect Vitals Reviewed Problem List NSTEMI secondary to ACS/CAD New onset-acute systolic CHF Acute hypoxic respiratory failure secondary to above New onset afib with RVR/aberrant conduction Echocardiogram with severely depressed left ventricular ejection fraction 25 to 30% Anterior/apical akinesis Left atrial enlargement Moderate to severe mitral regurgitation Mild tricuspid regurgitation Heart cath 07/08 with 2 stents placed to LAD and left circ Transitioned to p.o. amiodarone (07/16) continue on aspirin, Brilinta, PO eliquis 2.5 BID Patient will continue Eliquis, Brilinta and aspirin for 1 month After 1 month discontinue aspirin Improving with increased dose of IV Lasix, blood pressure soft but not dropping after doses Increased urine output-CXR 07/14 significantly improved Consider decreasing lasix/transition to oral 07/16 Continue diuresis, wean 02, PT Possible inp rehab or snf at [facility]-plans to drive back to [place] once she is released from hospital/Inp rehab/SNF Transaminitis/mildly elevated bilirubin Likely secondary to acute CHF, monitor daily labs Tbili elevated, likely 2/2 heart failure, monitor daily Diabetes mellitus type 8czd-[id number]-vawxbjcdi with hyperglycemia ACHS Accu-Chek, sliding scale insulin blood sugar in the 200s [id number] semglee daily 2/4 for better control VTE: Oral Eliquis, asa, brillinta Code: Full Dispo: 2 to 3 days
[2023-07-16] MEDS ORDERED: NA CHLORIDE 0.9% 250 ML ONE (10:14)
[2023-07-16] MEDS: NA CHLORIDE 0.9% 250 ML IV SCH (10:18)
[2023-07-16] MEDS ORDERED: NA CHLORIDE 0.9% 250 ML IV SCH (11:00)
[2023-07-16] MEDS ORDERED: INSULIN REGULAR (HUMAN) 100 UNIT/ML ONE ×2 (11:34→21:09)
[2023-07-16] MEDS: FUROSEMIDE 40 MG TABLET PO SCH (16:54)
[2023-07-16] MEDS: APIXABAN 2.5 MG TABLET PO SCH (21:13)
--- NOTE | 2023-07-16 22:30 | PN ---
Date of Progress Note: 07/16/2023 Subjective: Seen at bedside, doing clinically much better. She is resting. No significant shortnes s of breath. Review of Systems: No chest pain, shortness of breath, orthopnea, cough, nausea, vomiting, or diarrhea. All other syste ms reviewed are negative. Physical Examination: Vital Signs: Reviewed. Head and Neck: Pupils are equal, reactive to light. Intact eye movements. No JVD. No cervical lym phadenopathy. Neck is supple. Thyroid is not enlarged. Lungs: Clear to auscultation bilaterally. No rhonchi, rales, or crackles. No accessory muscle use. Heart: Regular. No extra sounds. Abdomen: Soft, nontender. Bowel sounds positive. No organomegaly. No masses or hernia. No rigidi ty or rebound. Extremities: No clubbing or cyanosis. No edema. Neurologic: Alert, awake, oriented x3. No gross focal deficits appreciated. Investigations: Labs reviewed. Assessment/recommendation: 1.Acute on chronic systolic heart failure exacerbation. Significant improvement. She is not requir ing BiPAP anymore. Continue Lasix by mouth. Monitor BUN, creatinine, and electrolytes. She might n eed to drop the dose of Lasix. 2.Atrial fibrillation. She is in sinus. Continue amiodarone and Eliquis. 3.Jfx-HF-fvlfmobut myocardial infarction, status post percutaneous coronary intervention of the left circumflex and the left anterior descending. Continue Brilinta and aspirin. Plan to repeat heart catheterization on her in the near future to optimize the revascularization of the left anterior desc ending. SR/MODL Voice ID: [id number] Report ID: [id number]
[2023-07-17 04:43] LABS: Hematocrit 41.2 % (36.0-45.0); MCV 97.9 fL (80-100); MPV 8.2 fL (7.6-11.3); Platelets 113 thou/uL (152-406); RBC Red Blood Cell Count 4.21 M/uL (3.86-4.86)
[2023-07-17 04:59] LABS: Albumin 2.2 g/dL (3.4-5.0); Bilirubin Total 2.4 mg/dL (0.2-1.0); Potassium 2.8 mEq/L (3.5-5.1); Protein, Total 6.4 g/dL (6.4-8.2)
--- NOTE | 2023-07-17 07:43 | P.PN ---
Date of Service: 07/17/23 Subjective Awake and alert this morning, She is feeling well. No new complaints. Ambulated 500ft ROS 10 point ROS as noted above, otherwise negative Physical exam GEN: AAO x3, conversant, NAD HEENT: Normal conjunctiva, sclera anicteric CV: RRR, NSR, no edema Pulm: Nonlabored respirations on NC 1 L ABD: Soft on palpation, NT/ND MSK: No joint tenderness, weight bearing Integumentary: Bruising noted to bilateral arms, no external bleeding Neuro: Normal speech, normal affect, good balance Vitals Reviewed Problem List NSTEMI secondary to ACS/CAD New onset-acute systolic CHF Acute hypoxic respiratory failure secondary to above New onset afib with RVR/aberrant conduction Echocardiogram with severely depressed left ventricular ejection fraction 25 to 30% Anterior/apical akinesis Left atrial enlargement Moderate to severe mitral regurgitation Mild tricuspid regurgitation Heart cath 07/08 with 2 stents placed to LAD and left circ Transitioned to p.o. amiodarone (07/16)- stable continue on aspirin, Brilinta, PO eliquis 2.5 BID Patient will continue Eliquis, Brilinta and aspirin for 1 month After 1 month discontinue aspirin Continue with increased dose of IV Lasix, blood pressure soft but not dropping after doses Increased urine output-CXR 07/14 significantly improved Will need repeat heart catheterization in the near future for optimized revascularization of the LAD- per Dr. Galo's note Hypokalemia K 2.8 potassium added to NS infusion monitor in AM labs Transaminitis/mildly elevated bilirubin Likely secondary to acute CHF, monitor daily labs Tbili 2.4, likely 2/2 heart failure, monitoring daily, stable Diabetes mellitus type 3dnm-lxwordg-qygleogmv with hyperglycemia ACHS Accu-Chek, sliding scale insulin increased to moderate blood sugar in the 200s Added 10u semglee daily 2/, serum glucose 119, improving VTE: Oral Eliquis, asa, brillinta Code: Full Dispo: 2 to 3 days-Possible inp rehab or snf at [facility]-plans to drive back to [place] once she is released from hospital/Inp rehab/SNF
[2023-07-17 07:52] LABS: Phosphorus 2.9 mg/dL (2.5-4.9)
[2023-07-17] MEDS ORDERED: INSULIN GLARGINE 100 UNIT/ML SQ ONE (08:54)
[2023-07-17] MEDS ORDERED: DOCUSATE NA 100 MG CAP PO ONE (08:58)
[2023-07-17] MEDS ORDERED: NA CHLORIDE 0.9% 500 ML ONE (08:59)
[2023-07-17] MEDS: KCL 20 MEQ/100 mL IVPB 20 MEQ/100 ML BAG IV SCH (09:05)
[2023-07-17] MEDS ORDERED: INSULIN REGULAR (HUMAN) 100 UNIT/ML ONE ×2 (11:46→17:04)
[2023-07-17] MEDS: INSULIN REGULAR (HUMAN) 100 UNIT/ML SQ SCH (11:52)
[2023-07-18 05:44] LABS: Hematocrit 40.8 % (36.0-45.0); MCV 97.2 fL (80-100); MPV 8.4 fL (7.6-11.3); Platelets 118 thou/uL (152-406)
[2023-07-18 06:18] LABS: Albumin 2.2 g/dL (3.4-5.0); Bilirubin Total 2.1 mg/dL (0.2-1.0); Potassium 2.8 mEq/L (3.5-5.1); Protein, Total 6.3 g/dL (6.4-8.2)
[2023-07-18] MEDS: NA CHLORIDE 0.9% 250 ML IV SCH (09:23)
[2023-07-18] MEDS: KCL 20 MEQ/100 mL IVPB 20 MEQ/100 ML BAG IV SCH (09:23)
[2023-07-18] MEDS: POTASSIUM CL SA 10 MEQ TAB PO ONE ×2 (09:23→21:16)
--- NOTE | 2023-07-18 12:58 | P.PN ---
Date of Service: 07/18/23 Subjective Moved to fourth floor last night Awake and conversant this morning Blood pressure soft, held Lasix and gave 250 fluid Working well with therapy, on RA Plans to discharge with daughter until fully recovered for her return to [place] ROS 10 point ROS as noted above, otherwise negative Physical exam GEN: AAO x3, NAD, conversant HEENT: Normal conjunctiva, sclera anicteric CV: RRR, NSR, no edema Pulm: Nonlabored respirations on RA, bilaterally clear breath sounds ABD: Soft on palpation, NT/ND, positive bowel sounds MSK: No joint tenderness, weight bearing Integumentary: Bruising noted to bilateral arms, no external bleeding Neuro: Normal speech, normal affect, good balance Vitals Reviewed Problem List NSTEMI secondary to ACS/CAD New onset-acute systolic CHF Acute hypoxic respiratory failure secondary to above New onset afib with RVR/aberrant conduction Echocardiogram with severely depressed left ventricular ejection fraction 25 to 30% Anterior/apical akinesis Left atrial enlargement Moderate to severe mitral regurgitation Mild tricuspid regurgitation Heart cath 07/08 with 2 stents placed to LAD and left circ Transitioned to p.o. amiodarone (07/16)- stable continue on aspirin, Brilinta, PO eliquis 2.5 BID Patient will continue Eliquis, Brilinta and aspirin for 1 month After 1 month discontinue aspirin Decreased dose of PO Lasix to 20 daily, blood pressure soft but not dropping after doses Increased urine output-CXR / significantly improved Will need repeat heart catheterization in the near future for optimized revascularization of the LAD- per Dr. Galo's note continuous telemetry while on the floor Hypokalemia K 2.8 K 40 meq IV, 20 Meq PO monitor in AM labs decreased PO lasix to 20 mg daily Transaminitis/mildly elevated bilirubin Likely secondary to acute CHF, monitor daily labs Tbili 2.4, likely 2/2 heart failure, monitoring daily, stable Diabetes mellitus type 2itw-ilkmipb-ewyqbuuid with hyperglycemia ACHS Accu-Chek, sliding scale insulin increased to moderate blood sugar in the 200s Added 10u semglee daily 2/, serum glucose 119, improving VTE: Oral Eliquis, asa, brillinta Code: Full Dispo: 2 to 3 days-Plan to stay with daughter for further recovery before returning back to [place]
--- NOTE | 2023-07-18 15:47 | PN ---
Date of Progress Note: 07/18/2023 Subjective: Seen at bedside, doing clinically well. No shortness of breath, orthopnea, generally is weak. Review of Systems: No chest pain, shortness of breath, orthopnea, cough, nausea, vomiting, or diarrhea. All other syste ms reviewed are negative. Physical Examination: Vital Signs: Reviewed. Head and Neck: Pupils are equal, reactive to light. Intact eye movements. No JVD. No cervical lym phadenopathy. Neck is supple. Thyroid is not enlarged. Lungs: Clear to auscultation bilaterally. No rhonchi, rales, or crackles. No accessory muscle use. Heart: Regular rate and rhythm. No extra sounds. Abdomen: Soft, nontender. Bowel sounds positive. No organomegaly. No masses or hernia. No rigidi ty or rebound. Extremities: No clubbing, cyanosis. Intact pulses. Skin: No rash. Neurologic: Alert, awake, oriented x3. No acute focal deficits appreciated. Investigations: BUN 28, creatinine 1.31, which is up from yesterday. Assessment/recommendation: 1.Acute on chronic systolic heart failure exacerbation. Appears to be euvolemic. BUN, creatinine g oing up. Hold Lasix from now. Re-evaluate tomorrow. 2.Atrial fibrillation. She is in controlled with amiodarone. Eliquis to be continued. 3.Whw-IO-joyucnjlq myocardial infarction, status post PCI of left circumflex and LAD, doing well. Continue Brilinta and aspirin. 4.Debility. Recommend aggressive physical therapy. SR/MODL Voice ID: [id number] Report ID: [id number]
[2023-07-18] MEDS: ACETAMINOPHEN 325 MG TABLET PO PRN (21:51)
[2023-07-19 05:52] LABS: Hematocrit 38.5 % (36.0-45.0); MPV 8.3 fL (7.6-11.3); Platelets 109 thou/uL (152-406); RBC Red Blood Cell Count 3.97 M/uL (3.86-4.86)
[2023-07-19 06:22] LABS: Albumin 2.2 g/dL (3.4-5.0); Bilirubin Total 2.1 mg/dL (0.2-1.0); Magnesium 2.1 mg/dL (1.6-2.4); Phosphorus 2.5 mg/dL (2.5-4.9); Potassium 3.3 mEq/L (3.5-5.1); Protein, Total 6.2 g/dL (6.4-8.2)
[2023-07-19] MEDS: POTASSIUM CL SA 10 MEQ TAB PO ONE (08:35)
[2023-07-19] MEDS ORDERED: FUROSEMIDE 20 MG TABLET PO SCH (09:00)
[2023-07-19] MEDS: POTASSIUM CL 40 MEQ in NA CHLORIDE 0.9% 500 ML IV SCH (09:02)
--- NOTE | 2023-07-19 13:07 | P.PN ---
Subjective Date of Service: 07/19/23 Chief Complaint: SOB, symptomatic arrythmia Patient is complaining of back pain. He is also coughing. Cough is productive of blood-tinged sputum. Patient denies any shortness of breath. Physical Examination - Vital Signs Temperature: 98 F Blood Pressure: 115/68 Pulse: 88 Respirations: 18 Pulse Ox (%): 95 - Physical Exam General: Alert, In no apparent distress, Oriented x2 HEENT: Mucous membr. moist/pink Neck: Supple, JVD not distended Respiratory: Clear to auscultation bilaterally, Normal air movement Cardiovascular: No edema, Normal S1 S2, Irregular heart rate/rhythm Gastrointestinal: Soft and benign, Non-distended Musculoskeletal: No swelling Integumentary: No rashes, No cyanosis Neurological: Normal strength at 5/5 x4 extr Assessment And Plan - Plan Diagnosis Acute pulmonary edema New onset CHF NSTEMI SVT with aberrant conduction Acute respiratory failure with hypoxia Assessment NSTEMI secondary to ACS/CAD New onset-acute systolic CHF Acute hypoxic respiratory failure secondary to above New onset afib with RVR/aberrant conduction Nonsustained V. tach Echocardiogram with severely depressed left ventricular ejection fraction 25 to 30% Anterior/apical akinesis Left atrial enlargement Moderate to severe mitral regurgitation Mild tricuspid regurgitation Heart cath 07/08 with 2 stents placed to LAD and left circ Patient was on amiodarone drip, later transitioned to p.o. amiodarone (07/16)- stable Patient has been aspirin, Brilinta, PO eliquis 2.5 BID. Patient now with blood-tinged sputum and acute back pain Noted patient has thrombocytopenia. Thrombocytopenia has been relatively stable. Brilinta and aspirin are crucial for the next [address] thoracolumbar spine to rule out any hemorrhage. Patient with low normal blood pressure. Hold Lasix Optimize potassium given nonsustained V. tach Magnesium level is optimal. Repeat chest x-ray Will need repeat heart catheterization in the near future for optimized revascularization of the LAD after 1 month- per Dr. Galo's note continuous telemetry while on the floor Hypokalemia K 3.3 Replete potassium to a target of greater than 4. monitor in AM labs Transaminitis/mildly elevated bilirubin Likely secondary to acute CHF, monitor daily labs Tbili 2.4, likely 2/2 heart failure, monitoring daily, stable Diabetes mellitus type 4mag-bgrdjft-bfathqpth with hyperglycemia ACHS Accu-Chek, sliding scale insulin and Semglee insulin VTE: Oral Eliquis. Code: Full Dispo: Home.
[2023-07-19] MEDS: FENTANYL CITR 100 MCG/2 ML IV ONE (14:20)
--- NOTE | 2023-07-19 14:28 | RAD REPORT ---
EXAM DESCRIPTION: CT - Thoracic Spine W/o Cont - 07/19/2023 2:14 pm CLINICAL HISTORY: Radiculopathy. Acute back pain COMPARISON: C Spine Wo Con dated 07/15/2016; Chest Single View dated 07/14/2023 TECHNIQUE: Axial CT imaging through the thoracic spine was performed with coronal and sagittal re-fo rmatted images. All CT scans are performed using dose optimization technique as appropriate and may include automated exposure control or mA/KV adjustment according to patient size. FINDINGS: There is endplate irregularity centered at the disc level of T8-9. The surrounding soft ti ssues in the paraspinal space are thickened measuring up to 5 mm. A compression fracture is not seen. Bilateral pleural effusions are present. Patchy opacities in both lungs also noted which could be pul monary edema or pneumonia. IMPRESSION: Endplate irregularity centered at the T8-9 disc level. Surrounding paraspinal tissues ar e also mildly thickened up to 5 mm. MRI of the thoracic spine with contrast would be recommended to e valuate for infection or discitis.
--- NOTE | 2023-07-19 14:30 | RAD REPORT ---
EXAM DESCRIPTION: CT - Spine Lumbar Wo Con - 07/19/2023 2:14 pm CLINICAL HISTORY: Radiculopathy. Acute back pain COMPARISON: No comparisons TECHNIQUE: Axial noncontrast CT imaging of the lumbar spine was performed with coronal and sagittal re-formatted images. All CT scans are performed using dose optimization technique as appropriate and may include automated exposure control or mA/KV adjustment according to patient size. FINDINGS: No acute lumbar spine fracture seen. No aggressive marrow pattern or malalignment. Paraspinal tissues are normal in thickness. No paraspinal abscess or hematoma seen. There is likely disc herniation or significant disc bulge at L4-5 with facet and ligament flavum hype rtrophy. This results in moderate central canal stenosis. Moderate bilateral pleural effusions. IMPRESSION: No acute abnormality seen. Moderate central canal narrowing with spondylosis at L4-5 as detailed.
--- NOTE | 2023-07-19 15:04 | RAD REPORT ---
EXAM DESCRIPTION: RAD - Chest Single View - 07/19/2023 2:58 pm CLINICAL HISTORY: Follow up pulmonary edema Chest pain. COMPARISON: Chest Single View dated 07/14/2023; Chest Single View dated 07/13/2023; Chest Single View da rodriguez 07/11/2023; Chest Single View dated 07/10/2023 FINDINGS: Portable technique limits examination quality. Moderate pulmonary edema noted. Small to moderate bilateral pleural effusions. The heart is moderatel y enlarged. No displaced fractures. IMPRESSION: Moderate CHF pattern is noted, appearing mildly progressive since comparative study.
[2023-07-19] MEDS: FUROSEMIDE 40 MG TABLET PO SCH (16:32)
--- NOTE | 2023-07-19 17:03 | P.PN ---
Date of Service: 07/19/23 NAME: FARRUKH SANTOYO ADMIT DR: Loki Serrano MD ADMIT: 07/08/[address]: Loki Serrano MD : 1940 PT TYPE: ADM IN LOCATION: [address] [place] [address] DISCHARGE: Date of Progress Note: 07/19/2023 Subjective: Seen at bedside, still complain of shortness of breath, orthopnea, generally is weak. Review of Systems: No chest pain, positive for shortness of breath, orthopnea, cough, nausea, vomiting, or diarrhea. All other systems reviewed are negative. Physical Examination: Vital Signs: Reviewed. Head and Neck: Pupils are equal, reactive to light. Intact eye movements. No JVD. No cervical lymphadenopathy. Neck is supple. Thyroid is not enlarged. Lungs: Clear to auscultation bilaterally. No rhonchi, rales, or crackles. No accessory muscle use. Heart: Regular rate and rhythm. No extra sounds. Abdomen: Soft, nontender. Bowel sounds positive. No organomegaly. No masses or hernia. No rigidity or rebound. Extremities: No clubbing, cyanosis. Intact pulses. Skin: No rash. Neurologic: Alert, awake, oriented x3. No acute focal deficits appreciated. Investigations: BUN 28, creatinine 1.31, which is up from yesterday. Assessment/recommendation: 1. Acute on chronic systolic heart failure exacerbation. resume lasix 2. Atrial fibrillation. She is in controlled with amiodarone. Eliquis to be continued. 3. Mse-CA-kvihnigap myocardial infarction, status post PCI of left circumflex and LAD, doing well. Continue Brilinta and aspirin. 4. NSVT: Continue Amiodarone, will consider BB if BP is better
[2023-07-20 07:09] LABS: Potassium 4.4 mEq/L (3.5-5.1)
--- NOTE | 2023-07-20 08:58 | P.DS ---
Admission Date: 07/08/23 Discharge Date: 07/20/23 Reason for Admission: SOB, symptomatic arrythmia Brief History of Present Illness: Shaye Tristan is an 83-year-old female with past medical history of diabetes, Hyperlipidemia, and cholecystectomy, who presents to the ED with complaints of shortness of breath that have worsened in the last week but has been in existence for 3 months total. When she arrived to the ED, EKG showed wide- complex QRS, troponin 4778.8, BNP 8776, HR 140. While in the ED, Dr. Galo was consulted recommended 150 mg amiodarone, heparin bolus, 12 mg adenosine x 2, Lasix 40 mg. EKG was normalized. On examination, She was AAOx3, conversant, no chest pain, tolerating the CPAP with satisfactory oxygenation, and a good historian. Her HR was 88 in NSR at that time. Of note, she is visiting from [place] with her grandson. EKG Rate is 140 beats/min. Rhythm is regular. QRS interval is prolonged. Wide complex tachycardia. Initial vital BP 103 / 79; Pulse 113; Resp 31; Temp 97.7(O); Pulse Ox 95% on 2 lpm NC. Laboratory evaluation troponin 4578.8, BNP 8776, T. bili 1.6, direct bili 0.6, indirect bili 1.0, AST 71, serum glucose 220 sodium 136, potassium 3.6, magnesium 1.7, PT/INR 15.6/1.43 Shaye will be admitted to hospitalist service for further evaluation and treatment of NSTEMI, Dr. Galo consulted and will take to the Policy Change Clerk today. Vital Signs/Physical Exam: Temp Pulse Resp BP Pulse Ox 98.3 F 80 18 104/62 97 07/20/23 04:00 07/20/23 08:47 07/20/23 04:00 07/20/23 08:47 07/20/23 04:00 Laboratory Data at Discharge: WBC 10.80 thou/uL (4.3-10.9) 07/19/23 05:20 Hgb 13.3 g/dL (12.0-15.0) 07/19/23 05:20 Hct 38.5 % (36.0-45.0) 07/19/23 05:20 Plt Count 109 thou/uL (152-406) L 07/19/23 05:20 PT 15.6 SECONDS (9.5-12.5) H 07/08/23 10:55 INR 1.43 07/08/23 10:55 APTT 60.9 SECONDS (24.3-36.9) H 07/10/23 01:25 Sodium 136 mEq/L (136-145) 07/20/23 06:40 Potassium 4.4 mEq/L (3.5-5.1) 07/20/23 06:40 BUN 30 mg/dL (7-18) H 07/20/23 06:40 Creatinine 1.38 mg/dL (0.55-1.02) H 07/20/23 06:40 Glucose 162 mg/dL (74-106) H 07/20/23 06:40 Phosphorus 2.5 mg/dL (2.5-4.9) 07/19/23 05:20 Magnesium 2.1 mg/dL (1.6-2.4) 07/19/23 05:20 Total Bilirubin 2.1 mg/dL (0.2-1.0) H 07/19/23 05:20 AST 54 U/L (15-37) H 07/19/23 05:20 ALT 39 U/L (13-56) 07/19/23 05:20 Alkaline Phosphatase 120 U/L (45-117) H 07/19/23 05:20 Triglycerides 147 mg/dL (<150) 07/08/23 10:00 Cholesterol 146 mg/dL (<200) 07/08/23 10:00 HDL Cholesterol 35 mg/dL (40-60) L 07/08/23 10:00 Cholesterol/HDL Ratio 4.17 07/08/23 10:00 Home Medications: Biotin 1 cap PO DAILY 07/11/23 Cholecalciferol (Vitamin D3) [Vitamin D 1000 Iu Tab*] 1 tab PO DAILY 07/11/23 Amiodarone HCl [Cordarone*] 200 mg PO BID #60 tab 07/20/23 Apixaban [Eliquis *] 2.5 mg PO BID #60 tab 07/20/23 Aspirin Chewable [Aspirin Chewable*] 81 mg PO DAILY #30 tab.chew 07/20/23 Atorvastatin Calcium [Lipitor] 40 mg PO BEDTIME #30 tab 07/20/23 Docusate [Colace Cap*] 100 mg PO BID #60 cap 07/20/23 Ensure High Protein 237 ml PO BID #60 can 07/20/23 Furosemide [Lasix*] 40 mg PO BIDL #30 tab 07/20/23 Metoprolol Tartrate [Lopressor*] 12.5 mg PO BID 6AM 6PM #30 tab 07/20/23 Ticagrelor [Brilinta*] 90 mg PO BID #60 tab 07/20/23 New Medications: Aspirin Chewable [Aspirin Chewable*] 81 mg PO DAILY #30 tab.chew Ticagrelor [Brilinta*] 90 mg PO BID #60 tab Docusate [Colace Cap*] 100 mg PO BID #60 cap Amiodarone HCl [Cordarone*] 200 mg PO BID #60 tab Apixaban [Eliquis *] 2.5 mg PO BID #60 tab Ensure High Protein 237 ml PO BID #60 can Furosemide [Lasix*] 40 mg PO BIDL #30 tab Atorvastatin Calcium [Lipitor] 40 mg PO BEDTIME #30 tab Metoprolol Tartrate [Lopressor*] 12.5 mg PO BID 6AM 6PM #30 tab Diet: ADA Activity: Fall precautions Followup: SANDRA FLORES [Primary Care Provider] - Fabio Galo MD [ACTIVE - CAN ADMIT] - (within 2 weeks)
[2023-07-20] MEDS: METOPROLOL TAR 25 MG TAB PO SCH (09:11)
[2023-07-20] MEDS: APIXABAN 2.5 MG TABLET PO SCH (09:31)
--- NOTE | 2023-07-20 10:02 | P.PN ---
Subjective Date of Service: 07/20/23 Chief Complaint: SOB, symptomatic arrythmia Subjective: No C/O voiced (patient feels better today.) Review of Systems 10-point ROS is otherwise unremarkable Physical Examination - Vital Signs Temperature: 97.7 F Blood Pressure: 104/62 Pulse: 80 Respirations: 22 Pulse Ox (%): 96 - Physical Exam General: Alert, In no apparent distress, Oriented x3 HEENT: Atraumatic Neck: Supple, 2+ carotid pulse no bruit Respiratory: Diminished, Crackles/rales Cardiovascular: No edema, Normal S1 S2 Gastrointestinal: Normal bowel sounds Assessment And Plan - Current Problems (Diagnosis) (1) Acute on chronic combined systolic (congestive) and diastolic (congestive) heart failure Current Visit: Yes Status: Acute Plan: patient is s/p PCI LAD/LCX Continue ASA and Brilinta ok to hold eleiquis at this time agree with Lasix 40 mg po BID Continue Amiodarone 200 mg po BID start lopressor 12.5 mg po BID and watch the burden of NSVT patient will need life vest Monitor input and output replace K for goal more than 4 and Mg more than 2
--- NOTE | 2023-07-20 13:22 | P.PN ---
Subjective Date of Service: 07/20/23 Chief Complaint: SOB, symptomatic arrythmia Patient is coughing intermittently. She denies shortness of breath. surveillance monitor demonstrated intermittent nonsustained VT. Physical Examination - Vital Signs Temperature: 98.2 F Blood Pressure: 97/54 Pulse: 73 Respirations: 20 Pulse Ox (%): 96 Assessment And Plan - Plan Physical Exam General: Alert, In no apparent distress, Oriented x2 HEENT: Mucous membr. moist/pink Neck: Supple, JVD not distended Respiratory: Mild bibasilar Rales, Normal air movement Cardiovascular: No edema, Normal S1 S2, Irregular heart rate/rhythm Gastrointestinal: Soft and benign, Non-distended Musculoskeletal: No swelling Integumentary: No rashes, No cyanosis Neurological: Normal strength at 5/5 x4 extr Diagnosis Acute pulmonary edema New onset CHF NSTEMI SVT with aberrant conduction Acute respiratory failure with hypoxia Assessment NSTEMI secondary to ACS/CAD New onset-acute systolic CHF Acute hypoxic respiratory failure secondary to above New onset afib with RVR/aberrant conduction Nonsustained V. tach Echocardiogram with severely depressed left ventricular ejection fraction 25 to 30% Anterior/apical akinesis Left atrial enlargement Moderate to severe mitral regurgitation Mild tricuspid regurgitation Heart cath 07/08 with 2 stents placed to LAD and left circ Patient was on amiodarone drip, later transitioned to p.o. amiodarone (07/16)- stable Patient has been aspirin, Brilinta, PO eliquis 2.5 BID. Patient now with blood-tinged sputum and acute back pain Noted patient has thrombocytopenia. Thrombocytopenia has been relatively stable. Brilinta and aspirin are crucial for the next [address] thoracolumbar spine negative for any bleed. Eliquis resumed. Blood-tinged sputum likely secondary to pulmonary edema. Continue Lasix Patient with low normal blood pressure. Cardiology is following and recommend low-dose metoprolol due to nonsustained VT. Patient will need LifeVest placement outpatient. Optimize potassium and magnesium given nonsustained V. tach Will need repeat heart catheterization in the near future for optimized revascularization of the LAD after 1 month- per Dr. Galo's note continuous telemetry. Hypokalemia Corrected Replete potassium to a target of greater than 4. monitor in AM labs Transaminitis/mildly elevated bilirubin Likely secondary to acute CHF, monitor daily labs Tbili 2.4, likely 2/2 heart failure, monitoring daily, stable Diabetes mellitus type 2qxw-[id number]-displiegz with hyperglycemia ACHS Accu-Chek, sliding scale insulin and Semglee insulin. RADHA Continue Lasix Nephrology consult. Monitor renal function VTE: Oral Eliquis. Code: Full Dispo: Home.
[2023-07-20] MEDS: ALBUMIN HUMAN 25% 100 ML IV SCH (15:41)
--- NOTE | 2023-07-20 16:33 | CON ---
Date of Consultation: 07/20/2023 Reason For Consultation: Acute kidney injury. Chief Complaint: Shortness of breath. History Of Present Illness: This is an 83-year-old woman with past medical history of heart failure, reduced ejection fraction of 20%, diabetes mellitus, hyperlipidemia, who presented to the ER marie rodgers of shortness of breath. The patient underwent cardiac catheterization, found to have ejection f raction of 20% noticed to have borderline blood pressure, currently she is on amiodarone. The patient started on Lasix. Creatinine noted to increase from 1 on admission to 1.3 right now. N ephrology consulted for further evaluation. Past Medical History: Diabetes, atrial fibrillation, congestive heart failure. Past Surgical History: Cholecystectomy. Family History: Noncontributory. Social History: No history of tobacco or recreational drug abuse. Allergies: THE PATIENT IS ALLERGIC TO MORPHINE AND METFORMIN. Current Medications: Include amiodarone, Eliquis, aspirin, Lipitor, Lasix, and Brilinta. Review of Systems: General: weakness. No fever or chills. HEENT: Denies headache or blurry vision. Respiratory: Has exertional dyspnea. No cough. Cardiovascular: Denies chest pain or palpitation. GI: Denies nausea, vomiting, diarrhea, or constipation. : Denies dysuria, hematuria, increase in frequency or urgency. Physical Examination: Vital Signs: Temp 98.2, pulse rate 73, blood pressure 97/54. General: Awake and alert. Looks chronically ill. Neck: Supple. No JVD. Heart: Regular rate and rhythm. Normal S1, S2. Chest: Decreased entry to the bases. No rales or wheezes. Abdomen: Soft, nontender. Extremities: No edema. Lab: White count 10.8, hemoglobin 13.3, platelets 109. Sodium 136, potassium 4.4, BUN 30, creatinin e 1.3. Assessment And Plan: 1.Acute kidney injury. Less likely due to contrast associated nephropathy, possibly due to cardiore nal syndrome and ischemic ATN. I will start the patient on albumin, keep MAP more than 60. We will consider midodrine if the blood pressure remains borderline. Renal dose medication. 2.Heart failure with reduced ejection fraction. Most recent chest x-ray showed worsening pulmonary edema. Continue Lasix. Carefully monitor volume status. 3.Coronary artery disease status post PCI, on dual antiplatelet therapy. 4.Atrial fibrillation, currently rate controlled. The patient is on metoprolol and amiodarone. 5.Diabetes mellitus. Continue insulin. Thanks for allowing me to participate in the patient's care. Total time spent 55 minutes including d ocumentation, review of labs, and discussing with the patient and daughter at the bedside. ECTOR Voice ID: [id number] Report ID: [id number]
[2023-07-20] MEDS: MORPHINE 2 MG/ML SYR IV ONE (22:47)
[2023-07-21 06:29] LABS: Absolute Lymphocytes (CBC) 1.1 K/uL (0.7-4.9); Hematocrit 32.3 % (36.0-45.0); MCV 98.6 fL (80-100); MPV 8.6 fL (7.6-11.3); Platelets 84 thou/uL (152-406); RBC Red Blood Cell Count 3.28 M/uL (3.86-4.86)
[2023-07-21 06:45] LABS: Albumin 2.9 g/dL (3.4-5.0); Magnesium 2.1 mg/dL (1.6-2.4); Phosphorus 3.6 mg/dL (2.5-4.9)
[2023-07-21 09:00] LABS: Platelet Estimate DECR; White Blood Cell Scan OK (OK)
[2023-07-21 09:01] LABS: Blood Morphology Comment NOT SEEN (NOT SEEN)
[2023-07-21] MEDS: Mupirocin NASAL 2 APPL/1 GM TUBE NAS SCH (09:27)
--- NOTE | 2023-07-21 10:37 | P.PN ---
Date of Service: 07/21/23 NAME: FARRUKH SANTOYO ADMIT DR: Loki Serrano MD ADMIT: 07/08/[address]: Loki Serrano MD : 1940 PT TYPE: ADM IN LOCATION: [address] [place] [address] DISCHARGE: Date of Progress Note: 07/21/2023 Subjective: Seen at bedside, still complain of shortness of breath, orthopnea, generally is weak. patient went into wide complex slow tachycardia Review of Systems: No chest pain, positive for shortness of breath, orthopnea, cough, nausea, vomiting, or diarrhea. All other systems reviewed are negative. Physical Examination: Vital Signs: Reviewed. Head and Neck: Pupils are equal, reactive to light. Intact eye movements. No JVD. No cervical lymphadenopathy. Neck is supple. Thyroid is not enlarged. Lungs: Clear to auscultation bilaterally. No rhonchi, rales, or crackles. No accessory muscle use. Heart: Regular rate and rhythm. No extra sounds. Abdomen: Soft, nontender. Bowel sounds positive. No organomegaly. No masses or hernia. No rigidity or rebound. Extremities: No clubbing, cyanosis. Intact pulses. Skin: No rash. Neurologic: Alert, awake, oriented x3. No acute focal deficits appreciated. Investigations: BUN 28, creatinine 1.31, which is up from yesterday. Assessment/recommendation: 1. Acute on chronic systolic heart failure exacerbation. IV Lasix drip 2. Atrial fibrillation. patient is most likely in slow fib with abberancy, would recommend transfer to ICU and starting Amiodarone with 150 mg IV oush then start drip by 1 mg/min for 6 hours followed by 0.5 mg/min for 16 hours. 3. Onz-LG-hdtuznuxt myocardial infarction, status post PCI of left circumflex and LAD, doing well. Continue Brilinta and aspirin. 4. NSVT: Continue Amiodarone, will consider BB if BP is better
[2023-07-21] MEDS: ALBUMIN HUMAN 25% 12.5 GM, FUROSEMIDE 100 MG in NA CHLORIDE 0.9% 40 ML IV SCH ×2 (11:43→16:33)
--- NOTE | 2023-07-21 13:10 | RAD REPORT ---
EXAM DESCRIPTION: RAD - Chest Single View - 07/21/2023 12:50 pm CLINICAL HISTORY: picc/chf COMPARISON: Chest Single View dated 07/20/2023; Chest Single View dated 07/19/2023; Chest Single View d ated 07/14/2023; Chest Single View dated 07/13/2023 FINDINGS: Portable chest was obtained following placement of a left upper extremity PICC line. The c atheter tip projects over the SVC.
--- NOTE | 2023-07-21 13:34 | P.PN ---
Subjective Date of Service: 07/21/23 Chief Complaint: SOB, symptomatic arrythmia Patient developed acute respiratory distress overnight. She was placed on BiPAP. Repeat chest x-ray showed worsening pulmonary edema Patient has cough with blood-tinged sputum. library monitor showing intermittent nonsustained VT and aberrant conduction. Physical Examination - Vital Signs Temperature: 97.3 F Blood Pressure: 90/60 Pulse: 70 Respirations: 25 Pulse Ox (%): 98 Assessment And Plan - Plan Physical Exam General: Alert, In no apparent distress, Oriented x2 HEENT: Mucous membr. moist/pink Neck: Supple, JVD not distended Respiratory: Diffuse Rales, Normal air movement, no rhonchi Cardiovascular: No edema, Normal S1 S2, Irregular heart rate/rhythm Gastrointestinal: Soft and benign, Non-distended Musculoskeletal: No swelling Integumentary: No rashes, No cyanosis Neurological: Normal strength at 5/5 x4 extr Diagnosis Acute pulmonary edema New onset CHF NSTEMI SVT with aberrant conduction Acute respiratory failure with hypoxia Assessment NSTEMI secondary to ACS/CAD New onset-acute systolic CHF Acute hypoxic respiratory failure secondary to above New onset afib with RVR/aberrant conduction Nonsustained V. tach Echocardiogram with severely depressed left ventricular ejection fraction 25 to 30% Anterior/apical akinesis Left atrial enlargement Moderate to severe mitral regurgitation Mild tricuspid regurgitation Heart cath 07/08 with 2 stents placed to LAD and left circ Patient was on amiodarone drip, later transitioned to p.o. amiodarone (07/16)- stable Patient has been aspirin, Brilinta. Patient now with blood-tinged sputum. Noted patient has thrombocytopenia. Thrombocytopenia has been relatively stable. Brilinta and aspirin are crucial for the next [address] thoracolumbar spine negative for any bleed. Hold Eliquis given blood-tinged sputum likely secondary to pulmonary edema. Serum creatinine is trending up. Pulmonary edema has not responded to the current Lasix dose. Patient with low normal blood pressure. Patient transferred to the ICU and started on Lasix drip with albumin infusion. BiPAP as needed for respiratory distress. Metoprolol ordered for nonsustained VT is on hold. Cardiology evaluated today and recommended amiodarone drip. Levophed as needed. Patient will need LifeVest placement outpatient. Optimize potassium and magnesium given nonsustained V. tach Will need repeat heart catheterization in the near future for optimized revascularization of the LAD after 1 month- per Dr. Galo. Hypokalemia Corrected Replete potassium to a target of greater than 4. monitor AM labs Transaminitis/mildly elevated bilirubin Likely secondary to acute CHF, monitor daily labs Tbili 2.4, likely 2/2 heart failure, monitoring daily, stable Diabetes mellitus type 2sno-erwquwy-jhegoejyr with hyperglycemia ACHS Accu-Chek, sliding scale insulin and Semglee insulin. RADHA P.o. Lasix changed to Lasix drip. Nephrology input appreciated. Cardiorenal syndrome suspected. Monitor renal function VTE: Heaprin SQ Code: Full Dispo: Home. Critical care time spent managing patient's acute respiratory failure secondary, pulm edema and hypertension was about 52 minutes.
[2023-07-21] MEDS: MIDODRINE HCL 5 MG TABLET PO SCH (14:00)
--- NOTE | 2023-07-21 15:30 | PN ---
Date of Progress Note: 07/21/2023 Subjective: Patient is an 83-year-old woman with past medical history of heart failure with reduced ejection fraction of 20%, diabetes mellitus, hyperlipidemia, was admitted for chest pain, required ca rdiac catheterization. The patient's creatinine was 1 and increased to 1.4. She noticed to have a b orderline blood pressure and today chest x-ray shows worsening edema. The patient moved to ICU to [facility] on Lasix drip and can monitor her volume status. Objective: Vital Signs: Temperature 97.3, pulse rate of 70, blood pressure 90/60. General: Awake and alert. Looks chronically ill. Neck: Supple. No JVD. Heart: Regular rate and rhythm. Normal S1, S2. Chest: Diffuse bilateral rales. Abdomen: Soft, nontender. Extremities: No edema. Laboratory Data: White count is 11, hemoglobin 11, platelets 84. Sodium 136, potassium of 4, BUN 34 , creatinine 1.4. Troponin elevated to 765. Assessment And Plan: 1.Acute on chronic kidney disease, likely due to cardiorenal syndrome and ischemic acute tubular nec rosis. Followup renal ultrasound results. The patient is started on Lasix drip. Monitor I and O. renally dose medications. Avoid NSAID and contrast. Unlike acute kidney injury, unlike due to contr ast-associated nephropathy. No indication for renal replacement therapy at this time. GFR is more t donovan 15, and patient is nonoliguric. 2.Congestive heart failure, reduced ejection fraction 20%. Continue Lasix drip. Monitor I and O. we will start the patient on midodrine. Discussed with Cardiology. 3.Coronary artery disease, status post percutaneous coronary intervention. 4.Atrial fibrillation. Currently rate controlled on amiodarone. Beta rojas at home due to hypote nsive episode. Thanks for allowing me to participate in the patient's care. Total time spent, 75 minutes including documentation, reviewing labs, and discussing with the medical team and the nursing staff. Overall g uarded prognosis. AA/MODL Voice ID: [id number] Report ID: [id number]
[2023-07-21] MEDS ORDERED: INSULIN REGULAR (HUMAN) 100 UNIT/ML ONE ×2 (17:07→20:29)
[2023-07-21] MEDS ORDERED: TICAGRELOR 90 MG TABLET PO ONE (19:47)
[2023-07-21] MEDS ORDERED: DOCUSATE NA 100 MG CAP PO ONE (19:48)
[2023-07-21] MEDS ORDERED: AMIODARONE HCL 200 MG TAB ONE (19:48)
--- NOTE | 2023-07-21 19:51 | RAD REPORT ---
EXAM DESCRIPTION: XR Chest, 1 View CLINICAL HISTORY: The patient is 83 years old and is Female; shortness of breath TECHNIQUE: Frontal view of the chest. COMPARISON: 07/19/2023 chest radiograph FINDINGS: LUNGS: Diffuse bilateral interstitial opacities with bilateral perihilar, peripheral, an d basilar predominant airspace disease, favoring pulmonary edema over an infectious or inflammatory l jaimie process. PLEURAL SPACE: Cannot exclude layering bilateral pleural effusions. No appreciable pneumothorax. MEDIASTINUM: Enlarged cardiomediastinal silhouette. BONES/JOINTS: No acute osseous abnormality. VASCULATURE: Calcified atherosclerosis of the thoracic aorta. IMPRESSION: 1. Cardiomegaly with diffuse pulmonary edema favored over an infectious or inflammator y lung process. 2. Possible bilateral pleural effusions. Electronically signed by: Sha Tyler MD 07/20/2023 11:37 PM ANIMAL RESCUER Due to temporary technical issues with the PACS/Fluency reporting system, reports are being signed by the in house radiologists without review as a courtesy to insure prompt reporting. The interpreting radiologist is fully responsible for the content of the report.
[2023-07-21] MEDS: NOREPINEPHRINE BITARTRATE/D5W 4 MG/250 ML BAG IV SCH (21:30)
[2023-07-22] MEDS ORDERED: NOREPINEPHRINE BITARTRATE/D5W 4 MG/250 ML BAG IV ONE ×3 (02:29→16:16)
[2023-07-22 05:38] LABS: Albumin 3.3 g/dL (3.4-5.0); Phosphorus 3.1 mg/dL (2.5-4.9); Potassium 3.3 mEq/L (3.5-5.1)
[2023-07-22] MEDS ORDERED: NA CHLORIDE 0.9% 100 ML ONE (05:57)
[2023-07-22] MEDS: KCL 20 MEQ/100 mL IVPB 20 MEQ/100 ML BAG IV SCH (05:59)
[2023-07-22] MEDS ORDERED: TICAGRELOR 90 MG TABLET PO ONE ×2 (08:50→20:15)
[2023-07-22] MEDS ORDERED: DOCUSATE NA 100 MG CAP PO ONE ×2 (09:32→20:17)
[2023-07-22] MEDS ORDERED: AMIODARONE HCL 200 MG TAB ONE ×2 (09:32→20:16)
[2023-07-22] MEDS: LORazepam 2 MG/ML VIAL IV ONE (11:07)
[2023-07-22] MEDS ORDERED: LORazepam 2 MG/ML VIAL ONE (11:12)
--- NOTE | 2023-07-22 11:22 | P.PN ---
Date of Service: 07/22/23 NAME: FARRUKH SANTOYO ADMIT DR: Loki Serrano MD ADMIT: 07/08/[address]: Loki Serrano MD : 1940 PT TYPE: ADM IN LOCATION: [address] [place] [address] DISCHARGE: Date of Progress Note: 07/22/2023 Subjective: Seen at bedside, still complain of shortness of breath, orthopnea, generally is weak om BiPAP and requiring low dose levophed Review of Systems: No chest pain, positive for shortness of breath, orthopnea, cough, nausea, vomiting, or diarrhea. All other systems reviewed are negative. Physical Examination: Vital Signs: Reviewed. Head and Neck: Pupils are equal, reactive to light. Intact eye movements. No JVD. No cervical lymphadenopathy. Neck is supple. Thyroid is not enlarged. Lungs: Clear to auscultation bilaterally. No rhonchi, rales, or crackles. No accessory muscle use. Heart: Regular rate and rhythm. No extra sounds. Abdomen: Soft, nontender. Bowel sounds positive. No organomegaly. No masses or hernia. No rigidity or rebound. Extremities: No clubbing, cyanosis. Intact pulses. Skin: No rash. Neurologic: Alert, awake, oriented x3. No acute focal deficits appreciated. Investigations: BUN 28, creatinine 1.31, which is up from yesterday. Assessment/recommendation: 1. Acute on chronic systolic heart failure exacerbation. patient is in shock re quring active chemical support IV Lasix drip Continue levophed for MAP>65, would not recommend Dobutamine as it is pro arrhythmic and patient is having runs of NSVT. 2. Atrial fibrillation. patient is most likely in slow fib with abberancy, continue amiodarone 200 mg po BID 3. Ews-FB-otdycwoxt myocardial infarction, status post PCI of left circumflex and LAD, doing well. Continue Brilinta and aspirin. 4. NSVT: Continue Amiodarone, will consider BB if BP is better
[2023-07-22] MEDS ORDERED: HYDROCORTISONE SUC 100 MG INJ ONE ×2 (12:13→20:16)
--- NOTE | 2023-07-22 12:23 | P.CNS ---
Date of Consult: 07/22/23 Reason for Consult: Respiratory failure Chief Complaint: SOB, symptomatic arrythmia History of Present Illness: Patient is 83 years of age admitted with non-STEMI severe congestive heart failure appears to be in cardiogenic shock currently is on Levophed and on BiPAP unresponsive daughter at the bedside apparently she received Ativan Allergies metformin Allergy (Verified 12/27/19 23:04) Nausea/Vomiting Home Medications: Biotin 1 cap PO DAILY 07/11/23 Cholecalciferol (Vitamin D3) [Vitamin D 1000 Iu Tab*] 1 tab PO DAILY 07/11/23 Amiodarone HCl [Cordarone*] 200 mg PO BID #60 tab 07/20/23 Apixaban [Eliquis *] 2.5 mg PO BID #60 tab 07/20/23 Aspirin Chewable [Aspirin Chewable*] 81 mg PO DAILY #30 tab.chew 07/20/23 Atorvastatin Calcium [Lipitor] 40 mg PO BEDTIME #30 tab 07/20/23 Docusate [Colace Cap*] 100 mg PO BID #60 cap 07/20/23 Ensure High Protein 237 ml PO BID #60 can 07/20/23 Furosemide [Lasix*] 40 mg PO BIDL #30 tab 07/20/23 Metoprolol Tartrate [Lopressor*] 12.5 mg PO BID 6AM 6PM #30 tab 07/20/23 Ticagrelor [Brilinta*] 90 mg PO BID #60 tab 07/20/23 - Past Medical/Surgical History Diabetic: Yes -: DM- NIDDM -: History of TIA -: Non-STEMI -: Cholecystectomy -: Cardiac stents - Social History Smoking Status: Never smoker Alcohol use: No CD- Drugs: No Caffeine use: Yes Place of Residence: Home Review of Systems is unable to be obtained Physical Examination Temp Pulse Resp BP Pulse Ox 97.6 F 100 H 37 H 95/72 96 07/22/23 08:00 07/22/23 11:18 07/22/23 11:00 07/22/23 11:00 07/22/23 11:18 General: Unresponsive HEENT: Other Respiratory: Clear to auscultation bilaterally, Diminished Cardiovascular: No edema, Regular rate/rhythm, Normal S1 S2 Gastrointestinal: Normal bowel sounds, Soft and benign - Problems (1) Shock Current Visit: Yes Status: Acute Plan: Patient is 83 years of age admitted with non-STEMI appears to be in cardiogenic shock daughter at the bedside currently she was doing fairly well was seen [place] at the [facility] complaining of shortness of breath for 3 months prior to this episode 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
--- NOTE | 2023-07-22 12:42 | RAD REPORT ---
EXAM DESCRIPTION: Jason Single View07/22/2023 12:31 pm CLINICAL HISTORY: Respiratory failure COMPARISON: July 21, 2023 FINDINGS: Moderate diffuse bilateral pulmonary opacities and pleural effusions mildly improved Cardiomegaly persists
[2023-07-22] MEDS ORDERED: INSULIN REGULAR (HUMAN) 100 UNIT/ML ONE ×3 (12:46→20:16)
--- NOTE | 2023-07-22 12:51 | P.PN ---
Subjective Date of Service: 07/22/23 Chief Complaint: SOB, symptomatic arrythmia Patient remains dependent on BiPAP. Patient has not been tolerating oxygen by nasal cannula today. Patient has cough with blood-tinged sputum. traffic monitor specialist has been reading intermittent nonsustained VT and aberrant V- conduction. Physical Examination - Vital Signs Temperature: 97.6 F Blood Pressure: 95/72 Pulse: 100 Respirations: 37 Pulse Ox (%): 96 Assessment And Plan - Plan Physical Exam General: Alert, mild respiratory distress, oriented x2 HEENT: Mucous membr. moist/pink Neck: Supple, JVD not distended Respiratory: Diffuse Rales, Normal air movement, no rhonchi Cardiovascular: No edema, Normal S1 S2, Irregular heart rate/rhythm Gastrointestinal: Soft and benign, Non-distended Musculoskeletal: No swelling Integumentary: No rashes, No cyanosis Neurological: Normal strength at 5/5 x4 extr Diagnosis Acute pulmonary edema New onset CHF NSTEMI SVT with aberrant conduction Acute respiratory failure with hypoxia Assessment NSTEMI secondary to ACS/CAD New onset-acute systolic CHF Acute hypoxic respiratory failure secondary to above New onset afib with RVR/aberrant conduction Nonsustained V. tach Echocardiogram with severely depressed left ventricular ejection fraction 25 to 30% Anterior/apical akinesis Left atrial enlargement Moderate to severe mitral regurgitation Mild tricuspid regurgitation Heart cath 07/08 with 2 stents placed to LAD and left circ Patient was on amiodarone drip, later transitioned to p.o. amiodarone (07/16)- stable Patient has been aspirin, Brilinta. Patient has blood-tinged sputum. Noted patient has thrombocytopenia. Monitor platelet count closely Brilinta and aspirin are crucial for the next [address] thoracolumbar spine negative for any bleed. Eliquis on hold given blood-tinged sputum likely secondary to pulmonary edema. Serum creatinine continue to trend up. Patient is currently on Lasix drip and albumin infusion. Patient did not have significant urine output as suspected with a Lasix drip and albumin Patient with low normal blood pressure. Currently on low-dose Levophed to maintain MAP greater than 65 BiPAP as needed for respiratory distress. Metoprolol ordered for nonsustained VT is on hold. Patient is on amiodarone for nonsustained VT Patient will need LifeVest placement as outpatient. Optimize potassium and magnesium given nonsustained V. tach Patient planned for heart catheterization in the near future for optimized revascularization of the LAD after 1 month- per Dr. Galo. Nephrology to follow to assess need for ultrafiltration or CRRT. Hypokalemia Replete potassium to a target of greater than 4. monitor AM labs Transaminitis/mildly elevated bilirubin Likely secondary to acute CHF, monitor daily labs Tbili 2.4, likely 2/2 heart failure, monitoring daily, stable Diabetes mellitus type [id number]-swqxetz-bhmnilcol with hyperglycemia Patient oral intake is decreased Blood sugar management insulin sliding scale. Semglee is on hold. RADHA P.o. Lasix changed to Lasix drip. Serum creatinine trended up Cardiorenal syndrome suspected. Monitor renal function Nephrology to follow. VTE: Heaprin SQ Code: Full Dispo: Home. Plan of care discussed with patient's daughter.
[2023-07-22 13:06] LABS: Arterial Blood Carboxyhemoglob 1.6 % (0-1.5); Blood Gas Oxyhemoglobin 94.2 % (94-97); Blood O2 Saturation 97.1 % (92-98.5)
[2023-07-22] MEDS: HYDROCORTISONE SUC 100 MG INJ IV SCH (13:10)
--- NOTE | 2023-07-22 13:44 | EKG ---
Test Date: 2023-07-19 Test Time: 05:40:55 Wall Crane Operator: 33 MEASUREMENT RESULTS: Intervals: Rate: 80 SC: 184 QRSD: 106 QT: 442 QTc: 509 Drift: P: 40 SC: 184 QRS: 7 T: 35 INTERPRETIVE STATEMENTS: Normal sinus rhythm Low voltage QRS Cannot rule out Anterior infarct, age undetermined Abnormal ECG Compared to ECG 07/09/2023 01:40:00 Low QRS voltage now present ST (T wave) deviation no longer present Myocardial infarct finding still present Electronically Signed On 07-22-23 13:35:44 INSURANCE CLAIMS CLERK by Fabio Galo
[2023-07-22] MEDS: ALBUMIN HUMAN 25% 12.5 GM, FUROSEMIDE 100 MG in NA CHLORIDE 0.9% 40 ML IV SCH (15:57)
[2023-07-22] MEDS ORDERED: VITAL AF 1,000 ML BOT RTH SCH (16:00)
[2023-07-22 16:06] LABS: SARS-CoV-2 Antigen Rapid Res Negative (Negative)
--- NOTE | 2023-07-22 17:06 | RAD REPORT ---
EXAM DESCRIPTION: RAD - Abdomen 1 View (KUB) - 07/22/2023 4:59 pm CLINICAL HISTORY: Device placement Dobhoff tube placement FINDINGS: Dobhoff tube coiled within the junction of the gastric fundus and body.
[2023-07-22] MEDS ORDERED: LORazepam 2 MG/ML VIAL IV PRN (17:18)
[2023-07-22] MEDS ORDERED: GLUCERNA 1.2 CAL 1,000 ML BOT FT SCH (18:00)
--- NOTE | 2023-07-23 02:20 | PN ---
Date of Progress Note: 07/22/2023 Subjective: The patient is an 83-year-old woman with past medical history of congestive heart failur e with reduced ejection fraction, EF of 20%; diabetes mellitus; hyperlipidemia. The patient was admi tted for chest pain. She required cardiac catheterization. She developed acute kidney injury. Seru m creatinine increased from 1 to 1.4. The patient is transferred to ICU because of shortness of maritza th. She was started on Lasix drip. She remains stable. Review of Systems: The patient cannot provide review of systems. She is on BiPAP. Physical Examination: Lungs: Equal chest expansion. Diffuse rales. Abdomen: Soft, benign. Extremities: No edema. Neck: Supple. General: The patient looks chronically ill. Laboratory Data: White count 11, hemoglobin 11, platelets 84,000. Sodium 136, potassium 4.0, BUN 34 , creatinine 1.4. Troponin 765. Lab work today showed sodium 136, potassium 3.3, chloride 99, CO2 26, BUN 44, creatinine 1.91, glucos e 211. Albumin 3.3, calcium 8.9, phosphorus 3.1. Impression And Plan: 1.Acute kidney injury on chronic kidney disease, cardiorenal syndrome, fluid overload, congestive he art failure, acute on chronic systolic dysfunction. The patient is on Lasix drip. Continue to monit or electrolytes. The patient was found to have . 2.Congestive heart failure, reduced ejection fraction. Continue Lasix drip. Monitor I's and O's. The patient is started on midodrine for blood pressure support. 3.Coronary artery disease, status post percutaneous transluminal coronary angioplasty. Further onur mmendation from Cardiology. 4.Atrial fibrillation, currently rate controlled. The patient remains on amiodarone. Beta-rojas was used, but previously it was causing hypotension. EB/MODL Voice ID: [id number] Report ID: [id number]
[2023-07-23 05:15] LABS: Hematocrit 28.5 % (36.0-45.0); MCV 97.7 fL (80-100); RBC Red Blood Cell Count 2.91 M/uL (3.86-4.86)
[2023-07-23 05:16] LABS: Absolute Lymphocytes (CBC) 1.1 K/uL (0.7-4.9); Lymphocytes % 8.1 % (15.3-44.8); MPV 8.6 fL (7.6-11.3); Platelets 88 thou/uL (152-406)
[2023-07-23 05:25] LABS: Albumin 3.2 g/dL (3.4-5.0); Phosphorus 2.8 mg/dL (2.5-4.9); Potassium 3.5 mEq/L (3.5-5.1)
--- NOTE | 2023-07-23 07:36 | P.PN ---
Date of Service: 07/23/23 Subjective: feels breathing is slightly improved today compared to day prior; still requiring oxygen supplementation and dyspneic dobhoff in place no new/worsening issues/symptoms no increase in UOP ROS: 10 point ROS as noted above, otherwise negative Physical Exam: GEN: Alert, oriented x3, fatigued appearing HEENT: Normal conjunctiva, sclera anicteric CV: Regular rate and rhythm, no lower extremity edema Pulm: nonlabored respirations on BiPAP at rest, b/l crackles at bases ABD: Soft, nontender, nondistended Neuro: Normal speech, normal affect vitals reviewed Problem List: NSTEMI, with CAD s/p PCI x2 (07/08/23) New onset-acute systolic CHF Acute hypoxic respiratory failure secondary to above New onset afib with RVR/aberrant conduction Nonsustained V. tach RADHA on CKD Transaminitis/mildly elevated bilirubin NIDDM2 with hyperglycemia NSTEMI, with CAD s/p PCI x2 (07/08/23) New onset-acute systolic CHF Acute hypoxic respiratory failure secondary to above New onset afib with RVR/aberrant conduction Nonsustained V. tach Cardiology is following Echo (07/08): 25-30% EF, anterior/apical ankiesis, left atrial enlargement, mod- severe MR, mild TR s/p heart cath (07/08): s/p PCI x2 to the LAD and left circ previously on amiodarone drip, later transitioned to p.o. amiodarone (07/16) continue PO amio continue aspirin, Brilinta. can dc aspirin after 1 month eliquis held secondary to gingival bleed / blood-tinged sputume last week / thrombocytopenia CT thoracolumbar spine (07/19): negative for any bleed. Metoprolol ordered for nonsustained VT is on hold due to hypotension BiPAP as needed for respiratory distress. Wean as tolerated Continue IV solu-medrol started per pulm Patient will need LifeVest placement as outpatient. Patient planned for heart catheterization in the near future for optimized revascularization of the LAD after 1 month - per Dr. Galo. Nephrology to follow to assess need for ultrafiltration or CRRT. Hypotension BP has been low to low-normal this hospitalization remains on low-dose Levophed to maintain MAP > 65 Continue midodrine TID - started 07/21 RADHA on CKD Nephrology consulted Likely multifactorial secondary to cardiorenal syndrome / fluid overload Serum creatinine continue to trend up. continue lasix drip and albumin infusion. continue to monitor renal function renal u/s (07/23): pending Hypokalemia Replete potassium PRN monitor AM labs Transaminitis/mildly elevated bilirubin Likely secondary to acute CHF / hypotension monitor daily labs. stable NIDDM2 with hyperglycemia secondary to steroid use Patient with decreased oral intake Insulin sliding scale. Semglee restarted VTE: eliquis on hold Code: DNR Dispo: Pending Transfer to [place] initiated 07/22/[address] Serrano
[2023-07-23] MEDS ORDERED: AMIODARONE HCL 200 MG TAB ONE ×2 (08:02→21:14)
[2023-07-23] MEDS ORDERED: TICAGRELOR 90 MG TABLET PO ONE ×2 (08:02→21:14)
[2023-07-23] MEDS ORDERED: HYDROCORTISONE SUC 100 MG INJ ONE ×2 (08:03→21:14)
[2023-07-23] MEDS ORDERED: DOCUSATE NA 100 MG CAP PO ONE ×2 (08:03→21:15)
[2023-07-23 08:36] LABS: Hypersegmented Neutrophils PRESENT; Platelet Estimate DECR
[2023-07-23 08:41] LABS: Blood Morphology Comment NOT SEEN (NOT SEEN)
[2023-07-23] MEDS: METOLAZONE 5 MG TABLET PO SCH (11:00)
[2023-07-23] MEDS: ALBUMIN HUMAN IV SCH (11:00)
[2023-07-23] MEDS: FUROSEMIDE IV SCH (11:00)
[2023-07-23] MEDS: NA CHLORIDE 0.9% IV SCH (11:00)
[2023-07-23] MEDS ORDERED: INSULIN REGULAR (HUMAN) 100 UNIT/ML ONE ×3 (11:35→21:15)
--- NOTE | 2023-07-23 12:01 | RAD REPORT ---
EXAM DESCRIPTION: US - Renal Ultrasound-Complete - 07/23/2023 11:53 am CLINICAL HISTORY: RADHA Flank pain COMPARISON: Abdomen 1 View (KUB) dated 07/22/2023; Spine Lumbar Wo Con dated 07/19/2023 FINDINGS: Both kidneys are mildly echogenic. The right kidney measures 9.7 x 4.9 x 4.8 cm. No hydronephrosis, focal mass or perinephric fluid. The left kidney measures 9.2 x 5.1 x 4.0 cm. No hydronephrosis, focal mass or perinephric fluid. The urinary bladder is incompletely distended without gross abnormality seen. IMPRESSION: Mildly echogenic kidneys are seen bilaterally compatible with medical renal disease.
--- NOTE | 2023-07-23 12:16 | P.PN ---
Subjective Date of Service: 07/23/23 Chief Complaint: Congestive heart failure cardiogenic shock Subjective: Improving (Patient is improving doing better off BiPAP still on Levophed) Review of Systems General: Weakness Respiratory: Shortness of Breath Physical Examination - Vital Signs Temperature: 96.9 F Blood Pressure: 86/58 Pulse: 82 Respirations: 25 Pulse Ox (%): 97 - Physical Exam General: Alert, Oriented x3 Neck: Supple Respiratory: Clear to auscultation bilaterally Cardiovascular: No edema, Regular rate/rhythm, Normal S1 S2 Gastrointestinal: Normal bowel sounds, Soft and benign Assessment And Plan - Current Problems (Diagnosis) (1) Shock Current Visit: Yes Status: Acute Plan: Patient is 83 years of age and cardiogenic shock requiring Levophed trial of hydrocortisone renal function is worse patient is on Lasix albumin drip blood gases satisfactory mildly anemic blood sugars are elevated chest x-ray shows cardiomegaly bilateral pleural effusions labs chemistries chest x-ray reviewed
[2023-07-23] MEDS: MIDODRINE HCL 5 MG TABLET PO SCH (13:07)
[2023-07-23] MEDS: INSULIN GLARGINE 100 UNIT/ML SQ ONE (13:08)
[2023-07-23 13:17] LABS: Specific Gravity 1.014 (1.005-1.030); Urine Bacteria 20-50 /HPF (<20); Urine Bilirubin NEGATIVE (Negative); Urine Blood Negative (Negative); Urine Clarity Extremely Turbid (Clear); Urine Color Yellow (Yellow); Urine Glucose NEGATIVE (Negative); Urine Protein NEGATIVE (Negative); Urine RBC <5 /HPF (None Seen); Urine Urobilinogen Normal (Normal)
--- NOTE | 2023-07-23 13:51 | PN ---
Date of Progress Note: 07/23/2023 Subjective: This patient was admitted to the hospital with [id number] [place]. The patient developed cardiogenic shock. The patient had acute kidney injury multifactorial secondary to cardiogenic shock, poor perfusion ATN, cardiorenal syndrome superimposed with contrast induced nephropathy. The patient was started on Lasix drip. The patient on Levophed. The patient's blood pressure maintained okay. Physical Examination: Vital Signs: Blood pressure 105/69, pulse of 84, afebrile. Chest: Crackles bilateral. Heart: S1, S2. Systolic murmur. Abdomen: Soft, nontender. Extremity: Plus edema. Neurologic: Alert. No focality. No tremor. Laboratory Data: Hemoglobin 9.7. Sodium 133, potassium 3.5, bicarb 26, BUN 55. Creatinine trended up, 2. GFR of 23, calcium 9, phosphorus 2.8, albumin 3.2, corrected calcium is 9.8. Current Medications: The patient is on Lasix drip at 10 mg per hour, aspirin, midodrine 5 mg t.i.d., Levophed, atorvastatin, amiodarone. Assessment And Plan: 1. Acute kidney injury secondary to cardiorenal, poor perfusion, ATN, oliguric over volume. I am going to go ahead and increase Lasix drip to 20 mg per hour. We will increase midodrine to provide better blood pressure, better perfusion and we will add metolazone. I had long discussion with the patient regarding if kidney function continued to decline or urine output continue to be low. The patient may need to be initiated on renal replacement therapy given her cardiac history and low blood pressure. The patient will need to be on CRRT. We will follow up the progress over the night and we will monitor and send for workup. 2. Hypertension, currently blood pressure on the lower side. Continue midodrine. Continue Levophed. 3. Cardiogenic shock secondary to [id number] [place] complicated with acute kidney injury secondary to poor perfusion ATN and respiratory failure secondary to over volume. We will continue diuresis. Will follow up with Cardiology. 4. Cardiac arrhythmia, continue amiodarone. 5. Hyponatremia secondary to renal failure, congestive heart failure. We will follow up the patient. 6. Hypokalemia. We will supplement cautiously. Time spent examining the patient [id number] reviewing that the lab and the radiology placing orders or discussing the case with the patient discussing the case with the steam roller operator including hospitalist and nursing ICU staff more than 35-minute NICHOL/CARMELINA Voice ID: [id number] Report ID: [id number] LORY
[2023-07-23] MEDS ORDERED: ACETAMINOPHEN 325 MG TABLET ONE (14:28)
[2023-07-23 16:16] LABS: UR PROTEIN 20.4 mg/dL (<11.9); Urine Protein/Creatinine Ratio 0.28 ratio (<0.15)
--- NOTE | 2023-07-23 22:40 | RAD REPORT ---
EXAM DESCRIPTION: RAD - Abdomen 1 View (KUB) - 07/23/2023 10:07 pm CLINICAL HISTORY: dobhoff came out some needed to be reinserted COMPARISON: Abdomen 1 View (KUB) dated 07/22/2023 TECHNIQUE: Single AP view of the abdomen. FINDINGS: Satisfactory positioning of weighted enteric tube projecting over the distal stomach. Nonobstructive bowel gas pattern. No air-fluid levels, free air, or pneumatosis. No suspicious calcif ications. No significant bony abnormality. IMPRESSION: Satisfactory positioning of weighted enteric tube.
[2023-07-24 05:07] VITALS: TEMP 97.6; BMI 27.1
[2023-07-24 05:10] LABS: Hematocrit 26.3 % (36.0-45.0); RBC Red Blood Cell Count 2.66 M/uL (3.86-4.86)
[2023-07-24 05:11] LABS: MCV 98.6 fL (80-100); MPV 8.8 fL (7.6-11.3); Platelets 83 thou/uL (152-406)
[2023-07-24 05:56] LABS: Albumin 3.8 g/dL (3.4-5.0); Ferritin 469.2 ng/mL (8-388); Magnesium 2.4 mg/dL (1.6-2.4); Phosphorus 3.3 mg/dL (2.5-4.9); Potassium 3.2 mEq/L (3.5-5.1); Thyroid Stimulating Hormone 1.04 uIU/mL (0.358-3.740); Uric Acid 6.5 mg/dL (2.6-6.0)
--- NOTE | 2023-07-24 08:34 | RAD REPORT ---
[facility] 6:34 am CLINICAL HISTORY: f/u opacities/effusion COMPARISON: Chest Single View dated 07/22/2023; Chest Single View dated 07/21/2023 TECHNIQUE: Portable AP view of the chest. FINDINGS: Left arm PICC and enteric tube in place. Improving aeration in the left lung base and to l latasha extent improvement in the retrocardiac space as well. Residual trace effusions and central inte rstitial prominence with hazy opacities. No pneumothorax or effusion. The cardiomediastinal contours are unremarkable. IMPRESSION: Findings suggesting partial improvement of pulmonary edema.
[2023-07-24] MEDS ORDERED: KCL 20 MEQ/100 mL IVPB 100 ML IV SCH (09:00)
[2023-07-24] MEDS ORDERED: INSULIN GLARGINE 100 UNIT/ML SQ ONE (09:07)
[2023-07-24] MEDS ORDERED: TICAGRELOR 90 MG TABLET PO ONE (09:07)
[2023-07-24] MEDS ORDERED: HYDROCORTISONE SUC 100 MG INJ ONE (09:07)
[2023-07-24] MEDS ORDERED: AMIODARONE HCL 200 MG TAB ONE (09:07)
[2023-07-24] MEDS ORDERED: INSULIN REGULAR (HUMAN) 100 UNIT/ML ONE (09:08)
[2023-07-24] MEDS ORDERED: DOCUSATE NA 100 MG CAP PO ONE (09:09)
[2023-07-24] MEDS: INSULIN GLARGINE 100 UNIT/ML SQ SCH (09:39)
[2023-07-24 09:46] VITALS: O2SAT 92
[2023-07-24 10:07] VITALS: BP 99/61
--- NOTE | 2023-07-24 10:11 | P.PN ---
Date of Service: 07/24/23 Subjective: ROS: 10 point ROS as noted above, otherwise negative Physical Exam: GEN: Alert, oriented x3, fatigued appearing HEENT: Normal conjunctiva, sclera anicteric CV: Regular rate and rhythm, no lower extremity edema Pulm: nonlabored respirations on BiPAP at rest, b/l crackles at bases ABD: Soft, nontender, nondistended Neuro: Normal speech, normal affect vitals reviewed Problem List: NSTEMI, with CAD s/p PCI x2 (07/08/23) New onset-acute systolic CHF Acute hypoxic respiratory failure secondary to above New onset afib with RVR/aberrant conduction Nonsustained V. tach RADHA on CKD Transaminitis/mildly elevated bilirubin NIDDM2 with hyperglycemia NSTEMI, with CAD s/p PCI x2 (07/08/23) New onset-acute systolic CHF Acute hypoxic respiratory failure secondary to above New onset afib with RVR/aberrant conduction Nonsustained V. tach Cardiology is following Echo (07/08): 25-30% EF, anterior/apical ankiesis, left atrial enlargement, mod- severe MR, mild TR s/p heart cath (07/08): s/p PCI x2 to the LAD and left circ previously on amiodarone drip, later transitioned to p.o. amiodarone (07/16) continue PO amio continue aspirin, Brilinta. can dc aspirin after 1 month eliquis held secondary to gingival bleed / blood-tinged sputume last week / thrombocytopenia CT thoracolumbar spine (07/19): negative for any bleed. Metoprolol ordered for nonsustained VT is on hold due to hypotension BiPAP as needed for respiratory distress. Wean as tolerated Continue IV solu-medrol started per pulm Patient will need LifeVest placement as outpatient. Patient planned for heart catheterization in the near future for optimized revascularization of the LAD after 1 month - per Dr. Galo. Nephrology to follow to assess need for ultrafiltration or CRRT. Hypotension BP has been low to low-normal this hospitalization remains on low-dose Levophed to maintain MAP > 65 Continue midodrine TID - started 07/21 RADHA on CKD Nephrology consulted Likely multifactorial secondary to cardiorenal syndrome / fluid overload Serum creatinine continue to trend up. continue lasix drip and albumin infusion. continue to monitor renal function renal u/s (07/23): pending Hypokalemia Replete potassium PRN monitor AM labs Transaminitis/mildly elevated bilirubin Likely secondary to acute CHF / hypotension monitor daily labs. stable NIDDM2 with hyperglycemia secondary to steroid use Patient with decreased oral intake Insulin sliding scale. Semglee restarted VTE: eliquis on hold Code: DNR Dispo: Pending Transfer to [place] initiated 07/22/[address] Serrano
--- NOTE | 2023-07-24 11:23 | P.DS ---
Admission Date: 07/08/23 Discharge Date: 07/24/23 Disposition: [facility] Reason for Admission: Congestive heart failure cardiogenic shock Consultations: Cardiology - Dr. Galo Pulmonology - Dr. Queen Nephrology - Dr. Sanchez, Dr. Gutierrez-Jered Brief History of Present Illness: 83yo F, PMH: diabetes, Hyperlipidemia, and cholecystectomy, Patient who presents to the ED with complaints of shortness of breath that have worsened in the last week but has been in existence for 3 months total. When she arrived to the ED, EKG showed wide-complex QRS, troponin 4778.8, BNP 8776, HR 140. While in the ED, Dr. Galo was consulted recommended 150 mg amiodarone, heparin bolus, 12 mg adenosine x 2, Lasix 40 mg. EKG was normalized. On examination, She was AAOx3, conversant, no chest pain, tolerating the CPAP with satisfactory oxygenation, and a good historian. Her HR was 88 in NSR at that time. EKG Rate is 140 beats/min. Rhythm is regular. QRS interval is prolonged. Wide complex tachycardia. Initial vital BP 103 / 79; Pulse 113; Resp 31; Temp 97.7(O); Pulse Ox 95% on 2 lpm NC. Laboratory evaluation troponin 4578.8, BNP 8776, T. bili 1.6, direct bili 0.6, indirect bili 1.0, AST 71, serum glucose 220 sodium 136, potassium 3.6, magnesium 1.7, PT/INR 15.6/1.43. Dr. Galo consulted and will take to the Engineering Department Chair today. Hospital Course: Problem List: NSTEMI, with CAD s/p PCI x2 (07/08/23) New onset-acute systolic CHF Acute hypoxic respiratory failure secondary to above New onset afib with RVR/aberrant conduction Nonsustained V. tach RADHA on CKD Transaminitis/mildly elevated bilirubin NIDDM2 with hyperglycemia Patient presented with worsening shortness of breath. Troponins were significantly elevated. BNP 8k. Echocardiogram noted 25-30% EF, anterior/apical ankiesis, left atrial enlargement, mod-severe MR, mild TR. Cardiology was consulted. Patient was taken to OR for heart cath on 07/08/23 and had 2 PCI placed to the LAD and left circ. Patient was started on an amiodarone drip for nonsustained V.tach and heart rate improved. Amio drip was transitioned to po amiodarone on 07/16 and patient's HR has been stable in 70-80s. Dr. Galo planning for another heart cath in near future for optimized revascularization of the LAD after 1 month. Recommend patient to follow up as outpatient for LifeVest placement. Transfer was initiated to higher level of care facility - [place] on 07/22/[address] Serrano. Eliquis has been on hold secondary to gingival bleed / blood-tinged sputume last week / thrombocytopenia. CT thoracolumbar spine on 07/19 was negative for any bleed. RADHA on CKD Nephrology was consulted. Creatinine noted to trend up throughout hospitalization. RADHA etiology likely multifactorial secondary to cardiorenal syndrome / fluid overload / ATN / poor perfusion. Patient has been on a lasix drip / albumin infusion this hospitalization. Renal ultrasound 07/23 with mildly echogenic kidneys bilaterally compatible with medical renal disease. Discussed with nephrology, patient may benefit from ultrafiltration / CRRT Creatinine on discharge: 2.56 Hypotension Blood pressure has been low to low-normal this hospitalization. Patient required multiple days of low-dose levophed to maintain map > 65. Off levophed since 07/23. Midodrine 10mg TID was also added 07/21 per nephrology to help improve BP. Physical Exam: GEN: Alert, oriented x3, fatigued appearing HEENT: Normal conjunctiva, sclera anicteric CV: Regular rate and rhythm, no lower extremity edema Pulm: nonlabored respirations on BiPAP at rest, b/l crackles at bases ABD: Soft, nontender, nondistended Neuro: Normal speech, normal affect Vital Signs/Physical Exam: Temp Pulse Resp BP Pulse Ox 97.6 F 84 21 H 99/61 92 07/24/23 04:00 07/24/23 09:00 07/24/23 09:00 07/24/23 09:00 07/24/23 09:00 Laboratory Data at Discharge: WBC 15.50 thou/uL (4.3-10.9) H 07/24/23 04:42 Hgb 9.0 g/dL (12.0-15.0) L 07/24/23 04:42 Hct 26.3 % (36.0-45.0) L 07/24/23 04:42 Plt Count 83 thou/uL (152-406) L 07/24/23 04:42 PT 15.6 SECONDS (9.5-12.5) H 07/08/23 10:55 INR 1.43 07/08/23 10:55 APTT 60.9 SECONDS (24.3-36.9) H 07/10/23 01:25 Sodium 134 mEq/L (136-145) L 07/24/23 04:42 Potassium 3.2 mEq/L (3.5-5.1) L 07/24/23 04:42 BUN 74 mg/dL (7-18) H 07/24/23 04:42 Creatinine 2.56 mg/dL (0.55-1.02) H 07/24/23 04:42 Glucose 277 mg/dL (74-106) H 07/24/23 04:42 Uric Acid 6.5 mg/dL (2.6-6.0) H 07/24/23 04:42 Phosphorus 3.3 mg/dL (2.5-4.9) 07/24/23 04:42 Magnesium 2.4 mg/dL (1.6-2.4) 07/24/23 04:42 Total Bilirubin 2.1 mg/dL (0.2-1.0) H 07/19/23 05:20 AST 54 U/L (15-37) H 07/19/23 05:20 ALT 39 U/L (13-56) 07/19/23 05:20 Alkaline Phosphatase 120 U/L (45-117) H 07/19/23 05:20 Triglycerides 147 mg/dL (<150) 07/08/23 10:00 Cholesterol 146 mg/dL (<200) 07/08/23 10:00 HDL Cholesterol 35 mg/dL (40-60) L 07/08/23 10:00 Cholesterol/HDL Ratio 4.17 07/08/23 10:00 Home Medications: Biotin 1 cap PO DAILY 07/11/23 Cholecalciferol (Vitamin D3) [Vitamin D 1000 Iu Tab*] 1 tab PO DAILY 07/11/23 Amiodarone HCl [Cordarone*] 200 mg PO BID #60 tab 07/20/23 Apixaban [Eliquis *] 2.5 mg PO BID #60 tab 07/20/23 Aspirin Chewable [Aspirin Chewable*] 81 mg PO DAILY #30 tab.chew 07/20/23 Atorvastatin Calcium [Lipitor] 40 mg PO BEDTIME #30 tab 07/20/23 Docusate [Colace Cap*] 100 mg PO BID #60 cap 07/20/23 Ensure High Protein 237 ml PO BID #60 can 07/20/23 Furosemide [Lasix*] 40 mg PO BIDL #30 tab 07/20/23 Metoprolol Tartrate [Lopressor*] 12.5 mg PO BID 6AM 6PM #30 tab 07/20/23 Ticagrelor [Brilinta*] 90 mg PO BID #60 tab 07/20/23 New Medications: Aspirin Chewable [Aspirin Chewable*] 81 mg PO DAILY #30 tab.chew Ticagrelor [Brilinta*] 90 mg PO BID #60 tab Docusate [Colace Cap*] 100 mg PO BID #60 cap Amiodarone HCl [Cordarone*] 200 mg PO BID #60 tab Apixaban [Eliquis *] 2.5 mg PO BID #60 tab Ensure High Protein 237 ml PO BID #60 can Furosemide [Lasix*] 40 mg PO BIDL #30 tab Atorvastatin Calcium [Lipitor] 40 mg PO BEDTIME #30 tab Metoprolol Tartrate [Lopressor*] 12.5 mg PO BID 6AM 6PM #30 tab Physician Discharge Instructions: Patient presented with worsening shortness of breath. Troponins were significantly elevated. BNP 8k. Echocardiogram noted 25-30% EF, anterior/apical ankiesis, left atrial enlargement, mod-severe MR, mild TR. Cardiology was consulted. Patient was taken to OR for heart cath on 07/08/23 and had 2 PCI placed to the LAD and left circ. Patient was started on an amiodarone drip for nonsustained V.tach and heart rate improved. Amio drip was transitioned to po amiodarone on 07/16 and patient's HR has been stable in 70-80s. Dr. Galo planning for another heart cath in near future for optimized revascularization of the LAD after 1 month. Recommend patient to follow up as outpatient for LifeVest placement. Transfer was initiated to higher level of care facility - [place] on 07/22/[address] Baidoo. Eliquis has been on hold secondary to gingival bleed / blood-tinged sputume last week / thrombocytopenia. CT thoracolumbar spine on 07/19 was negative for any bl eed. RADHA on CKD Nephrology was consulted. Creatinine noted to trend up throughout hospitalization. RADHA etiology likely multifactorial secondary to cardiorenal syndrome / fluid overload / ATN / poor perfusion. Patient has been on a lasix drip / albumin infusion this hospitalization. Renal ultrasound 07/23 with mildly echogenic kidneys bilaterally compatible with medical renal disease. Discussed with nephrology, patient may benefit from ultrafiltration / CRRT Creatinine on discharge: 2.56 Hypotension Blood pressure has been low to low-normal this hospitalization. Patient required multiple days of low-dose levophed to maintain map > 65. Off levophed since 07/23. Midodrine 10mg TID was also added 07/21 per nephrology to help improve BP. Diet: Regular Activity: Fall precautions Followup: [facility] [Primary Care Provider] - Fabio Galo MD [ACTIVE - CAN ADMIT] - (within 2 weeks) Time spent managing pt's care (in minutes): 45
--- NOTE | 2023-07-24 12:19 | PN ---
Date of Progress Note: 07/24/2023 Subjective: The patient was admitted to the hospital with [id number] [place]. The patient had cardiogenic shock. The patient had acute kidney injury secondary to cardiorenal, poor perfusion, ATN. The patient has been oliguric yesterday. We increased Lasix drip, added metolazone. The patient had increase in her urine output, but still over-volume. Kidney function getting worse. Physical Examination: Vital Signs: Blood pressure 99/61, pulse of 84, afebrile. Chest: Crackles bilateral. Heart: S1, S2, systolic murmur. Abdomen: Soft, nontender. Extremities: Plus edema. Neuro: Alert. No focality. Lab: Hemoglobin 9. Sodium 134, potassium 3.2, bicarb 25, BUN 74, creatinine 2.5, GFR of 18. Calcium 9.5, phosphorus 3.3. Iron saturation of 37, ferritin 469. Current Medications: The patient on include: 1. Aspirin. 2. Midodrine 10 t.i.d. 3. Eliquis 2.5 b.i.d. 4. Atorvastatin. Assessment And Plan: 1. Acute kidney injury secondary to cardiorenal, poor perfusion, ATN, over- volume, nonoliguric. The patient needs to be started on CRRT. The patient is going to be transferred to [place] for CRRT. 2. Hypertension. Currently blood pressure on the lower side. Keep holding blood pressure medication. Continue midodrine and Levophed. Continue Lasix drip to utilize blood pressure for more diuresis. 3. Cardiogenic shock secondary to [id number] [place], complicated with acute kidney injury secondary to poor perfusion, ATN, cardiorenal and respiratory failure secondary to over-volume. Continue Lasix drip. Continue Levophed. Follow up with Cardiology. Plan to transfer for CRRT. 4. Hypokalemia. We will supplement cautiously. 5. Hyponatremia, dilutional. We will continue diuresis. 6. Anemia of chronic kidney disease. Start IVORY. Follow up serum protein electrophoresis. Time spent examining the patient [id number] reviewing Lab and radiology placing orders discussing the case with the patient and steam conditioning operator including hospitalist and nursing staff more than 35 minutes ASH Voice ID: [id number] Report ID: [id number] LORY
[2023-07-25 03:38] LABS: Rheumatoid Factor NEG (NEG)
--- NOTE | 2023-07-25 14:52 | EKG ---
Test Date: 2023-07-20 Test Time: 23:56:43 Residential Pest Control Technician: TO MEASUREMENT RESULTS: Intervals: Rate: 87 CO: 222 QRSD: 108 QT: 384 QTc: 462 Follansbee: P: 67 CO: 222 QRS: 116 T: -2 INTERPRETIVE STATEMENTS: Sinus rhythm with 1st degree AV block Right axis deviation Low voltage QRS Cannot rule out Anterior infarct, age undetermined Lateral injury pattern ACUTE DE Abnormal ECG Compared to ECG 07/20/2023 23:55:36 Low QRS voltage now present Ventricular premature complex(es) no longer present Myocardial infarct finding still present Electronically Signed On 07-25-23 14:45:31 POWER PLANT ELECTRICIAN by Fabio Galo
--- NOTE | 2023-07-25 14:52 | EKG ---
Test Date: 2023-07-20 Test Time: 23:55:36 [employer]insmith App[employer]ice: TO MEASUREMENT RESULTS: Intervals: Rate: 83 NH: 224 QRSD: 116 QT: 370 QTc: 434 [place]: P: 55 NH: 224 QRS: 128 T: 6 INTERPRETIVE STATEMENTS: Sinus rhythm with 1st degree AV block with occasional premature ventricular complexes Right axis deviation Cannot rule out Anterior infarct, age undetermined Lateral injury pattern ACUTE SD Abnormal ECG Compared to ECG 07/19/2023 05:40:55 Ventricular premature complex(es) now present First degree AV block now present Right-axis deviation now present Myocardial infarct finding still present Electronically Signed On 07-25-23 14:45:36 [employer] by Fabio Galo
[2023-07-30 14:14] LABS: Albumin, (SPE) 4.1 g/dL (3.8-4.8); Alpha-1-Globulins 0.2 g/dL (0.2-0.3); Alpha-2-Globulins 0.3 g/dL (0.5-0.9); Gamma Globulins 1.2 g/dL (0.8-1.7); INTERPRETATION REPORT
[2023-07-30 23:10] LABS: Vitamin D 1,25-Dihydroxy Total 17 pg/mL (18-72); Vitamin D,1,25-OH2, D2 <8 pg/mL
== END 2023-07-24 11:00 | DRG 321 ==
LOC: ER 09:08 → ERHOLD 14:03 → 4TH 21:11 → 3RD-ICU 07-11 15:35 → 4TH 07-17 19:51 → 3RD-ICU 07-21 10:23
PROVIDERS: ADMIT Internal Medicine; ATTEND Hospitalist
PROC: 027035Z Dilation of Coronary Artery, One Artery with Two Drug-eluting Intraluminal Devices, Percutaneous Approach (ICD-10-PCS; 2023-07-08)
PROC: 4A023N7 Measurement of Cardiac Sampling and Pressure, Left Heart, Percutaneous Approach (ICD-10-PCS; 2023-07-08)
PROC: B2111ZZ Fluoroscopy of Multiple Coronary Arteries using Low Osmolar Contrast (ICD-10-PCS; 2023-07-08)
PROC: 5A09457 Assistance with Respiratory Ventilation, 24-96 Consecutive Hours, Continuous Positive Airway Pressure (ICD-10-PCS; principal; 2023-07-20)
PROC: 3E033XZ Introduction of Vasopressor into Peripheral Vein, Percutaneous Approach (ICD-10-PCS; 2023-07-20)
PROC: 02HV33Z Insertion of Infusion Device into Superior Vena Cava, Percutaneous Approach (ICD-10-PCS; 2023-07-21)
DX: I21.4 Non-ST elevation (NSTEMI) myocardial infarction (principal); I50.43 Acute on chronic combined systolic (congestive) and diastolic (congestive) heart failure; J96.01 Acute respiratory failure with hypoxia; R57.0 Cardiogenic shock; N17.0 Acute kidney failure with tubular necrosis; I47.10 Supraventricular tachycardia, unspecified; E87.1 Hypo-osmolality and hyponatremia; I11.0 Hypertensive heart disease with heart failure; E11.65 Type 2 diabetes mellitus with hyperglycemia; D63.1 Anemia in chronic kidney disease; E78.5 Hyperlipidemia, unspecified; I49.9 Cardiac arrhythmia, unspecified; I48.91 Unspecified atrial fibrillation; E87.6 Hypokalemia; D69.6 Thrombocytopenia, unspecified; I08.1 Rheumatic disorders of both mitral and tricuspid valves; N18.9 Chronic kidney disease, unspecified; E11.22 Type 2 diabetes mellitus with diabetic chronic kidney disease; I25.10 Atherosclerotic heart disease of native coronary artery without angina pectoris; R74.01 Elevation of levels of liver transaminase levels; Z66 Do not resuscitate; Z88.5 Allergy status to narcotic agent; Z90.49 Acquired absence of other specified parts of digestive tract; Z11.52 Encounter for screening for COVID-19; Z79.01 Long term (current) use of anticoagulants; Z79.82 Long term (current) use of aspirin; Z79.899 Other long term (current) drug therapy
CPT/HCPCS: 36415; 36600; 51702; 71045; 72128; 72131; 74018; 76770; 76937; 80048; 80053; 80061; 80069; 80076; 81001; 82248; 82550; 82570; 82607; 82652; 82728; 82805; 82947; 83036; 83520; 83540; 83735; 83880; 84100; 84132; 84145; 84156; 84165; 84443; 84466; 84484; 84550; 85025; 85027; 85044; 85347; 85610; 85730; 86021; 86160; 86225; 86430; 86803; 87811; 92526; 92610; 92928; 93005; 93306; 93458; 94660; 94760; 97110; 97116; 97161; 97164; 97530; 99285; C1725; C1893; J0153; J0282; J0461; J1644; J1720; J1815; J1940; J2001; J2250; J2270; J3010; J3475; J3480; J7040; J7050; J7060; P9047; Q9967